=== PATIENT | female | born 1940 | race Caucasian/White ===

== ENCOUNTER 2016-10-16 16:06 | Inpatient (IN) | payer OTHER, MEDICARE ==
[2016-10-16] VITALS (23 sets, daily range): BP systolic 86–201; BP diastolic 48–141; PULSE 66–171; RESP 16–25; TEMP 99.4–104.2; O2SAT 72–100
[~2016-10-16 16:06] MED LIST: ATEN1TAB71 PO; DOCU250C PO; FLUO20TA20 PO; FOSA70TA PO; GLIP5 PO; LISI40TA PO; PERC5TAB12 PO; PRAV80 PO
[2016-10-16] MEDS ORDERED: metroNIDAZOLE 500 MG INJ 100 ML IV STA (16:11)
[2016-10-16] MEDS ORDERED: AZTREONAM INJ 2,000 MG in SODIUM CHLORIDE 0.9% INJ 100 ML IV STA (16:11)
[2016-10-16] MEDS ORDERED: AZITHROMYCIN INJ 500 MG in SODIUM CHLOR 0.9% 250 ML INJ 250 ML IV STA (16:11)
[2016-10-16] MEDS ORDERED: CEFEPIME INJ 2,000 MG in SODIUM CHLORIDE 0.9% INJ 100 ML IV STA (16:11)
[2016-10-16] MEDS ORDERED: VANCOMYCIN INJ 1 MG in SODIUM CHLOR 0.9% 250 ML INJ 250 ML IV STA (16:11)
[2016-10-16] MEDS ORDERED: DILTIAZEM INJ 125 MG in SODIUM CHLORIDE 0.9% INJ 100 ML IV SCH (16:15)
[2016-10-16] MEDS ORDERED: ACETAMINOPHEN 650 MG SUPP RECTAL ONE (16:30)
--- NOTE | 2016-10-16 16:32 | RADHPO ---
EXAM DATE/TIME: 10/16/2016 16:20 [facility] COMPARISON: No previous studies available for comparison. INDICATIONS : Post endotracheal tube placement. Syncope. MEDICAL HISTORY : Non-responsive SURGICAL HISTORY : Non-responsive ENCOUNTER: Initial ACUITY: 1 day PAIN SCORE: Non-responsive. LOCATION: Bilateral chest FINDINGS: The endotracheal tube has its tip in good position approximately 3 cm above the trev. Left perihil ar infiltrate is noted. The heart is mildly enlarged. Degenerative changes are noted throughout the thoracic spine. CONCLUSION: 1. Endotracheal tube approximately 3 cm above the trev in good position. 2. Left perihilar infiltrate is noted. 3. Mild cardiomegaly. 4. Degenerative changes involving the thoracic spine. Fahad Najera MD on October 16, 2016 at 16:27 Board Certified Radiologist. This report was verified electronically.
--- NOTE | 2016-10-16 16:54 | PD ---
HPI Chief Complaint: unresponsive Time Seen by Provider: 16:09 Travel History International Travel<30 days: No Contact w/Intl Traveler<30days: No Traveled to known affect area: No History of Present Illness HPI [phone] 76-year-old female was apparently found unresponsive in her home. Neighbors had reportedly noted that they had not seen her for 2-3 days. These papers were filed up outside the door. Paramedics found her unresponsive in respiratory distress. I have spoken with her daughter, Lizette Lriiano ) who indicates that she is not aware of history of heart disease or stroke in her mother. She does have a history of diabetes and was unresponsive once because of hypoglycemia. Her doctor is Dr. Miranda. The daughter is trying to find a list of her medication PFS Past Medical History Arthritis: Yes Blood Disorders: No Cancer: No Cardiovascular Problems: Yes High Cholesterol: Yes Diabetes: Yes Diminished Hearing: No Endocrine: Yes Genitourinary: No Hypertension: Yes Immune Disorder: No Musculoskeletal: Yes Neurologic: No Psychiatric: No Reproductive: No Respiratory: No Menopausal: Yes Past Surgical History Gynecologic Surgery: Yes (HYSTERECTOMY) Hysterectomy: Yes Neurologic Surgery: Yes (BACK) Tonsillectomy: Yes Other Surgery: Yes (TONSILS) Social History Alcohol Use: Yes (ocassionally) Tobacco Use: No Substance Use: No Allergies-Medications (Allergen,Severity, Reaction): Coded Allergies: Penicillin (Verified Allergy, Severe, HIVES, 02/06/14) Reported Meds & Prescriptions Reported Meds & Active Scripts Active Colace (Docusate Sodium) 250 Mg Cap 250 Mg PO BID 5 Days Percocet 5-325 mg (Oxycodone/Acetaminophen) Oxycodone 5/325 Acetaminophen Tab 1 Tab PO Q4H PRN Reported Pravachol 80 Mg Tab (Pravastatin Sod) 80 Mg Tab 80 Mg PO DAILY Prinivil (Lisinopril) 40 Mg Tab 40 Mg PO DAILY Fluoxetine Hcl (Fluoxetine HCl) 20 Mg Cap 20 Mg PO DAILY Fosamax (Alendronate Sodium) 70 Mg Tab 70 Mg PO Q7D TAKE 30 MINUTES BEFORE THE MORNING MEAL, ONLY WATER Tenoretic-50 (Atenolol/Chlorthalidone) 1 Tab Tab 2 Tab PO DAILY Glucotrol (Glipizide) 5 Mg Tab 5 Mg PO BID Review of Systems ROS Limitations: Altered Mental Status, Unresponsive Physical Exam Narrative Patient is in marked respiratory distress on arrival. She is unresponsive. Oxygen saturation on arrival is 60% in spite of 100% oxygen GENERAL: Well-developed female in marked respiratory distress. Her temp is 104.8 and heart rate is 120 and irregular SKIN: Warm and dry. HEAD: . Normocephalic. There is a blood-filled blister on her upper lip. EYES: Right pupil is 5 mm on arrival. The left is 4 mm. Neither pupil is reactive No scleral icterus. No injection or drainage. ENT: No nasal bleeding or discharge. Mucous membranes dry. There are multiple bruises on the right side of the tongue NECK: Trachea midline. No JVD. CARDIOVASCULAR: Rapid irregular rate. No murmur appreciated. RESPIRATORY: Coarse rhonchi bilaterally GASTROINTESTINAL: Abdomen soft, non-tender, nondistended. Hepatic and splenic margins not palpable. MUSCULOSKELETAL: No obvious deformities. Left leg is slightly shorter than the right. No clubbing. No cyanosis. No edema. NEUROLOGICAL: Unresponsive. No withdrawal to painful stimuli. There is some grimace. He has noted pupils are unequal with the right larger than the left and neither one reactive Data Data Last Documented VS Vital Signs Date Time Temp Pulse Resp B/P Pulse Ox O2 Delivery O2 Flow Rate FiO2 10/16/16 17:32 99 60 10/16/16 16:15 Non-Rebreather 15 10/16/16 16:10 104.0 171 162/68 Orders Electrocardiogram (10/16/16 16:11) Complete Blood Count With Diff (10/16/16 16:11) Comprehensive Metabolic Panel (10/16/16 16:11) Prothrombin Time / Inr (Pt) (10/16/16 16:11) Act Partial Throm Time (Ptt) (10/16/16 16:11) Lactic Acid Sepsis Protocol (10/16/16 16:11) Magnesium (Mg) (10/16/16 16:11) Troponin I (10/16/16 16:11) Urinalysis - C+S If Indicated (10/16/16 16:11) Influenzae A/B Antigen (10/16/16 16:11) Blood Culture (10/16/16 16:11) Chest, Single Ap (10/16/16 16:11) Arterial Blood Gas (Abg) (10/16/16 16:11) Blood Glucose (10/16/16 16:11) Ecg Monitoring (10/16/16 16:11) Iv Access Insert/Monitor (10/16/16 16:11) Oximetry (10/16/16 16:11) Oxygen Administration (10/16/16 16:11) Ct Brain W/O Iv Contrast(Rout) (10/16/16 16:11) Vancomycin Inj (Vancomycin Inj) (10/16/16 16:11) Metronidazole 500 Mg Inj (Flagyl 500 Mg (10/16/16 16:11) Cefepime Inj (Maxipime Inj) (10/16/16 16:11) Azithromycin Inj (Zithromax Inj) (10/16/16 16:11) Aztreonam Inj (Azactam Inj) (10/16/16 16:11) Blood Pressure (10/16/16 16:11) Vital Signs (10/16/16 16:11) Diltiazem Inj (Cardizem Inj) (10/16/16 16:15) Acetaminophen Supp (Tylenol Supp) (10/16/16 16:30) Sodium Chlor 0.9% 1000 Ml Inj (Ns 1000 M (10/16/16 17:00) Electrocardiogram (10/16/16 17:17) Potassium Chlor 20 Meq Premix (Kcl 20 Me (10/16/16 17:45) Creatine Kinase (Cpk) (10/16/16 16:42) Admit Order (Ed Use Only) (10/16/16 18:16) Aspirin Supp (Aspirin Supp) (10/16/16 18:30) Labs Laboratory Tests Test 10/16/16 10/16/16 10/16/16 16:35 16:42 16:55 Urine Collection Type CATH Urine Color YELLOW Urine Turbidity CLEAR Urine pH 5.5 Urine Specific [place] 1.010 Urine Protein 30 mg/dL Urine Glucose (UA) NEG mg/dL Urine Ketones NEG mg/dL Urine Occult Blood NEG Urine Nitrite NEG Urine Bilirubin NEG Urine Leukocyte Esterase NEG Urine RBC 0-3 /hpf Urine Squamous Epithelial 0-5 /hpf Cells Microscopic Urinalysis Comment CULT NOT INDICATED White Blood Count 14.0 TH/MM3 Red Blood Count 3.37 MIL/MM3 Hemoglobin 9.4 GM/DL Hematocrit 29.2 % Mean Corpuscular Volume 86.7 FL Mean Corpuscular Hemoglobin 28.1 PG Mean Corpuscular Hemoglobin 32.3 % Concent Red Cell Distribution Width 15.3 % Platelet Count 262 TH/MM3 Mean Platelet Volume 7.3 FL Neutrophils (%) (Auto) 90.2 % Lymphocytes (%) (Auto) 5.1 % Monocytes (%) (Auto) 4.4 % Eosinophils (%) (Auto) 0.1 % Basophils (%) (Auto) 0.2 % Neutrophils # (Auto) 12.7 TH/MM3 Lymphocytes # (Auto) 0.7 TH/MM3 Monocytes # (Auto) 0.6 TH/MM3 Eosinophils # (Auto) 0.0 TH/MM3 Basophils # (Auto) 0.0 TH/MM3 CBC Comment DIFF FINAL Differential Comment Prothrombin Time 21.4 SEC Prothromb Time International 1.9 RATIO Ratio Activated Partial 34.4 SEC Thromboplast Time Sodium Level 152 MEQ/L Potassium Level 2.4 MEQ/L Chloride Level 122 MEQ/L Carbon Dioxide Level 16.4 MEQ/L Anion Gap 14 MEQ/L Blood Urea Nitrogen 28 MG/DL Creatinine 1.60 MG/DL Estimat Glomerular Filtration 31 ML/MIN Rate Random Glucose 155 MG/DL Lactic Acid Level 1.9 mmol/L Calcium Level 5.9 MG/DL Protein Corrected Calcium 7.0 MG/DL Magnesium Level 0.9 MG/DL Total Bilirubin 0.8 MG/DL Aspartate Amino Transf 35 U/L (AST/SGOT) Alanine Aminotransferase 31 U/L (ALT/SGPT) Alkaline Phosphatase 48 U/L Total Creatine Kinase 162 U/L Troponin I 5.16 NG/ML Total Protein 4.6 GM/DL Albumin 1.8 GM/DL Blood Gas Puncture Site RT BRACHIAL Blood Gas Patient Temperature 98.6 Blood Gas HCO3 20 mmol/L Blood Gas Base Excess -3.5 mmol/L Blood Gas Oxygen Saturation 96 % Arterial Blood pH 7.46 Arterial Blood Partial 28 mmHG Pressure CO2 Arterial Blood Partial 159 mmHG Pressure O2 Arterial Blood Oxygen Content 16.9 Vol % Arterial Blood 0.0 % Carboxyhemoglobin Arterial Blood Methemoglobin 0.7 % Blood Gas Hemoglobin 12.3 G/DL Oxygen Delivery Device AC 16/VT550/PEEP 5 Blood Gas Inspired Oxygen 80 % [facility] Medical Decision Making Medical Screen Exam Complete: Yes Emergency Medical Condition: Yes Medical Record Reviewed: Yes Differential Diagnosis Differential includes CVA, intracerebral hemorrhage, pneumonia, Narrative Course EKG on arrival shows atrial fibrillation at a rate of 167. She has a left bundle branch block and marked precordial ST depression. She was given 20 mg of Cardizem and her heart rate is come down considerably and as stated in the range of 70-80. Chest x-ray shows a left heart perihilar pneumonia. The endotracheal tube is in good position. A CT scan of the head was obtained. There is a 1.1 cm area of diminished attenuation left side of the cerebellar vermis with diminished density in the sharon extending up into the cerebral peduncle's and right thalamic nuclei. Possibility of infarct or metastatic disease was raised. It was not felt that an infarct in these regions would be compatible with life. I have discussed the case with Dr Maynard and the patient will be transferred to the intensive care unit at [place]. I discussed the case with Dr. Cardenas recommends rectal aspirin Procedures Procedure Narrative On arrival it was apparent the patient required intubation for airway protection. In addition she was quite hypoxic. There was no gag reflex to direct laryngoscopy. This was done without sedation. It was stomach contents in the airway at the time of laryngoscopy and it appears likely the patient has aspirated prior to arrival. Endotracheal tube was inserted and tube position confirmed with x-ray and good bilateral breath sounds. Diagnosis Primary Impression: Cerebrovascular accident Additional Impression: Pneumonia Admitting Information Admitting Physician Requests: it Renato Lozano MD Oct 16, 2016 16:54
[2016-10-16 16:55] LABS: AUTOMATED NEUTROPHIL # 12.7 TH/MM3 (1.8-7.7); BASOPHIL % 0.2 % (0.0-2.0); EOSINOPHIL % 0.1 % (0.0-4.0); HEMATOCRIT 29.2 % (35.0-46.0); LYMPH % 5.1 % (9.0-44.0); LYMPHOCYTE # 0.7 TH/MM3 (1.0-4.8); MEAN CELL VOLUME 86.7 FL (80.0-100.0); MEAN CORPUSCULAR HEMOGLOBIN 28.1 PG (27.0-34.0); MEAN CORPUSCULAR HGB CONC 32.3 % (32.0-36.0); MONO % 4.4 % (0.0-8.0); NEUT % 90.2 % (16.0-70.0); PLATELET COUNT 262 TH/MM3 (150-450); RED BLOOD COUNT 3.37 MIL/MM3 (4.00-5.30); RED CELL DISTRIBUTION WIDTH 15.3 % (11.6-17.2)
[2016-10-16 17:00] LABS: BLOOD GAS BASE EXCESS -3.5 mmol/L (-2-2); BLOOD GAS HCO3 20 mmol/L (22-26); BLOOD GAS METHEMOGLOBIN 0.7 % (0-2); BLOOD GAS O2 HGB SATURATION 96 % (90-100); BLOOD GAS OXYGEN CONTENT 16.9 Vol % (12.0-20.0); BLOOD GAS PCO2 28 mmHG (38-42); BLOOD GAS PO2 159 mmHG (61-120); BLOOD GAS TOTAL HGB 12.3 G/DL (12.0-16.0); CRITICAL VALUE NO; DRAW SITE RT BRACHIAL; FIO2 80 %; NUMBER OF ARTERIAL PUNCTURES 1; OXYGEN DEVICE AC 16/VT550/PEEP 5; STAT NO; TEMP CORR TO 98.6
[2016-10-16] MEDS ORDERED: SODIUM CHLOR 0.9% 1000 ML INJ 1,000 ML IV ONE ×2 (17:00→19:15)
[2016-10-16 17:03] LABS: BLOOD, URINE NEG (NEG); GLUCOSE,URINE NEG (NEG); KETONE, URINE NEG (NEG); NITRITE,URINE NEG (NEG); PH, URINE 5.5 (5.0-8.5)
[2016-10-16 17:05] LABS: HEMO FLAGS DIFF FINAL
[2016-10-16 17:13] LABS: APTT (PATIENT) 34.4 SEC (24.3-30.1); INTERNATIONAL NORMALIZED RATIO 1.9 RATIO; PROTHROMBIN TIME - PATIENT 21.4 SEC (9.8-11.6)
[2016-10-16 17:16] LABS: METHOD OF COLLECTION CATH; URINE COLOR YELLOW (YELLW/STRAW)
[2016-10-16 17:18] LABS: COMMENT (UR) CULT NOT INDICATED; CULTURE IF INDICATED CULT NOT INDICATED; RBC, URINE 0-3 /hpf (0-3); SQUAMOUS EPITHELIAL CELL URINE 0-5 /hpf (0-5)
[2016-10-16 17:27] LABS: BICARBONATE 16.4 MEQ/L (21.0-32.0); MAGNESIUM 0.9 MG/DL (1.5-2.5); TOTAL BILIRUBIN ADULT 0.8 MG/DL (0.2-1.0)
[2016-10-16 17:31] LABS: POTASSIUM 2.4 MEQ/L (3.5-5.1)
--- NOTE | 2016-10-16 17:40 | RADHPO ---
EXAM DATE/TIME: 10/16/2016 17:11 [facility] COMPARISON: No previous studies available for comparison. INDICATIONS : Altered mental status. RADIATION DOSE: 60.16 CTDIvol (mGy) MEDICAL HISTORY : Hypertension. Carcinoma, breast. SURGICAL HISTORY : None. ENCOUNTER: Initial ACUITY: 1 day PAIN SCALE: Non-responsive LOCATION: cranial TECHNIQUE: Multiple contiguous axial images were obtained of the head. Using automated exposure control and adj ustment of the mA and/or kV according to patient size, radiation dose was kept as low as reasonably a chievable to obtain optimal diagnostic quality images. FINDINGS: CEREBRUM: The ventricles are normal for age. No evidence of midline shift, mass lesion, hemorrhage or acute in farction. No extra-axial fluid collections are seen. POSTERIOR FOSSA: 1.1 cm hypodense area in the left side of the cerebellar vermis. Diffuse hypodensity in the sharon exte nding up into the cerebral peduncles and the right thalamic nuclei. EXTRACRANIAL: The visualized portion of the orbits is intact. Small air-fluid level in the left sphenoid. SKULL: The calvaria is intact. No evidence of skull fracture. CONCLUSION: 1. A 1.1 cm area of diminished attenuation in the left side of the cerebellar vermis with extensive d iminished density in the sharon extending up into the cerebral peduncles and the right thalamic nuclei. An infarct in these regions would be presumably incompatible with life and therefore, I'm concerned that these may represent metastatic deposits. MRI of the brain with and without gadolinium is recomm ended for further characterization. 2. Mild sinusitis in the left sphenoid. Oleg Rey MD on October 16, 2016 at 17:32 Board Certified Radiologist. This report was verified electronically.
[2016-10-16] MEDS ORDERED: ASPIRIN 300 MG SUPP RECTAL ONE (18:30)
[2016-10-16] MEDS ORDERED: DILTIAZEM HCL 25 MG/5 ML VIAL IV ONE (18:30)
[2016-10-16] MEDS ORDERED: DEXT 5%-NACL 0.45% 1000 ML INJ 1,000 ML IV SCH (19:45)
[2016-10-16] MEDS: POTASSIUM CHLOR 20 MEQ PREMIX 100 ML IV SCH ×2 (19:54→22:23)
[2016-10-16] MEDS ORDERED: SODIUM CHLOR 0.9% 1000 ML INJ 1,000 ML IV SCH (20:00)
--- NOTE | 2016-10-16 23:58 | HHI.HP ---
HPI Service Critical Care Medicine Primary Care Physician Unknown Admission Diagnosis CVA, PNEUMONIA, RESPIRATORY FAILURE Diagnosis: Travel History International Travel<30 Days: No Contact w/Intl Traveler <30 Da: No Traveled to Known Affected Are: No History of Present Illness 76-year-old female was found unresponsive in her home. Neighbors had noted that they had not seen her for 2-3 days. Paramedics found her unresponsive in respiratory distress. She does have a history of diabetes and was unresponsive once because of hypoglycemia. Review of Systems ROS Unable to obtain patient is intubated Past Family Social History Allergies: Coded Allergies: Penicillin (Verified Allergy, Severe, HIVES, 10/16/16) Past Medical History Hypertension Dyslipidemia Diabetes mellitus Past Surgical History Hysterectomy Tonsillectomy Reported Medications Reported Meds & Active Scripts Active Active Prescriptions or Reported Medications Unobtainable Active Ordered Medications Current Medications Medications (Trade) Dose Ordered Sig/Moris Route PRN Reason Start Time Stop Time Status Last Admin Dose Admin Sodium Chloride (NS 1000 ml Inj) 1,000 ml @ 200 mls/hr Q5H IV 10/16/16 20:00 10/16/16 19:54 Family History Noncontributory Social History Unknown Physical Exam Vital Signs Vital Signs Date Time Temp Pulse Resp B/P Pulse Ox O2 Delivery O2 Flow Rate FiO2 10/16/16 21:15 99.7 74 25 137/60 100 10/16/16 21:12 100 60 10/16/16 20:20 70 20 116/59 98 Ventilator 10/16/16 20:10 68 20 110/53 97 Ventilator 10/16/16 20:00 70 20 100/51 97 Ventilator 10/16/16 19:50 66 20 94/49 97 Ventilator 10/16/16 19:40 68 20 95/48 96 Ventilator 10/16/16 19:30 68 20 99/49 96 Ventilator 10/16/16 19:20 97 Ventilator 10/16/16 19:20 78 22 109/59 97 Ventilator 10/16/16 19:19 96 60 10/16/16 19:10 74 22 103/58 93 Ventilator 10/16/16 19:10 90 10/16/16 19:00 99.4 69 20 112/54 92 Ventilator 10/16/16 18:31 102.2 71 16 126/58 99 Ventilator 10/16/16 17:32 99 60 10/16/16 17:26 71 111/48 97 Ventilator 10/16/16 17:00 99 100 10/16/16 16:48 69 86/51 97 Ventilator 10/16/16 16:43 72 116/51 100 Ventilator 10/16/16 16:23 69 125/48 100 Ventilator 10/16/16 16:16 72 101/52 100 Ventilator 10/16/16 16:15 72 Non-Rebreather 15 10/16/16 16:10 104.0 171 162/68 72 10/16/16 16:06 80 10/16/16 16:06 104.2 171 16 201/141 96 Ventilator 10/16/16 16:00 97 80 Physical Exam GENERAL: Well-nourished, well-developed patient. SKIN: Warm and dry. HEAD: Normocephalic. EYES: No scleral icterus. No injection or drainage. NECK: Supple, trachea midline. No JVD or lymphadenopathy. CARDIOVASCULAR: Regular rate and rhythm without murmurs, gallops, or rubs. RESPIRATORY: Breath sounds equal bilaterally. No accessory muscle use. GASTROINTESTINAL: Abdomen soft, non-tender, nondistended. MUSCULOSKELETAL: No cyanosis, or edema. BACK: Nontender without obvious deformity. No CVA tenderness. EXTREMITIES: No clubbing cyanosis or edema Laboratory Laboratory Tests Test 10/16/16 10/16/16 10/16/16 16:35 16:42 16:55 Urine Collection Type CATH Urine Color YELLOW Urine Turbidity CLEAR Urine pH 5.5 Urine Specific [place] 1.010 Urine Protein 30 Urine Glucose (UA) NEG Urine Ketones NEG Urine Occult Blood NEG Urine Nitrite NEG Urine Bilirubin NEG Urine Leukocyte Esterase NEG Urine RBC 0-3 Urine Squamous Epithelial 0-5 Cells Microscopic Urinalysis Comment CULT NOT INDICATED White Blood Count 14.0 Red Blood Count 3.37 Hemoglobin 9.4 Hematocrit 29.2 Mean Corpuscular Volume 86.7 Mean Corpuscular Hemoglobin 28.1 Mean Corpuscular Hemoglobin 32.3 Concent Red Cell Distribution Width 15.3 Platelet Count 262 Mean Platelet Volume 7.3 Neutrophils (%) (Auto) 90.2 Lymphocytes (%) (Auto) 5.1 Monocytes (%) (Auto) 4.4 Eosinophils (%) (Auto) 0.1 Basophils (%) (Auto) 0.2 Neutrophils # (Auto) 12.7 Lymphocytes # (Auto) 0.7 Monocytes # (Auto) 0.6 Eosinophils # (Auto) 0.0 Basophils # (Auto) 0.0 CBC Comment DIFF FINAL Differential Comment Prothrombin Time 21.4 Prothromb Time International 1.9 Ratio Activated Partial 34.4 Thromboplast Time Sodium Level 152 Potassium Level 2.4 Chloride Level 122 Carbon Dioxide Level 16.4 Anion Gap 14 Blood Urea Nitrogen 28 Creatinine 1.60 Estimat Glomerular Filtration 31 Rate Random Glucose 155 Lactic Acid Level 1.9 Calcium Level 5.9 Protein Corrected Calcium 7.0 Magnesium Level 0.9 Total Bilirubin 0.8 Aspartate Amino Transf 35 (AST/SGOT) Alanine Aminotransferase 31 (ALT/SGPT) Alkaline Phosphatase 48 Total Creatine Kinase 162 Troponin I 5.16 Total Protein 4.6 Albumin 1.8 Blood Gas Puncture Site RT BRACHIAL Blood Gas Patient Temperature 98.6 Blood Gas HCO3 20 Blood Gas Base Excess -3.5 Blood Gas Oxygen Saturation 96 Arterial Blood pH 7.46 Arterial Blood Partial 28 Pressure CO2 Arterial Blood Partial 159 Pressure O2 Arterial Blood Oxygen Content 16.9 Arterial Blood 0.0 Carboxyhemoglobin Arterial Blood Methemoglobin 0.7 Blood Gas Hemoglobin 12.3 Oxygen Delivery Device AC 16/VT550/PEEP 5 Blood Gas Inspired Oxygen 80 Date/Time Procedure Status Source Growth 10/16/16 19:10 Gram Stain Received Sputum Endotracheal Pending 10/16/16 19:10 Sputum Culture Received Sputum Endotracheal Pending 10/16/16 16:50 Aerobic Blood Culture Received Blood Peripheral Pending 10/16/16 16:50 Anaerobic Blood Culture Received Blood Peripheral Pending 10/16/16 16:46 Influenza Types A,B Antigen ([place]) - Final Complete Nasal Aspirate NEGATIVE FOR FLU A AND B ANTIGEN.... Result Diagram: 10/16/16 1642 10/16/16 1642 Imaging Last [address] 10/16/16 1611 Signed Impressions: Service Date/Time: Sunday, October 16, 2016 17:11 - CONCLUSION: 1. A 1.1 cm area of diminished attenuation in the left side of the cerebellar vermis with extensive diminished density in the sharon extending up into the cerebral peduncles and the right thalamic nuclei. An infarct in these regions would be presumably incompatible with life and therefore, I'm concerned that these may represent metastatic deposits. MRI of the brain with and without gadolinium is recommended for further characterization. 2. Mild sinusitis in the left sphenoid. Oleg Rey MD Assessment and Plan Problem List: (1) Cerebrovascular accident ICD Code: I63.9 Status: Acute (2) Pneumonia ICD Code: J18.9 Status: Acute (3) Respiratory failure ICD Code: J96.90 Status: Acute (4) Coma ICD Code: R40.20 Status: Acute Assessment and Plan Acute respiratory failure - Intubated for an airway protection - Continue mechanical ventilation - Continue duo nebs as needed - No weaning until neurologically improved Altered mental status - Multiple strokes including brainstem - Workup per neurology - Aspirin statins - Blood pressure control to avoid hypertension Elevated troponins - Due to multiple strokes including brainstem will not start patient on anticoagulation other than prophylaxis due to high risk of hemorrhagic conversion - Aspirin and statins - Consult cardiology only if neurologically improved - If there is neurological improvement and potential off meaningful recovery patient will need cardiac catheterization or stress test prior to discharge Acute kidney injury - Due to dehydration - Aggressive IV fluid resuscitation - Monitor urine output electrolytes and renal functions Pneumonia - Community-acquired versus aspiration - Cover with broad-spectrum antibiotics - Follow-up cultures and de-escalate DVT GI prophylaxis - Subcutaneous heparin and Pepcid Critical Care: The total critical care time was 35 minutes. Time to perform other separately billable procedures was not included in the critical care time. Jason Maynard MD Oct 16, 2016 23:58
[2016-10-17] VITALS (22 sets, daily range): BP systolic 128–187; BP diastolic 55–80; PULSE 73–152; RESP 16–30; TEMP 98–102.6; O2SAT 97–100
[2016-10-17] MEDS ORDERED: CHLORHEXIDINE GLUCONATE 2 % 1 PACK (2 CLOTHS) TOP PRN (00:45)
[2016-10-17] MEDS ORDERED: RESP: ALBUTEROL 2.5 MG/IPRATROPIUM 0.5 MG NEB (PRN) INH (00:45)
[2016-10-17] MEDS ORDERED: MISCELLANEOUS NURSING INFORMATION XX SCH (00:45)
[2016-10-17] MEDS ORDERED: SODIUM CHLORIDE 0.9% FLUSH 10 ML FLUSH PRN (00:45)
[2016-10-17] MEDS ORDERED: METOCLOPRAMIDE HCL 10 MG/2 ML VIAL IV PRN (00:45)
[2016-10-17] MEDS ORDERED: ACETAMINOPHEN 325 MG TAB PO PRN (00:45)
[2016-10-17] MEDS ORDERED: ONDANSETRON HCL 4 MG/2 ML VIAL IV PRN (00:45)
[2016-10-17] MEDS ORDERED: GADOBENATE DIM PF 529 MG/ML 5 ML VIAL (for RAD MRI) IV ONE (01:18)
--- NOTE | 2016-10-17 01:33 | RADRPT ---
EXAM DATE/TIME: 10/17/2016 00:42 [facility] COMPARISON: CT BRAIN W/O CONTRAST, October 16, 2016, 17:11. INDICATIONS : Metastatic disease. CONTRAST: 14 cc Multihance (gadobenate) IV MEDICAL HISTORY : Hypercholesterolemia. Hypertension. Arthritis. Diabetes. SURGICAL HISTORY : Hysterectomy. Tonsillectomy. Back. Cataracts. ENCOUNTER: Subsequent ACUITY: 4-6 days PAIN SCORE: Nonresponsive. LOCATION: cranial TECHNIQUE: Multiplanar, multisequence MRI of the brain was performed both prior to and following the administrat ion of paramagnetic contrast. FINDINGS: Abnormal signal is seen involving the occipital lobe, parietal lobe, and temporal lobe on the right. Abnormal signal is also seen throughout the right thalamus, to a lesser degree left thalamus, sharon, b ilateral cerebral peduncles, and cerebellar vermis. Small foci of abnormal signal are also seen scatt ered throughout the left cerebellar hemisphere. All of these areas show restricted diffusion. These a reas show considerable loss of signal on the ADC map. No acute hemorrhage observed. There is no midli ne shift or herniation. See the MRA report separately. CONCLUSION: 1. Multifocal nonhemorrhagic acute infarctions involving the right MCA territory as well as the thala mi, sharon, cerebral peduncles, and cerebellum as detailed above. 2. See the MRA report separately. Venkatesh Peña Jr., MD on October 17, 2016 at 1:26 Board Certified Radiologist. This report was verified electronically.
--- NOTE | 2016-10-17 01:35 | RADRPT ---
EXAM DATE/TIME: 10/17/2016 00:42 [facility] COMPARISON: No previous studies available for comparison. INDICATIONS : Stroke. MEDICAL HISTORY : Hypertension. Hypercholesterolemia. Arthritis. Diabetes. SURGICAL HISTORY : Hysterectomy. Tonsillectomy. Back. Cataracts. ENCOUNTER: Subsequent ACUITY: 4-6 days PAIN SCORE: Nonresponsive. LOCATION: cranial Please note a normal MRA of the brain does not entirely exclude the possibility of a small aneurysm, nor the possibility of distal intracranial vessel disease. TECHNIQUE: 3D time of flight MRA was performed. Source images, multiplanar STS MIP, and 3D volume MIP reconstru ctions were reviewed. FINDINGS: Markedly abnormal MRA. There is absence of signal throughout the visualized portions of the extracran ial as well as the intracranial ICA on the right. There is reconstitution of signal within the suprac linoid ICA on the right via the anterior commuting artery. There is loss of signal involving the M1 a nd proximal M2 branches on the left. Absence of signal throughout the right posterior cerebral artery . A left posterior communicating artery is noted. A focal area of either high-grade stenosis or short segment occlusion involving the proximal M2 branch on the right. Signal is seen throughout the left ICA. Patchy heterogeneous signal throughout the basilar artery. The right vertebral artery supplies t he basilar. Left vertebral artery terminates in a PICA distribution. 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 Venkatesh Peña Jr., MD on October 17, 2016 at 1:32 Board Certified Radiologist. This report was verified electronically.
[2016-10-17] MEDS: SODIUM CHLOR 0.9% 1000 ML INJ 1,000 ML IV SCH ×3 (01:38→16:31)
[2016-10-17] MEDS: AZTREONAM INJ 2,000 MG in SODIUM CHLORIDE 0.9% INJ 100 ML IV SCH ×2 (01:38→07:56)
[2016-10-17] MEDS: HEPARIN SODIUM - SQ 10,000 UNITS/ML VIAL SQ SCH ×2 (01:38→13:10)
[2016-10-17] MEDS: CHLORHEXIDINE GLUCONATE 2 % 1 PACK (2 CLOTHS) TOP SCH (01:38)
[2016-10-17 04:38] LABS: BLOOD GAS BASE EXCESS -7.7 mmol/L (-2-2); BLOOD GAS HCO3 16 mmol/L (22-26); BLOOD GAS METHEMOGLOBIN 1.9 % (0-2); BLOOD GAS O2 HGB SATURATION 96 % (90-100); BLOOD GAS OXYGEN CONTENT 14.5 Vol % (12.0-20.0); BLOOD GAS PCO2 26 mmHg (38-42); BLOOD GAS PO2 147 mmHg (61-120); BLOOD GAS TOTAL HGB 10.6 G/DL (12.0-16.0); TEMP CORR TO 98.6
[2016-10-17 04:39] LABS: CRITICAL VALUE YES; OXYGEN DEVICE VENTILATOR
[2016-10-17 04:40] LABS: DRAW SITE RT RADIAL; FIO2 50 %; NUMBER OF ARTERIAL PUNCTURES 1; STAT NO; ULNAR PULSE PRESENT; VENT SETTINGS AC14/550/5PEEP
[2016-10-17 05:05] LABS: HEMATOCRIT 33.9 % (35.0-46.0); MEAN CELL VOLUME 86.7 FL (80.0-100.0); MEAN CORPUSCULAR HEMOGLOBIN 27.9 PG (27.0-34.0); MEAN CORPUSCULAR HGB CONC 32.2 % (32.0-36.0); PLATELET COUNT 200 TH/MM3 (150-450); RED BLOOD COUNT 3.91 MIL/MM3 (4.00-5.30); RED CELL DISTRIBUTION WIDTH 15.4 % (11.6-17.2); REVIEW FLAG FINAL; WHITE BLOOD COUNT 21.3 TH/MM3 (4.0-11.0)
[2016-10-17 05:33] LABS: ALT (GPT) 38 U/L (10-53); ANION GAP 15 MEQ/L (5-15); AST (GOT) 37 U/L (15-37); BICARBONATE 18.3 MEQ/L (21.0-32.0); BLOOD UREA NITROGEN 41 MG/DL (7-18); CHLORIDE 115 MEQ/L (98-107); GLOMERULAR FILTRATION RATE 20 ML/MIN (>89); MAGNESIUM 1.1 MG/DL (1.5-2.5); POTASSIUM 3.7 MEQ/L (3.5-5.1); SODIUM (NA) 148 MEQ/L (136-145)
[2016-10-17 05:37] LABS: ALKALINE PHOSPHATASE 56 U/L (45-117); CREATINE KINASE 233 U/L (26-192)
[2016-10-17 06:01] LABS: CKMB 6.8 NG/ML (0.5-3.6)
[2016-10-17] MEDS: DOCUSATE SODIUM 100 MG/10 ML UDC G-TUBE SCH ×2 (07:58→20:14)
[2016-10-17] MEDS: FAMOTIDINE 20 MG/2 ML VIAL IV PUSH SCH ×2 (07:58→20:12)
[2016-10-17] MEDS: ARTIFICIAL TEARS OPTH SOLN 15 ML BTL EACH EYE SCH ×3 (07:59→16:49)
[2016-10-17] MEDS: SODIUM CHLORIDE 0.9% FLUSH 10 ML FLUSH SCH ×2 (08:21→20:14)
[2016-10-17] MEDS: BENEPROTEIN POWDER 1 PACK G-TUBE SCH ×3 (09:00→17:11)
[2016-10-17] MEDS ORDERED: GLUCAGON 1 MG/ML VIAL OTHER PRN (09:00)
[2016-10-17] MEDS ORDERED: FUROSEMIDE 20 MG/2 ML VIAL IV PUSH ONE (09:00)
[2016-10-17] MEDS: INSULIN NovoLIN REGULAR SUPPLEMENTAL SCALE SQ SCH ×3 (09:00→20:12)
[2016-10-17] MEDS ORDERED: DEXTROSE 50% IN WATER 50 ML VIAL(D50) IV PUSH PRN (09:00)
[2016-10-17] MEDS ORDERED: MAGNESIUM SULFATE 1 GM PREMIX 100 ML IV ONE ×2 (09:15→14:00)
--- NOTE | 2016-10-17 09:18 | HHI.CCPN ---
Subjective Remarks/Hospital Course 76-year-old female was found unresponsive in her home. Neighbors had noted that they had not seen her for 2-3 days. Paramedics found her unresponsive in respiratory distress. She does have a history of diabetes and was unresponsive once because of hypoglycemia. 10/17 Patient is intubated unresponsive on no sedation. Afebrile. MRI brain showed multifocal nonhemorrhagic acute infarctions involving the right MCA territory as well as the thalami, sharon, cerebral peduncles, and cerebellum. MRA nain showed occlusion of the right carotid artery, right posterior cerebral artery, and left middle cerebral artery. Objective Vital Signs Date Time Temp Pulse Resp B/P Pulse Ox O2 Delivery O2 Flow Rate FiO2 10/17/16 08:19 98 40 10/17/16 06:00 73 10/17/16 04:00 98.0 16 151/65 10/16/16 20:20 Ventilator 10/16/16 16:15 15 Intake and Output 10/16/16 10/16/16 10/17/16 08:00 16:00 00:00 Intake Total 3250 ml Output Total 600 ml Balance 2650 ml Result Diagram: 10/17/16 0442 10/17/16 0442 Other Results Laboratory Tests Test 10/16/16 10/16/16 10/16/16 10/17/16 16:35 16:42 16:55 04:28 Urine Collection Type CATH Urine Color YELLOW Urine Turbidity CLEAR Urine pH 5.5 Urine Specific [place] 1.010 Urine Protein 30 mg/dL Urine Glucose (UA) NEG mg/dL Urine Ketones NEG mg/dL Urine Occult Blood NEG Urine Nitrite NEG Urine Bilirubin NEG Urine Leukocyte Esterase NEG Urine RBC 0-3 /hpf Urine Squamous Epithelial 0-5 /hpf Cells Microscopic Urinalysis Comment CULT NOT INDICATED White Blood Count 14.0 TH/MM3 Red Blood Count 3.37 MIL/MM3 Hemoglobin 9.4 GM/DL Hematocrit 29.2 % Mean Corpuscular Volume 86.7 FL Mean Corpuscular Hemoglobin 28.1 PG Mean Corpuscular Hemoglobin 32.3 % Concent Red Cell Distribution Width 15.3 % Platelet Count 262 TH/MM3 Mean Platelet Volume 7.3 FL Neutrophils (%) (Auto) 90.2 % Lymphocytes (%) (Auto) 5.1 % Monocytes (%) (Auto) 4.4 % Eosinophils (%) (Auto) 0.1 % Basophils (%) (Auto) 0.2 % Neutrophils # (Auto) 12.7 TH/MM3 Lymphocytes # (Auto) 0.7 TH/MM3 Monocytes # (Auto) 0.6 TH/MM3 Eosinophils # (Auto) 0.0 TH/MM3 Basophils # (Auto) 0.0 TH/MM3 CBC Comment DIFF FINAL Differential Comment Prothrombin Time 21.4 SEC Prothromb Time International 1.9 RATIO Ratio Activated Partial 34.4 SEC Thromboplast Time Sodium Level 152 MEQ/L Potassium Level 2.4 MEQ/L Chloride Level 122 MEQ/L Carbon Dioxide Level 16.4 MEQ/L Anion Gap 14 MEQ/L Blood Urea Nitrogen 28 MG/DL Creatinine 1.60 MG/DL Estimat Glomerular Filtration 31 ML/MIN Rate Random Glucose 155 MG/DL Lactic Acid Level 1.9 mmol/L Calcium Level 5.9 MG/DL Protein Corrected Calcium 7.0 MG/DL Magnesium Level 0.9 MG/DL Total Bilirubin 0.8 MG/DL Aspartate Amino Transf 35 U/L (AST/SGOT) Alanine Aminotransferase 31 U/L (ALT/SGPT) Alkaline Phosphatase 48 U/L Total Creatine Kinase 162 U/L Troponin I 5.16 NG/ML Total Protein 4.6 GM/DL Albumin 1.8 GM/DL Blood Gas Puncture Site RT BRACHIAL RT RADIAL Blood Gas Patient Temperature 98.6 98.6 Blood Gas HCO3 20 mmol/L 16 mmol/L Blood Gas Base Excess -3.5 mmol/L -7.7 mmol/L Blood Gas Oxygen Saturation 96 % 96 % Arterial Blood pH 7.46 7.41 Arterial Blood Partial 28 mmHG 26 mmHg Pressure CO2 Arterial Blood Partial 159 mmHG 147 mmHg Pressure O2 Arterial Blood Oxygen Content 16.9 Vol % 14.5 Vol % Arterial Blood 0.0 % 1.0 % Carboxyhemoglobin Arterial Blood Methemoglobin 0.7 % 1.9 % Blood Gas Hemoglobin 12.3 G/DL 10.6 G/DL Oxygen Delivery Device AC VENTILATOR 16/VT550/PEEP 5 Blood Gas Inspired Oxygen 80 % 50 % Blood Gas Ventilator Setting AC14/550/5PEEP Test 10/17/16 04:42 White Blood Count 21.3 TH/MM3 Red Blood Count 3.91 MIL/MM3 Hemoglobin 10.9 GM/DL Hematocrit 33.9 % Mean Corpuscular Volume 86.7 FL Mean Corpuscular Hemoglobin 27.9 PG Mean Corpuscular Hemoglobin 32.2 % Concent Red Cell Distribution Width 15.4 % Platelet Count 200 TH/MM3 Mean Platelet Volume 8.4 FL Sodium Level 148 MEQ/L Potassium Level 3.7 MEQ/L Chloride Level 115 MEQ/L Carbon Dioxide Level 18.3 MEQ/L Anion Gap 15 MEQ/L Blood Urea Nitrogen 41 MG/DL Creatinine 2.35 MG/DL Estimat Glomerular Filtration 20 ML/MIN Rate Random Glucose 174 MG/DL Calcium Level 7.5 MG/DL Phosphorus Level 2.4 MG/DL Magnesium Level 1.1 MG/DL Total Bilirubin 1.0 MG/DL Aspartate Amino Transf 37 U/L (AST/SGOT) Alanine Aminotransferase 38 U/L (ALT/SGPT) Alkaline Phosphatase 56 U/L Total Creatine Kinase 233 U/L Creatine Kinase MB 6.8 NG/ML Creatine Kinase MB % 2.9 % Troponin I 5.79 NG/ML Total Protein 5.6 GM/DL Albumin 2.1 GM/DL Imaging Last Impressions Head CT 10/16/16 1611 Signed Impressions: Service Date/Time: Sunday, October 16, 2016 17:11 - CONCLUSION: 1. A 1.1 cm area of diminished attenuation in the left side of the cerebellar vermis with extensive diminished density in the sharon extending up into the cerebral peduncles and the right thalamic nuclei. An infarct in these regions would be presumably incompatible with life and therefore, I'm concerned that these may represent metastatic deposits. MRI of the brain with and without gadolinium is recommended for further characterization. 2. Mild sinusitis in the left sphenoid. 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 Venkatesh Peña Jr., MD Brain MRI 10/16/16 0000 Signed Impressions: Service Date/Time: Monday, October 17, 2016 00:42 - CONCLUSION: 1. 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 2. See the MRA report separately. Venkatesh Peña Jr., MD Objective Remarks GENERAL: Patient is lying in bed intubated and unresponsive. SKIN: Warm and dry. HEAD: Normocephalic. EYES: No scleral icterus. No injection or drainage. NECK: Supple, trachea midline. No JVD or lymphadenopathy. CARDIOVASCULAR: Regular rate and rhythm without murmurs, gallops, or rubs. RESPIRATORY: Breath sounds equal bilaterally. No accessory muscle use. GASTROINTESTINAL: Abdomen soft, non-tender, nondistended. MUSCULOSKELETAL: No cyanosis, or edema. Neuro: Unresponsive, intubated does not follow commands. A/P Problem List: (1) Cerebrovascular accident ICD Code: I63.9 Status: Acute (2) Pneumonia ICD Code: J18.9 Status: Acute (3) Respiratory failure ICD Code: J96.90 Status: Acute (4) Coma ICD Code: R40.20 Status: Acute Assessment and Plan VDRF Encephalopathy Multiple khan including brain stem. Elevated trop/NSTEMI ARF Coagulopathy Hypernatremia Leukocytosis Pneumonia Plan Neuro: On no sedation unresponsive. Monitor neuro status and avoid sedatives. MRA brain: Occlusion of the right carotid artery, right posterior cerebral artery, and left middle cerebral artery. MRI brain: showed multifocal nonhemorrhagic acute infarctions involving the right MCA territory as well as the thalami, sharon, cerebral peduncles, and cerebellum Neuro consulted: Dr. Arnold, For EEG today. Given ASA 300mg x1 last night. Continue with ASA discussed with Neuro. Pulm: Continue with vent support keep sat >92% Bronchodilators. Decrease TV 450. SBT daily as mundo her mental status will preclude her from extubation CV: Monitor HR and BP keep MAP>65mm Hg Monitor CK/trop, check 2D echo to eval LV function. Cards eval. Check Lipid panel. Add Pravastatin 20mg daily, ASA 325mg daily. Due to multiple strokes including brainstem will not start patient on anticoagulation other than prophylaxis due to high risk of hemorrhagic conversion : Monitor renal function, I/O's, avoid nephrotoxins. Check renal US, renal eval. On NS@125ml/hr, diurese with Lasix 20mg x1 GI: Start TF- Nepro with goal rate 40ml/hr, on Pepcid 10mg IV Q12 ID: Continue with abx ( Azithromycin, Aztreonam) monitor for signs of infections ( Fever, WBC) Follow up on sputum, blood and urine cxs. Nasal washing negative for Influenza. Check strep pneumonia and Legionella urinary Ag Endo: SSI with accucheks for glycemic control Heme: Monitor CBC and Coags GI prophylaxis- On Pepcid 10mg IV Q12 DVT prophylaxis- SCD, Heparin SQ Palliative care eval to asses with goals of care. Prognosis guarded. Patient is critically ill with resp failure, encephalopathy, multiple CVA's including brain stem, NSTEMI, renal failure and pneumonia. CCT 30 mins Katelyn Perkins MD Oct 17, 2016 09:18 DVT GI prophylaxis - Subcutaneous heparin and Pepcid Critical Care: The total critical care time was 35 minutes. Time to perform other separately billable procedures was not included in the critical care time. Katelyn Perkins MD Oct 17, 2016 09:18
[2016-10-17] MEDS ORDERED: PRAVASTATIN SOD 20 MG TAB PO SCH (09:30)
[2016-10-17 09:37] LABS: HDL CHOLESTEROL 32.3 MG/DL (40.0-60.0)
[2016-10-17] MEDS: ASPIRIN 325 MG TAB PO SCH (10:26)
[2016-10-17 10:45] LABS: BLOOD GAS BASE EXCESS -7.1 mmol/L (-2-2); BLOOD GAS CARBOXYHEMOGLOBIN 0.2 % (0-4); BLOOD GAS HCO3 16 mmol/L (22-26); BLOOD GAS O2 HGB SATURATION 96 % (90-100); BLOOD GAS OXYGEN CONTENT 14.5 Vol % (12.0-20.0); BLOOD GAS PCO2 25 mmHg (38-42); BLOOD GAS PO2 144 mmHg (61-120); BLOOD GAS TOTAL HGB 10.6 G/DL (12.0-16.0); CRITICAL VALUE YES; OXYGEN DEVICE VENTILATOR; TEMP CORR TO 98.6
[2016-10-17 10:46] LABS: DRAW SITE RT RADIAL; FIO2 40 %; NUMBER OF ARTERIAL PUNCTURES 1; STAT NO; VENT SETTINGS A/C14/450/PEEP5
[2016-10-17] MEDS: RESP: ALBUTEROL 2.5 MG/IPRATROPIUM 0.5 MG NEB (SCH) NEB ×3 (11:15→20:47)
[2016-10-17 12:10] LABS: APTT (PATIENT) 31.4 SEC (24.3-30.1); INTERNATIONAL NORMALIZED RATIO 1.3 RATIO; PROTHROMBIN TIME - PATIENT 14.5 SEC (9.8-11.6)
[2016-10-17 12:21] LABS: AUTOMATED NEUTROPHIL # 16.1 TH/MM3 (1.8-7.7); BASOPHIL % 0.2 % (0.0-2.0); HEMO FLAGS DIFF FINAL; LYMPH % 6.3 % (9.0-44.0); LYMPHOCYTE # 1.1 TH/MM3 (1.0-4.8); MEAN CELL VOLUME 86.5 FL (80.0-100.0); MEAN CORPUSCULAR HEMOGLOBIN 28.4 PG (27.0-34.0); MEAN CORPUSCULAR HGB CONC 32.9 % (32.0-36.0); MONO % 2.3 % (0.0-8.0); NEUT % 91.2 % (16.0-70.0); PLATELET COUNT 205 TH/MM3 (150-450); RED CELL DISTRIBUTION WIDTH 15.6 % (11.6-17.2); WHITE BLOOD COUNT 17.6 TH/MM3 (4.0-11.0)
[2016-10-17 12:36] LABS: ANION GAP 10 MEQ/L (5-15); BICARBONATE 22.4 MEQ/L (21.0-32.0); BLOOD UREA NITROGEN 46 MG/DL (7-18); CHLORIDE 115 MEQ/L (98-107); CREATINE KINASE 192 U/L (26-192); GLOMERULAR FILTRATION RATE 22 ML/MIN (>89); MAGNESIUM 1.4 MG/DL (1.5-2.5); POTASSIUM 3.4 MEQ/L (3.5-5.1); SODIUM (NA) 147 MEQ/L (136-145)
--- NOTE | 2016-10-17 12:36 | PD.CONS ---
History of Present Illness Service Neurology Consult Requested By er Reason for Consult possible stroke Primary Care Physician Unknown History of Present Illness 76-year-old female was found unresponsive in her home. Neighbors had noted that they had not seen her for 2-3 days. Paramedics found her unresponsive in respiratory distress. sent to po er. noted to be obtunded. ct brain showed brainstem lesions. intubated and sent to [facility]. not tpa candidate. mri brain with multiple strokes. pt is unresponsive. Review of Systems ROS Unable to obtain patient is intubated Past Family Social History Allergies: Coded Allergies: Penicillin (Verified Allergy, Severe, HIVES, 10/16/16) Past Medical History Hypertension Dyslipidemia Diabetes mellitus Past Surgical History Hysterectomy Tonsillectomy Reported Medications Reported Meds & Active Scripts Family History Noncontributory Social History Unknown Review of Systems All other ROS: Unable to obtain Past Family Social History Allergies: Coded Allergies: Penicillin (Verified Allergy, Severe, HIVES, 10/16/16) Active Ordered Medications Current Medications Medications (Trade) Dose Ordered Sig/Moris Route Start Time Stop Time Status Last Admin (NS 1000 ml Inj) 1,000 ml @ 125 mls/hr Q8H IV 10/17/16 00:31 10/17/16 08:20 (NS Flush) 2 ml UNSCH PRN .XX 10/17/16 00:45 (NS Flush) 2 ml BID .XX 10/17/16 09:00 (Tylenol) 650 mg Q6H PRN PO 10/17/16 00:45 (Morphine Inj) 2 mg Q2H PRN IV 10/17/16 00:45 (Pepcid Inj) 10 mg Q12HR IV PUSH 10/17/16 09:00 10/17/16 07:58 (Ativan Inj) 1 mg Q1H PRN IV 10/17/16 00:45 (Tears Naturale Opth Soln) 1 drop TID EACH EYE 10/17/16 09:00 (Zofran Inj) 4 mg Q6H PRN IV 10/17/16 00:45 (Reglan Inj) 5 mg Q6H PRN IV 10/17/16 00:45 (Colace Liq) 100 mg Q12HR G-TUBE 10/17/16 09:00 10/17/16 07:58 (Heparin Inj) 5,000 units Q12H SQ 10/17/16 01:00 10/17/16 01:38 Miscellaneous Information 1 Q361D XX 10/17/16 00:45 (Chlorhexidine 2% Cloth) 3 pack Taper DAILY@04 TOP 10/17/16 04:00 10/13/17 03:59 10/17/16 01:38 Chlorhexidine Gluconate 3 pack 3 pack UNSCH PRN TOP 10/17/16 00:45 Azithromycin 500 mg/Sodium Chloride 250 ml @ 250 mls/hr Q24H IV 10/17/16 19:00 (Azactam Inj/NS Inj) 100 ml @ 200 mls/hr Q8H IV 10/17/16 01:00 10/17/16 07:56 (Beneprotein Powder) 2 pack TID G-TUBE 10/17/16 09:00 10/17/16 09:00 (D50w (Vial) Inj) 25 ml UNSCH PRN IV PUSH 10/17/16 09:00 (Glucagon Inj) 1 mg UNSCH PRN OTHER 10/17/16 09:00 (NovoLIN R SUPPLEMENTAL SCALE) 1 Q6H SQ 10/17/16 09:00 10/17/16 09:00 (Pravachol) 20 mg DAILY PO 10/17/16 09:30 10/17/16 10:02 (Aspirin) 325 mg DAILY PO 10/17/16 10:15 10/17/16 10:26 Exam I&O / VS 10/16/16 10/16/16 10/17/16 15:00 23:00 07:00 Intake Total 3250 ml 2549 ml Output Total 600 ml 800 ml Balance 2650 ml 1749 ml Intake IV Total 3250 ml 2549 ml Output Urine Total 600 ml 800 ml # Voids 0 Vital Signs Date Time Temp Pulse Resp B/P Pulse Ox O2 Delivery O2 Flow Rate FiO2 10/17/16 11:15 100 40 10/17/16 10:00 78 10/17/16 08:19 98 40 10/17/16 08:00 99.7 81 21 175/74 97 10/17/16 08:00 81 10/17/16 06:00 73 10/17/16 04:50 100 40 10/17/16 04:00 79 10/17/16 04:00 98.0 79 16 151/65 100 10/17/16 03:53 100 50 10/17/16 02:00 75 10/17/16 01:34 100 60 10/17/16 00:10 100 10/17/16 00:00 77 10/17/16 00:00 98.4 77 24 128/55 100 10/16/16 21:15 99.7 74 25 137/60 100 10/16/16 21:12 100 60 10/16/16 20:20 70 20 116/59 98 Ventilator 10/16/16 20:10 68 20 110/53 97 Ventilator 10/16/16 20:00 70 20 100/51 97 Ventilator 10/16/16 19:50 66 20 94/49 97 Ventilator 10/16/16 19:40 68 20 95/48 96 Ventilator 10/16/16 19:30 68 20 99/49 96 Ventilator 10/16/16 19:20 97 Ventilator 10/16/16 19:20 78 22 109/59 97 Ventilator 10/16/16 19:19 96 60 10/16/16 19:10 74 22 103/58 93 Ventilator 10/16/16 19:10 90 10/16/16 19:00 99.4 69 20 112/54 92 Ventilator 10/16/16 18:31 102.2 71 16 126/58 99 Ventilator 10/16/16 17:32 99 60 10/16/16 17:26 71 111/48 97 Ventilator 10/16/16 17:00 99 100 10/16/16 16:48 69 86/51 97 Ventilator 10/16/16 16:43 72 116/51 100 Ventilator 10/16/16 16:23 69 125/48 100 Ventilator 10/16/16 16:16 72 101/52 100 Ventilator 10/16/16 16:15 72 Non-Rebreather 15 10/16/16 16:10 104.0 171 162/68 72 10/16/16 16:06 80 10/16/16 16:06 104.2 171 16 201/141 96 Ventilator 10/16/16 16:00 97 80 Exam Comments intubated, no sedation. coma state, non-verbal, not following, ou 5mm fixed, eom impaired. +corneal reflex, can overbreath vent per rn, extensor posture of both ue, +enid le babinski Review/Management Diagnosis/Plan: (1) Acute ischemic multifocal posterior circulation stroke Plan: multifocal infarcts; midbrain and thalamic bilateral strokes multi-focal vessel occlusion recs: severe brainstem strokes. very high probability of /or severe neurological disability; in addition has renal failure and elevated trops aspirin/hep dvt prophylaxis high risk for ICH transformation with stronger anticoagulant unable to get a hold of daughter at present palliative care consult appreciate ccm and nursing care d/w ccm/rn (2) Coma (3) Atrial fibrillation (4) Respiratory failure Problem Qualifiers (1) Acute ischemic multifocal posterior circulation stroke: Qualified Code: I63.539 - Acute ischemic multifocal posterior circulation stroke, unspecified laterality (2) Coma: (3) Atrial fibrillation: Qualified Code: I48.91 - Atrial fibrillation, unspecified type (4) Respiratory failure: Sean Cardenas MD Oct 17, 2016 12:36
--- NOTE | 2016-10-17 12:41 | PD.CONS ---
HPI Service Nephrology Consult Requested By Reason for Consult Acute renal insufficiency Primary Care Physician Unknown History of Present Illness Patient is a 76-year-old white female who was found unresponsive and brought to emergency intubated and has been discovered to have right carotid artery occlusion and severe compromise in her cerebral circulation with multiple infarction involving the brainstem including palms cerebellar area involving right posterior cerebral artery occlusion, right middle cerebral artery areas and she is in deep coma, on ventilator, I was consulted due to acute renal insufficiency creatinine is higher at 2.3 from 1.6 she had the atrial fibrillation identified as a possible cause of stroke. Review of Systems ROS Limitations: Clinical Condition Past Family Social History Allergies: Coded Allergies: Penicillin (Verified Allergy, Severe, HIVES, 10/16/16) Past Medical History Hypertension Hyperlipidemia Diabetes Past Surgical History Tonsillectomy Hysterectomy Reported Medications Reported Meds & Active Scripts Active Active Prescriptions or Reported Medications Unobtainable Family History Noncontributory Social History Unknown Physical Exam Vital Signs Vital Signs Date Time Temp Pulse Resp B/P Pulse Ox O2 Delivery O2 Flow Rate FiO2 10/17/16 11:15 100 40 10/17/16 10:00 78 10/17/16 08:19 98 40 10/17/16 08:00 99.7 81 21 175/74 97 10/17/16 08:00 81 10/17/16 06:00 73 10/17/16 04:50 100 40 10/17/16 04:00 79 10/17/16 04:00 98.0 79 16 151/65 100 10/17/16 03:53 100 50 10/17/16 02:00 75 10/17/16 01:34 100 60 10/17/16 00:10 100 10/17/16 00:00 77 10/17/16 00:00 98.4 77 24 128/55 100 10/16/16 21:15 99.7 74 25 137/60 100 10/16/16 21:12 100 60 10/16/16 20:20 70 20 116/59 98 Ventilator 10/16/16 20:10 68 20 110/53 97 Ventilator 10/16/16 20:00 70 20 100/51 97 Ventilator 10/16/16 19:50 66 20 94/49 97 Ventilator 10/16/16 19:40 68 20 95/48 96 Ventilator 10/16/16 19:30 68 20 99/49 96 Ventilator 10/16/16 19:20 97 Ventilator 10/16/16 19:20 78 22 109/59 97 Ventilator 10/16/16 19:19 96 60 10/16/16 19:10 74 22 103/58 93 Ventilator 10/16/16 19:10 90 10/16/16 19:00 99.4 69 20 112/54 92 Ventilator 10/16/16 18:31 102.2 71 16 126/58 99 Ventilator 10/16/16 17:32 99 60 10/16/16 17:26 71 111/48 97 Ventilator 10/16/16 17:00 99 100 10/16/16 16:48 69 86/51 97 Ventilator 10/16/16 16:43 72 116/51 100 Ventilator 10/16/16 16:23 69 125/48 100 Ventilator 10/16/16 16:16 72 101/52 100 Ventilator 10/16/16 16:15 72 Non-Rebreather 15 10/16/16 16:10 104.0 171 162/68 72 10/16/16 16:06 80 10/16/16 16:06 104.2 171 16 201/141 96 Ventilator 10/16/16 16:00 97 80 Physical Exam GENERAL: Well-nourished, sick patient. SKIN: Warm and dry. HEAD: Normocephalic. EYES: No scleral icterus. No injection or drainage. NECK: Supple, trachea midline. Intubated CARDIOVASCULAR: Irregular RESPIRATORY: Breath sounds equal bilaterally. No accessory muscle use. GASTROINTESTINAL: Abdomen soft, non-tender, nondistended. EXTREMITIES: No cyanosis, mild edema. NEUROLOGICAL: Coma Laboratory Laboratory Tests Test 10/16/16 10/16/16 10/16/16 10/17/16 16:35 16:42 16:55 04:28 Urine Collection Type CATH Urine Color YELLOW Urine Turbidity CLEAR Urine pH 5.5 Urine Specific [place] 1.010 Urine Protein 30 Urine Glucose (UA) NEG Urine Ketones NEG Urine Occult Blood NEG Urine Nitrite NEG Urine Bilirubin NEG Urine Leukocyte Esterase NEG Urine RBC 0-3 Urine Squamous Epithelial 0-5 Cells Microscopic Urinalysis Comment CULT NOT INDICATED White Blood Count 14.0 Red Blood Count 3.37 Hemoglobin 9.4 Hematocrit 29.2 Mean Corpuscular Volume 86.7 Mean Corpuscular Hemoglobin 28.1 Mean Corpuscular Hemoglobin 32.3 Concent Red Cell Distribution Width 15.3 Platelet Count 262 Mean Platelet Volume 7.3 Neutrophils (%) (Auto) 90.2 Lymphocytes (%) (Auto) 5.1 Monocytes (%) (Auto) 4.4 Eosinophils (%) (Auto) 0.1 Basophils (%) (Auto) 0.2 Neutrophils # (Auto) 12.7 Lymphocytes # (Auto) 0.7 Monocytes # (Auto) 0.6 Eosinophils # (Auto) 0.0 Basophils # (Auto) 0.0 CBC Comment DIFF FINAL Differential Comment Prothrombin Time 21.4 Prothromb Time International 1.9 Ratio Activated Partial 34.4 Thromboplast Time Sodium Level 152 Potassium Level 2.4 Chloride Level 122 Carbon Dioxide Level 16.4 Anion Gap 14 Blood Urea Nitrogen 28 Creatinine 1.60 Estimat Glomerular Filtration 31 Rate Random Glucose 155 Lactic Acid Level 1.9 Calcium Level 5.9 Protein Corrected Calcium 7.0 Magnesium Level 0.9 Total Bilirubin 0.8 Aspartate Amino Transf 35 (AST/SGOT) Alanine Aminotransferase 31 (ALT/SGPT) Alkaline Phosphatase 48 Total Creatine Kinase 162 Troponin I 5.16 Total Protein 4.6 Albumin 1.8 Blood Gas Puncture Site RT BRACHIAL RT RADIAL Blood Gas Patient Temperature 98.6 98.6 Blood Gas HCO3 20 16 Blood Gas Base Excess -3.5 -7.7 Blood Gas Oxygen Saturation 96 96 Arterial Blood pH 7.46 7.41 Arterial Blood Partial 28 26 Pressure CO2 Arterial Blood Partial 159 147 Pressure O2 Arterial Blood Oxygen Content 16.9 14.5 Arterial Blood 0.0 1.0 Carboxyhemoglobin Arterial Blood Methemoglobin 0.7 1.9 Blood Gas Hemoglobin 12.3 10.6 Oxygen Delivery Device AC VENTILATOR 16/VT550/PEEP 5 Blood Gas Inspired Oxygen 80 50 Blood Gas Ventilator Setting AC14/550/5PEEP Test 10/17/16 10/17/16 10/17/16 04:42 10:35 11:31 White Blood Count 21.3 17.6 Red Blood Count 3.91 3.70 Hemoglobin 10.9 10.5 Hematocrit 33.9 32.0 Mean Corpuscular Volume 86.7 86.5 Mean Corpuscular Hemoglobin 27.9 28.4 Mean Corpuscular Hemoglobin 32.2 32.9 Concent Red Cell Distribution Width 15.4 15.6 Platelet Count 200 205 Mean Platelet Volume 8.4 8.4 Sodium Level 148 Potassium Level 3.7 Chloride Level 115 Carbon Dioxide Level 18.3 Anion Gap 15 Blood Urea Nitrogen 41 Creatinine 2.35 Estimat Glomerular Filtration 20 Rate Random Glucose 174 Calcium Level 7.5 Phosphorus Level 2.4 Magnesium Level 1.1 Total Bilirubin 1.0 Aspartate Amino Transf 37 (AST/SGOT) Alanine Aminotransferase 38 (ALT/SGPT) Alkaline Phosphatase 56 Total Creatine Kinase 233 Creatine Kinase MB 6.8 Creatine Kinase MB % 2.9 Troponin I 5.79 Total Protein 5.6 Albumin 2.1 Triglycerides Level 123 Cholesterol Level 96 LDL Cholesterol 39 HDL Cholesterol 32.3 Cholesterol/HDL Ratio 2.97 Blood Gas Puncture Site RT RADIAL Blood Gas Patient Temperature 98.6 Blood Gas HCO3 16 Blood Gas Base Excess -7.1 Blood Gas Oxygen Saturation 96 Arterial Blood pH 7.43 Arterial Blood Partial 25 Pressure CO2 Arterial Blood Partial 144 Pressure O2 Arterial Blood Oxygen Content 14.5 Arterial Blood 0.2 Carboxyhemoglobin Arterial Blood Methemoglobin 1.0 Blood Gas Hemoglobin 10.6 Oxygen Delivery Device VENTILATOR Blood Gas Ventilator Setting A/C14/450/PEEP5 Blood Gas Inspired Oxygen 40 Neutrophils (%) (Auto) 91.2 Lymphocytes (%) (Auto) 6.3 Monocytes (%) (Auto) 2.3 Eosinophils (%) (Auto) 0.0 Basophils (%) (Auto) 0.2 Neutrophils # (Auto) 16.1 Lymphocytes # (Auto) 1.1 Monocytes # (Auto) 0.4 Eosinophils # (Auto) 0.0 Basophils # (Auto) 0.0 CBC Comment DIFF FINAL Differential Comment Prothrombin Time 14.5 Prothromb Time International 1.3 Ratio Activated Partial 31.4 Thromboplast Time Date/Time Procedure Status Source Growth 10/17/16 10:36 Urine Culture Received Urine Catheterized Urine Pending 10/17/16 10:36 Legionella Antigen - Final Complete Urine Catheterized Urine PRESUMPTIVE NEGATIVE FOR LEGIONELLA P... 10/17/16 10:36 Streptococcus pneumoniae Antigen (M - Final Complete Urine Catheterized Urine PRESUMPTIVE NEGATIVE FOR STREPTOCOCCU... 10/17/16 04:50 Gram Stain Received Sputum Endotracheal Pending 10/17/16 04:50 Sputum Culture Received Sputum Endotracheal Pending 10/16/16 19:10 Gram Stain - Final Resulted Sputum Endotracheal 10/16/16 19:10 Sputum Culture Resulted Sputum Endotracheal Pending 10/16/16 16:50 Aerobic Blood Culture - Preliminary Resulted Blood Peripheral NO GROWTH IN 1 DAY 10/16/16 16:50 Anaerobic Blood Culture - Preliminary Resulted Blood Peripheral NO GROWTH IN 1 DAY 10/16/16 16:46 Influenza Types A,B Antigen ([place]) - Final Complete Nasal Aspirate NEGATIVE FOR FLU A AND B ANTIGEN.... Result Diagram: 10/17/16 1131 10/17/16 0442 Imaging Last Impressions Head CT 10/16/16 1611 Signed Impressions: Service Date/Time: Sunday, October 16, 2016 17:11 - CONCLUSION: 1. A 1.1 cm area of diminished attenuation in the left side of the cerebellar vermis with extensive diminished density in the sharon extending up into the cerebral peduncles and the right thalamic nuclei. An infarct in these regions would be presumably incompatible with life and therefore, I'm concerned that these may represent metastatic deposits. MRI of the brain with and without gadolinium is recommended for further characterization. 2. Mild sinusitis in the left sphenoid. 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 Venkatesh Peña Jr., MD Brain MRI 10/16/16 0000 Signed Impressions: Service Date/Time: Monday, October 17, 2016 00:42 - CONCLUSION: 1. 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 2. See the MRA report separately. Venkatesh Peña Jr., MD Assessment and Plan Problem List: (1) Acute renal failure Plan: Likely due to recent CVA and dehydration continue to hydrate at 125 cc an hour of normal saline we will continue to monitor output and follow BMP She has massive stroke and family is coming in with possible withdrawal from life support plan (2) Acute ischemic multifocal posterior circulation stroke Plan: Massive stroke involving right middle cerebral artery and posterior cerebral arteries (3) Respiratory failure Plan: Continue supportive care (4) Coma Plan: Due to CVA (5) Atrial fibrillation Problem Qualifiers (1) Acute ischemic multifocal posterior circulation stroke: Qualified Code: I63.539 - Acute ischemic multifocal posterior circulation stroke, unspecified laterality (2) Respiratory failure: (3) Coma: (4) Atrial fibrillation: Qualified Code: I48.91 - Atrial fibrillation, unspecified type Ele Gamino MD Oct 17, 2016 12:41 Ele Gamino MD Oct 17, 2016 12:41
[2016-10-17 12:51] LABS: CALCIUM-PROTEIN CORRECTED 7.9 MG/DL (8.5-10.1); CKMB 5.3 NG/ML (0.5-3.6)
--- NOTE | 2016-10-17 13:00 | RADRPT ---
EXAM DATE/TIME: 10/17/2016 10:35 [facility] COMPARISON: No previous studies available for comparison. INDICATIONS : Acute renal failure. MEDICAL HISTORY : Arthritis. Hypercholesterolemia. Hypertension. Diabetes. SURGICAL HISTORY : Tonsillectomy. Hysterectomy. Back surgery. ENCOUNTER: Initial ACUITY: 1 day PAIN SCORE: Nonresponsive. LOCATION: Bilateral flank MEASUREMENTS: RIGHT KIDNEY: 10.8 x 6.1 x 5.4 cm LEFT KIDNEY: 10.1 x 4.4 x 5.3 cm FINDINGS: RIGHT KIDNEY: Renal cortex is normal in thickness. The echotexture appears mildly increased. No hydronephrosis, st one, or mass. LEFT KIDNEY: Renal cortex is normal in thickness. The echotexture appears mildly increased. No hydronephrosis, st one, or mass. BLADDER: There was a Barnard catheter within the bladder. CONCLUSION: 1. No findings to indicate renal obstruction. 2. Increased echotexture of the renal cortex suggesting underlying medical renal disease. Jaret Carranza MD on October 17, 2016 at 12:57 Board Certified Radiologist. This report was verified electronically.
[2016-10-17] MEDS ORDERED: CALCIUM GLUCONATE INJ 1 GM in SODIUM CHLORIDE 0.9% INJ 100 ML IV ONE (15:00)
[2016-10-17] MEDS ORDERED: POTASSIUM PHOSPHATE INJ 15 MMOL in SODIUM CHLORIDE 0.9% INJ 150 ML IV ONE (15:00)
[2016-10-17] MEDS: AZTREONAM 1,000 MG/NS 100 ML IV SCH ×2 (15:17)
--- NOTE | 2016-10-17 16:48 | EKG ---
Date Performed: 10/16/2016 Time Performed: 15:57:52 PTAGE: 76 years EKG: Probable atrial fibrillation with uncontrolled ventricular response. Left axis deviation Le ft bundle branch block Atrial fibrillation is new Compared to previous tracing Abnormal ECG NO PREVIOUS TRACING DOCTOR: Parker Mckeon Interpretating Date/Time 10/17/2016 16:46:28
--- NOTE | 2016-10-17 16:50 | EKG ---
Date Performed: 10/16/2016 Time Performed: 17:36:26 PTAGE: 76 years EKG: Atrial fibrillation. Left axis deviation Left bundle branch block Ventricular rate is swathi r controlled Compared to previous tracing Abnormal ECG PREVIOUS TRACING : 10/16/2016 15.57 DOCTOR: Parker Mckeon Interpretating Date/Time 10/17/2016 16:48:34
[2016-10-17] MEDS ORDERED: AZITHROMYCIN INJ 500 MG in SODIUM CHLOR 0.9% 250 ML INJ 250 ML IV SCH (19:00)
[2016-10-17] MEDS: MORPHINE SULFATE 4 MG/ML INJ IV PRN ×2 (19:21→21:37)
[2016-10-17] MEDS: LORazepam 2 MG/ML VIAL IV PRN ×2 (19:45→21:37)
--- NOTE | 2016-10-17 20:02 | EC ---
Study Study Date:10/17/2016 STUDY CONCLUSIONS SUMMARY - Left ventricle: The cavity size was mildly dilated. Wall thickness was normal. Systolic function was moderately reduced. The estimated ejection fraction was 35%. Wall motion was normal; there were no regional wall motion abnormalities. - Mitral valve: Mild to moderate regurgitation. - Left atrium: The atrium was dilated. - Right ventricle: The cavity size was mildly dilated. Wall thickness was normal. - Right atrium: The atrium was dilated. - Tricuspid valve: Mild-moderate regurgitation. - Pulmonary arteries: Systolic pressure was moderately to severely increased. PA peak pressure: 74mm Hg (S). If LV function is below 40, please consider prescribing an ACEI or ARB or document rationale for non-use. PROCEDURE DATA STUDY STATUS: Elective. Procedure: Transthoracic echocardiography. Image quality was good. Scanning was performed from the parasternal, apical, and subcostal acoustic windows. Study completion: The patient tolerated the procedure well. Transthoracic echocardiography. M-mode, complete 2D, complete spectral Doppler, and color Doppler. Weight: Weight: 161.7lb. Patient status: Inpatient. CARDIAC ANATOMY LEFT VENTRICLE: The cavity size was mildly dilated. Wall thickness was normal. Systolic function was moderately reduced. The estimated ejection fraction was 35%. Wall motion was normal; there were no regional wall motion abnormalities. AORTIC VALVE: Trileaflet; normal thickness leaflets. Doppler: Transvalvular velocity was within the normal range. There was no stenosis. No regurgitation. Valve area: 0.94cm^2(VTI). Valve area: 1.49cm^2 (Vmax). Mean gradient: 3mm Hg (S). AORTA: Aortic root: The aortic root was normal in size. MITRAL VALVE: Structurally normal valve. Doppler: Transvalvular velocity was within the normal range. There was no evidence for stenosis. Mild to moderate regurgitation. Peak gradient: 2mm Hg (D). LEFT ATRIUM: The atrium was dilated. RIGHT VENTRICLE: The cavity size was mildly dilated. Wall thickness was normal. PULMONIC VALVE: Doppler: Transvalvular velocity was within the normal range. There was no evidence for stenosis. No regurgitation. TRICUSPID VALVE: Structurally normal valve. Doppler: Transvalvular velocity was within the normal range. Mild-moderate regurgitation. PULMONARY ARTERY: The main pulmonary artery was normal-sized. Systolic pressure was moderately to severely increased. RIGHT ATRIUM: The atrium was dilated. PERICARDIUM: There was no pericardial effusion. SYSTEMIC VEINS: Inferior vena cava: The vessel was normal in size. Patient weight: 161.7lb _Ejection fraction:_ 65-75% _Fractional shortening:_ 32% up to 5Kg 5-11.5Kg 11.6-22.9Kg 23-45Kg 45-57Kg Aortic Root 7-13 <17 13-22 17-27 17-27 LA diam 6-13 <23 24-38 33-47 37-40 RVID 10-17 7-15 7-15 7-18 8-17 LVIDd 12-22 <32 24-38 33-47 37-40 LVPW 2-4 3-6 5-7 6-8 7-8 IVS 2-4 3-6 5-7 6-8 7-8 BASIC MEASUREMENTS ADULT NORMAL Left ventricle LV internal dimension, ED, chordal level, *52.4 mm 43-52 PLAX LV internal dimension, ES, chordal level, *44.6 mm 23-38 PLAX Fractional shortening, chordal level, PLAX *15 % >29 LV posterior wall thickness, ED 11.1 mm IVS/LVPW ratio, ED 1.01 <1.3 Ventricular septum Septal thickness, ED 11.2 mm Aortic valve Leaflet separation 18 mm 15-26 Aorta Root diameter, ED 30 mm Left atrium Anterior-posterior dimension 38 mm BASIC MEASUREMENTS ADULT NORMAL Aortic valve Leaflet separation 18 mm 15-26 DOPPLER MEASUREMENTS ADULT NORMAL Main pulmonary artery Pressure, S *74 mm Hg =30 Aortic valve Peak velocity, S 118 cm/s Mean velocity, S 77.7 cm/s VTI, S 19.6 cm Mean gradient, S 3 mm Hg Valve area, VTI 0.94 cm^2 Valve area, Vmax 1.49 cm^2 Mitral valve Peak E-wave velocity 74.8 cm/s Deceleration time *90 ms 150-230 Peak gradient, D 2 mm Hg Tricuspid valve Regurgitant peak velocity 404 cm/s Peak RV-RA gradient, S 65 mm Hg Maximal regurgitant velocity 404 cm/s Systemic veins Estimated CVP 10 mm Hg Right ventricle RV pressure, S *75 mm Hg <30 Pulmonic valve Peak velocity, S 57.6 cm/s LEGEND: Mean values are shown as u=mean value. Asterisk (*) barragan values outside specified normal range. Amended Eboni Lea [id number]
--- NOTE | 2016-10-17 23:00 | MG ---
cc: ALEX THOMAS MD Lab No: [id number] Date: 10/17/16 Age: 76 Sex: F Race: 1940 A 76 year old female history of coma state. Generalized delta activity 1-3 Hz, 20-40 microvolts with occasional theta activity. Asymmetric right hemispheric slowing. No driving with photic stimulation. Single lead EKG showing tachycardia with some irregularity. INTERPRETATION Moderate encephalopathy. Clinical correlation. MD CONY Morin/ /10:49 PM /10:56 PM
[2016-10-18] VITALS (19 sets, daily range): BP systolic 104–150; BP diastolic 56–84; PULSE 101–142; RESP 21–26; TEMP 99.4–102.3; O2SAT 92–100
[2016-10-18] MEDS: AZTREONAM 1,000 MG/NS 100 ML IV SCH ×8 (00:40→23:04)
[2016-10-18] MEDS: HEPARIN SODIUM - SQ 10,000 UNITS/ML VIAL SQ SCH ×2 (00:40→13:03)
[2016-10-18] MEDS: SODIUM CHLOR 0.9% 1000 ML INJ 1,000 ML IV SCH ×2 (00:40→08:31)
[2016-10-18] MEDS: INSULIN NovoLIN REGULAR SUPPLEMENTAL SCALE SQ SCH ×4 (03:00→20:11)
[2016-10-18] MEDS: RESP: ALBUTEROL 2.5 MG/IPRATROPIUM 0.5 MG NEB (SCH) NEB ×4 (03:50→19:43)
[2016-10-18] MEDS: CHLORHEXIDINE GLUCONATE 2 % 1 PACK (2 CLOTHS) TOP SCH (04:00)
[2016-10-18 04:17] LABS: BICARBONATE 18.8 MEQ/L (21.0-32.0); CALCIUM-PROTEIN CORRECTED 8.1 MG/DL (8.5-10.1); POTASSIUM 4.1 MEQ/L (3.5-5.1); TOTAL BILIRUBIN ADULT 0.5 MG/DL (0.2-1.0)
--- NOTE | 2016-10-18 04:29 | RADRPT ---
EXAM DATE/TIME: 10/18/2016 03:23 [facility] COMPARISON: CHEST SINGLE AP, October 16, 2016, 16:20. INDICATIONS : Shortness of breath, possible pulmonary disease. MEDICAL HISTORY : Arthritis. Hypercholesterolemia. Hypertension. Diabetes SURGICAL HISTORY : Tonsillectomy. Hysterectomy. ENCOUNTER: Subsequent ACUITY: 2 days PAIN SCORE: Non-responsive. LOCATION: Bilateral chest FINDINGS: A single portable frontal view of the chest shows development of a new right midlung infiltrate. Left lung infiltrate is more pronounced from the prior study. No effusions. Heart is mildly enlarged but stable. Tip of the endotracheal tube 1 cm cephalad to the trev. Nasogastric tube coiled within the fundus of the stomach. CONCLUSION: Worsening left lung infiltrate with new right lung infiltrate. Venkatesh Peña Jr., MD on October 18, 2016 at 4:26 Board Certified Radiologist. This report was verified electronically.
[2016-10-18 04:58] LABS: AUTOMATED NEUTROPHIL # 17.5 TH/MM3 (1.8-7.7); BASOPHIL # 0.1 TH/MM3 (0-0.2); BASOPHIL % 0.3 % (0.0-2.0); EOSINOPHIL # 0.1 TH/MM3 (0-0.4); EOSINOPHIL % 0.5 % (0.0-4.0); HEMATOCRIT 35.6 % (35.0-46.0); HEMO FLAGS DIFF FINAL; LYMPH % 8.5 % (9.0-44.0); LYMPHOCYTE # 1.7 TH/MM3 (1.0-4.8); MEAN CELL VOLUME 92.1 FL (80.0-100.0); MEAN CORPUSCULAR HEMOGLOBIN 28.2 PG (27.0-34.0); MEAN CORPUSCULAR HGB CONC 30.6 % (32.0-36.0); MONO % 4.6 % (0.0-8.0); NEUT % 86.1 % (16.0-70.0); PLATELET COUNT 239 TH/MM3 (150-450); RED BLOOD COUNT 3.86 MIL/MM3 (4.00-5.30); RED CELL DISTRIBUTION WIDTH 16.8 % (11.6-17.2); WHITE BLOOD COUNT 20.3 TH/MM3 (4.0-11.0)
[2016-10-18] MEDS ORDERED: Vancomycin Consult Pharmacy 1 EA OTHER SCH (08:30)
[2016-10-18] MEDS ORDERED: VANCOMYCIN INJ 1,000 MG in SODIUM CHLOR 0.9% 250 ML INJ 250 ML IV ONE (08:30)
[2016-10-18] MEDS: SODIUM CHLORIDE 0.9% FLUSH 10 ML FLUSH SCH ×2 (08:35→20:10)
--- NOTE | 2016-10-18 08:35 | HHI.CCPN ---
Subjective Remarks/Hospital Course 76-year-old female was found unresponsive in her home. Neighbors had noted that they had not seen her for 2-3 days. Paramedics found her unresponsive in respiratory distress. She does have a history of diabetes and was unresponsive once because of hypoglycemia. 10/17 Patient is intubated unresponsive on no sedation. Afebrile. MRI brain showed multifocal nonhemorrhagic acute infarctions involving the right MCA territory as well as the thalami, sharon, cerebral peduncles, and cerebellum. MRA nain showed occlusion of the right carotid artery, right posterior cerebral artery, and left middle cerebral artery. 10/18 Patient remains intubated unresponsive on no sedation. T: 102.6 last night. In Afib with RVR Objective Vital Signs Date Time Temp Pulse Resp B/P Pulse Ox O2 Delivery O2 Flow Rate FiO2 10/18/16 07:48 100 40 10/18/16 06:00 119 10/18/16 04:00 100.7 26 132/69 10/16/16 20:20 Ventilator 10/16/16 16:15 15 Intake and Output 10/17/16 10/17/16 10/18/16 08:00 16:00 00:00 Intake Total 2549 ml 2064 ml 1860 ml Output Total 800 ml 700 ml 475 ml Balance 1749 ml 1364 ml 1385 ml Result Diagram: 10/18/16 0345 10/18/16 0345 Other Results Laboratory Tests Test 10/17/16 10/17/16 10/17/16 10/17/16 10:35 11:31 17:45 22:55 Blood Gas Puncture Site RT RADIAL Blood Gas Patient Temperature 98.6 Blood Gas HCO3 16 mmol/L Blood Gas Base Excess -7.1 mmol/L Blood Gas Oxygen Saturation 96 % Arterial Blood pH 7.43 Arterial Blood Partial 25 mmHg Pressure CO2 Arterial Blood Partial 144 mmHg Pressure O2 Arterial Blood Oxygen Content 14.5 Vol % Arterial Blood 0.2 % Carboxyhemoglobin Arterial Blood Methemoglobin 1.0 % Blood Gas Hemoglobin 10.6 G/DL Oxygen Delivery Device VENTILATOR Blood Gas Ventilator Setting A/C14/450/PEEP5 Blood Gas Inspired Oxygen 40 % White Blood Count 17.6 TH/MM3 Red Blood Count 3.70 MIL/MM3 Hemoglobin 10.5 GM/DL Hematocrit 32.0 % Mean Corpuscular Volume 86.5 FL Mean Corpuscular Hemoglobin 28.4 PG Mean Corpuscular Hemoglobin 32.9 % Concent Red Cell Distribution Width 15.6 % Platelet Count 205 TH/MM3 Mean Platelet Volume 8.4 FL Neutrophils (%) (Auto) 91.2 % Lymphocytes (%) (Auto) 6.3 % Monocytes (%) (Auto) 2.3 % Eosinophils (%) (Auto) 0.0 % Basophils (%) (Auto) 0.2 % Neutrophils # (Auto) 16.1 TH/MM3 Lymphocytes # (Auto) 1.1 TH/MM3 Monocytes # (Auto) 0.4 TH/MM3 Eosinophils # (Auto) 0.0 TH/MM3 Basophils # (Auto) 0.0 TH/MM3 CBC Comment DIFF FINAL Differential Comment Prothrombin Time 14.5 SEC Prothromb Time International 1.3 RATIO Ratio Activated Partial 31.4 SEC Thromboplast Time Sodium Level 147 MEQ/L Potassium Level 3.4 MEQ/L Chloride Level 115 MEQ/L Carbon Dioxide Level 22.4 MEQ/L Anion Gap 10 MEQ/L Blood Urea Nitrogen 46 MG/DL Creatinine 2.15 MG/DL Estimat Glomerular Filtration 22 ML/MIN Rate Random Glucose 170 MG/DL Calcium Level 7.1 MG/DL Protein Corrected Calcium 7.9 MG/DL Phosphorus Level 2.3 MG/DL Magnesium Level 1.4 MG/DL Total Creatine Kinase 192 U/L Creatine Kinase MB 5.3 NG/ML Troponin I 5.48 NG/ML 5.59 NG/ML 5.89 NG/ML Total Protein 5.6 GM/DL Test 10/18/16 03:45 White Blood Count 20.3 TH/MM3 Red Blood Count 3.86 MIL/MM3 Hemoglobin 10.9 GM/DL Hematocrit 35.6 % Mean Corpuscular Volume 92.1 FL Mean Corpuscular Hemoglobin 28.2 PG Mean Corpuscular Hemoglobin 30.6 % Concent Red Cell Distribution Width 16.8 % Platelet Count 239 TH/MM3 Mean Platelet Volume 9.5 FL Neutrophils (%) (Auto) 86.1 % Lymphocytes (%) (Auto) 8.5 % Monocytes (%) (Auto) 4.6 % Eosinophils (%) (Auto) 0.5 % Basophils (%) (Auto) 0.3 % Neutrophils # (Auto) 17.5 TH/MM3 Lymphocytes # (Auto) 1.7 TH/MM3 Monocytes # (Auto) 0.9 TH/MM3 Eosinophils # (Auto) 0.1 TH/MM3 Basophils # (Auto) 0.1 TH/MM3 CBC Comment DIFF FINAL Differential Comment Sodium Level 147 MEQ/L Potassium Level 4.1 MEQ/L Chloride Level 116 MEQ/L Carbon Dioxide Level 18.8 MEQ/L Anion Gap 12 MEQ/L Blood Urea Nitrogen 57 MG/DL Creatinine 2.15 MG/DL Estimat Glomerular Filtration 22 ML/MIN Rate Random Glucose 180 MG/DL Lactic Acid Level 2.7 mmol/L Calcium Level 7.4 MG/DL Protein Corrected Calcium 8.1 MG/DL Total Bilirubin 0.5 MG/DL Aspartate Amino Transf 194 U/L (AST/SGOT) Alanine Aminotransferase 128 U/L (ALT/SGPT) Alkaline Phosphatase 90 U/L Total Protein 5.8 GM/DL Albumin 2.0 GM/DL Imaging Last Impressions Chest X-Ray 10/18/16 0000 Signed Impressions: Service Date/Time: Tuesday, October 18, 2016 03:23 - CONCLUSION: Worsening left lung infiltrate with new right lung infiltrate. Venkatesh Peña Jr., MD Renal Ultrasound 10/17/16 0000 Signed Impressions: Service Date/Time: Monday, October 17, 2016 10:35 - CONCLUSION: 1. No findings to indicate renal obstruction. 2. Increased echotexture of the renal cortex suggesting underlying medical renal disease. Jaret Carranza MD Head CT 10/16/16 1611 Signed Impressions: Service Date/Time: Sunday, October 16, 2016 17:11 - CONCLUSION: 1. A 1.1 cm area of diminished attenuation in the left side of the cerebellar vermis with extensive diminished density in the sharon extending up into the cerebral peduncles and the right thalamic nuclei. An infarct in these regions would be presumably incompatible with life and therefore, I'm concerned that these may represent metastatic deposits. MRI of the brain with and without gadolinium is recommended for further characterization. 2. Mild sinusitis in the left sphenoid. 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 Venkatesh Peña Jr., MD Brain MRI 10/16/16 0000 Signed Impressions: Service Date/Time: Saturday, October 17, 2016 00:42 - CONCLUSION: 1. 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 2. See the MRA report separately. Venkatesh Peña Jr., MD Objective Remarks GENERAL: Patient is lying in bed intubated and unresponsive. SKIN: Warm and dry. HEAD: Normocephalic. EYES: No scleral icterus. No injection or drainage. NECK: Supple, trachea midline. No JVD or lymphadenopathy. CARDIOVASCULAR: Tachycardic, irregular without murmurs, gallops, or rubs. RESPIRATORY: Breath sounds equal bilaterally. Few coarse BS GASTROINTESTINAL: Abdomen soft, non-tender, nondistended. MUSCULOSKELETAL: No cyanosis, or edema. Neuro: Unresponsive, intubated does not follow commands. A/P Problem List: (1) Cerebrovascular accident ICD Code: I63.9 Status: Acute (2) Pneumonia ICD Code: J18.9 Status: Acute (3) Respiratory failure ICD Code: J96.90 Status: Acute (4) Coma ICD Code: R40.20 Status: Acute Assessment and Plan VDRF Encephalopathy Multiple khan including brain stem. Afib RVR Elevated trop/NSTEMI Cardiomyopathy ARF Coagulopathy Elevated LFT;s Hypernatremia Leukocytosis Left sided Pneumonia Plan Neuro: On no sedation unresponsive. Monitor neuro status and avoid sedatives. MRA brain: Occlusion of the right carotid artery, right posterior cerebral artery, and left middle cerebral artery. MRI brain: showed multifocal nonhemorrhagic acute infarctions involving the right MCA territory as well as the thalami, sharon, cerebral peduncles, and cerebellum Neuro consulted: Dr. Arnold, Continue with ASA discussed with Neuro. 10/17 EEG : Moderate encephalopathy Pulm: Continue with vent support keep sat >92% Bronchodilators. Check ABG SBT daily as mundo her mental status will preclude her from extubation CV: Place on Lopressor 25mg Q12 for rate control. Monitor HR and BP keep MAP> 65mm Hg Cards is following- Dr. Lea. On ASA 325mg daily. Hold Statins due to elevated LFT's Echo showed EF 35%, severe pulm HTN with PAP 74mmHg. Due to multiple strokes including brainstem will not start patient on anticoagulation other than prophylaxis due to high risk of hemorrhagic conversion : Monitor renal function, I/O's, avoid nephrotoxins. Cr: 2.15 today with UO: 1425 ml. Renal US: No renal obstruction, nephro is following- Dr. Mcarthur IVF DW1/2NS@75ml/hr, diurese with Bumex 1mg x[address] Place on Free H20 250ml Q12 GI:On TF- Nepro with goal rate 40ml/hr, on Pepcid 10mg IV Q12 Monitor LFT's , check US Liver ID: Continue with abx ( Azithromycin, Aztreonam) Add Vancomycin, monitor for signs of infections ( Fever, WBC). ID eval. Follow up on sputum and urine cxs. Nasal washing negative for Influenza. strep pneumonia and Legionella urinary Ag negative. 10/16 BC 07/29 bottles: GPC, recheck BC x 2 sets, check C-diff PCR Endo: SSI with accucheks for glycemic control Heme: Monitor CBC and Coags GI prophylaxis- On Pepcid 10mg IV Q12 DVT prophylaxis- SCD, Heparin SQ Palliative care eval to asses with goals of care. Prognosis guarded. Patient is critically ill with resp failure, encephalopathy, multiple CVA's including brain stem, NSTEMI, renal failure and pneumonia. CCT 30 mins Problem Qualifiers (1) Respiratory failure: (2) Coma: Katelyn Perkins MD Oct 18, 2016 08:34
[2016-10-18] MEDS: BENEPROTEIN POWDER 1 PACK G-TUBE SCH ×3 (08:36→18:00)
[2016-10-18] MEDS: DOCUSATE SODIUM 100 MG/10 ML UDC G-TUBE SCH ×2 (08:36→20:10)
[2016-10-18] MEDS: ARTIFICIAL TEARS OPTH SOLN 15 ML BTL EACH EYE SCH ×3 (08:36→18:00)
[2016-10-18] MEDS: ASPIRIN 325 MG TAB PO SCH (08:38)
[2016-10-18] MEDS: FAMOTIDINE 20 MG/2 ML VIAL IV PUSH SCH ×2 (08:38→20:10)
[2016-10-18] MEDS: MORPHINE SULFATE 4 MG/ML INJ IV PRN ×4 (08:40→22:51)
[2016-10-18] MEDS: LORazepam 2 MG/ML VIAL IV PRN ×2 (08:41→12:15)
[2016-10-18] MEDS: FREE WATER G-TUBE SCH ×2 (09:00→20:11)
[2016-10-18] MEDS ORDERED: BUMETANIDE INJ 1 MG/4 ML VIAL IV PUSH ONE (09:00)
[2016-10-18 09:32] LABS: BLOOD GAS BASE EXCESS -8.7 mmol/L (-2-2); BLOOD GAS HCO3 16 mmol/L (22-26); BLOOD GAS METHEMOGLOBIN 0.9 % (0-2); BLOOD GAS O2 HGB SATURATION 95 % (90-100); BLOOD GAS OXYGEN CONTENT 13.6 Vol % (12.0-20.0); BLOOD GAS PCO2 31 mmHg (38-42); BLOOD GAS PO2 115 mmHg (61-120); BLOOD GAS TOTAL HGB 10.1 G/DL (12.0-16.0); CRITICAL VALUE YES; OXYGEN DEVICE VENTILATOR
[2016-10-18 09:33] LABS: DRAW SITE RT RADIAL; FIO2 40 %; NUMBER OF ARTERIAL PUNCTURES 1; STAT NO; TEMP CORR TO 98.6; ULNAR PULSE PRESENT; VENT SETTINGS 400/AC12/PEEP5
[2016-10-18] MEDS: METOPROLOL TARTRATE 25 MG TAB PO SCH ×2 (09:33→20:10)
--- NOTE | 2016-10-18 09:58 | HHI.PR ---
Review/Management Diagnosis/Plan: (1) Acute ischemic multifocal posterior circulation stroke Plan: multifocal infarcts; midbrain and thalamic bilateral strokes multi-focal vessel occlusion recs: severe brainstem strokes. very high probability of /or severe neurological disability; in addition has renal failure and elevated trops aspirin/hep dvt prophylaxis spoke with daughter on the phone this am. she is waiting for brothers. d/w dx/ prognosis d/w rn (2) Coma (3) Atrial fibrillation (4) Respiratory failure Subjective Subjective Comments No acute events reported Active Medications Current Medications Medications (Trade) Dose Ordered Sig/Moris Route Start Time Stop Time Status Last Admin (NS 1000 ml Inj) 1,000 ml @ 75 mls/hr [id number] IV 10/17/16 00:31 10/18/16 08:31 (NS Flush) 2 ml UNSCH PRN .XX 10/17/16 00:45 (NS Flush) 2 ml BID .XX 10/17/16 09:00 10/18/16 08:35 (Tylenol) 650 mg Q6H PRN PO 10/17/16 00:45 10/17/16 20:13 (Morphine Inj) 2 mg Q2H PRN IV 10/17/16 00:45 10/18/16 08:40 (Pepcid Inj) 10 mg Q12HR IV PUSH 10/17/16 09:00 10/18/16 08:38 (Ativan Inj) 1 mg Q1H PRN IV 10/17/16 00:45 10/18/16 08:41 (Tears Naturale Opth Soln) 1 drop TID EACH EYE 10/17/16 09:00 (Zofran Inj) 4 mg Q6H PRN IV 10/17/16 00:45 (Reglan Inj) 5 mg Q6H PRN IV 10/17/16 00:45 (Colace Liq) 100 mg Q12HR G-TUBE 10/17/16 09:00 10/17/16 07:58 (Heparin Inj) 5,000 units Q12H SQ 10/17/16 01:00 10/18/16 00:40 Miscellaneous Information 1 Q361D XX 10/17/16 00:45 (Chlorhexidine 2% Cloth) 3 pack Taper DAILY@04 TOP 10/17/16 04:00 10/13/17 03:59 10/18/16 04:00 Chlorhexidine Gluconate 3 pack 3 pack UNSCH PRN TOP 10/17/16 00:45 (Zithromax Inj/ NS 250 ml Inj) 250 ml @ 250 mls/hr Q24H IV 10/17/16 19:00 10/17/16 17:11 (Beneprotein Powder) 2 pack TID G-TUBE 10/17/16 09:00 10/18/16 08:36 (D50w (Vial) Inj) 25 ml UNSCH PRN IV PUSH 10/17/16 09:00 (Glucagon Inj) 1 mg UNSCH PRN OTHER 10/17/16 09:00 (NovoLIN R SUPPLEMENTAL SCALE) 1 Q6H SQ 10/17/16 09:00 10/18/16 08:41 Aspirin 325 mg 325 mg DAILY PO 10/17/16 10:15 10/18/16 08:38 Aztreonam 1000 mg/ Sodium Chloride 100 ml @ 200 mls/hr Q8H IV 10/17/16 16:00 10/18/16 08:32 (Vancomycin Consult Pharmacy) 0 ml @ 0 mls/hr UNSCH OTHER 10/18/16 08:30 (Lopressor) 25 mg Q12HR PO 10/18/16 09:00 10/18/16 09:33 Water 250 ml 250 ml Q12HR G-TUBE 10/18/16 09:00 10/18/16 09:00 (Vancomycin Inj/ NS 250 ml Inj) 262.5 ml @ 250 mls/hr ONCE ONCE IV 10/18/16 10:00 10/18/16 11:02 10/18/16 09:42 Allergies Allergies Coded Allergies Penicillin (Verified Allergy, Severe, HIVES, 10/16/16) Review of Systems All other ROS: Unable to obtain Exam I&O / VS 10/17/16 10/17/16 10/18/16 15:00 23:00 07:00 Intake Total 2064 ml 1860 ml 1274 ml Output Total 700 ml 475 ml 250 ml Balance 1364 ml 1385 ml 1024 ml Intake Oral 0 ml IV Total 1244 ml 1400 ml 980 ml Tube Feeding 700 ml 260 ml 294 ml Other 120 ml 200 ml Output Urine Total 700 ml 475 ml 250 ml # Bowel Movements 1 1 Vital Signs Date Time Temp Pulse Resp B/P Pulse Ox O2 Delivery O2 Flow Rate FiO2 10/18/16 09:10 24 3/26/17 08:00 99.4 110 24 128/71 100 10/18/16 08:00 110 10/18/16 07:48 100 40 10/18/16 06:00 119 10/18/16 04:00 126 10/18/16 04:00 100.7 126 26 132/69 98 10/18/16 04:00 40 10/18/16 03:50 98 40 10/18/16 02:00 116 10/18/16 00:00 40 10/18/16 00:00 102.3 125 24 104/75 99 10/18/16 00:00 125 10/17/16 23:31 100 40 10/17/16 22:00 125 10/17/16 20:48 100 40 10/17/16 20:00 102.6 152 30 157/76 98 10/17/16 20:00 40 10/17/16 20:00 152 10/17/16 18:00 116 10/17/16 17:42 99 40 10/17/16 16:00 100.1 99 27 150/77 98 10/17/16 16:00 99 10/17/16 16:00 40 10/17/16 14:34 98 40 10/17/16 14:00 92 10/17/16 13:39 98 40 10/17/16 12:00 92 10/17/16 12:00 99.4 92 24 187/80 99 10/17/16 11:15 100 40 10/17/16 10:00 78 Exam Comments intubated, no sedation. coma state, non-verbal, not following, ou 5mm fixed, eom impaired. +corneal reflex, extensor posture of both ue, +enid le babinski Objective Micro and Labs Laboratory Tests Test 10/17/16 10/17/16 10/17/16 10/17/16 10:35 11:31 17:45 22:55 Blood Gas Puncture Site RT RADIAL Blood Gas Patient Temperature 98.6 Blood Gas HCO3 16 Blood Gas Base Excess -7.1 Blood Gas Oxygen Saturation 96 Arterial Blood pH 7.43 Arterial Blood Partial 25 Pressure CO2 Arterial Blood Partial 144 Pressure O2 Arterial Blood Oxygen Content 14.5 Arterial Blood 0.2 Carboxyhemoglobin Arterial Blood Methemoglobin 1.0 Blood Gas Hemoglobin 10.6 Oxygen Delivery Device VENTILATOR Blood Gas Ventilator Setting A/C14/450/PEEP5 Blood Gas Inspired Oxygen 40 White Blood Count 17.6 Red Blood Count 3.70 Hemoglobin 10.5 Hematocrit 32.0 Mean Corpuscular Volume 86.5 Mean Corpuscular Hemoglobin 28.4 Mean Corpuscular Hemoglobin 32.9 Concent Red Cell Distribution Width 15.6 Platelet Count 205 Mean Platelet Volume 8.4 Neutrophils (%) (Auto) 91.2 Lymphocytes (%) (Auto) 6.3 Monocytes (%) (Auto) 2.3 Eosinophils (%) (Auto) 0.0 Basophils (%) (Auto) 0.2 Neutrophils # (Auto) 16.1 Lymphocytes # (Auto) 1.1 Monocytes # (Auto) 0.4 Eosinophils # (Auto) 0.0 Basophils # (Auto) 0.0 CBC Comment DIFF FINAL Differential Comment Prothrombin Time 14.5 Prothromb Time International 1.3 Ratio Activated Partial 31.4 Thromboplast Time Sodium Level 147 Potassium Level 3.4 Chloride Level 115 Carbon Dioxide Level 22.4 Anion Gap 10 Blood Urea Nitrogen 46 Creatinine 2.15 Estimat Glomerular Filtration 22 Rate Random Glucose 170 Calcium Level 7.1 Protein Corrected Calcium 7.9 Phosphorus Level 2.3 Magnesium Level 1.4 Total Creatine Kinase 192 Creatine Kinase MB 5.3 Troponin I 5.48 5.59 5.89 Total Protein 5.6 Test 10/18/16 10/18/16 03:45 09:27 White Blood Count 20.3 Red Blood Count 3.86 Hemoglobin 10.9 Hematocrit 35.6 Mean Corpuscular Volume 92.1 Mean Corpuscular Hemoglobin 28.2 Mean Corpuscular Hemoglobin 30.6 Concent Red Cell Distribution Width 16.8 Platelet Count 239 Mean Platelet Volume 9.5 Neutrophils (%) (Auto) 86.1 Lymphocytes (%) (Auto) 8.5 Monocytes (%) (Auto) 4.6 Eosinophils (%) (Auto) 0.5 Basophils (%) (Auto) 0.3 Neutrophils # (Auto) 17.5 Lymphocytes # (Auto) 1.7 Monocytes # (Auto) 0.9 Eosinophils # (Auto) 0.1 Basophils # (Auto) 0.1 CBC Comment DIFF FINAL Differential Comment Sodium Level 147 Potassium Level 4.1 Chloride Level 116 Carbon Dioxide Level 18.8 Anion Gap 12 Blood Urea Nitrogen 57 Creatinine 2.15 Estimat Glomerular Filtration 22 Rate Random Glucose 180 Lactic Acid Level 2.7 Calcium Level 7.4 Protein Corrected Calcium 8.1 Total Bilirubin 0.5 Aspartate Amino Transf 194 (AST/SGOT) Alanine Aminotransferase 128 (ALT/SGPT) Alkaline Phosphatase 90 Total Protein 5.8 Albumin 2.0 Blood Gas Puncture Site RT RADIAL Blood Gas Patient Temperature 98.6 Blood Gas HCO3 16 Blood Gas Base Excess -8.7 Blood Gas Oxygen Saturation 95 Arterial Blood pH 7.33 Arterial Blood Partial 31 Pressure CO2 Arterial Blood Partial 115 Pressure O2 Arterial Blood Oxygen Content 13.6 Arterial Blood 0.0 Carboxyhemoglobin Arterial Blood Methemoglobin 0.9 Blood Gas Hemoglobin 10.1 Oxygen Delivery Device VENTILATOR Blood Gas Ventilator Setting 400/AC12/PEEP5 Blood Gas Inspired Oxygen 40 Date/Time Procedure Status Source Growth 10/17/16 10:36 Urine Culture Received Urine Catheterized Urine Pending 10/17/16 10:36 Legionella Antigen - Final Complete Urine Catheterized Urine PRESUMPTIVE NEGATIVE FOR LEGIONELLA P... 10/17/16 10:36 Streptococcus pneumoniae Antigen (M - Final Complete Urine Catheterized Urine PRESUMPTIVE NEGATIVE FOR STREPTOCOCCU... 10/17/16 04:50 Gram Stain - Final Resulted Sputum Endotracheal 10/17/16 04:50 Sputum Culture Resulted Sputum Endotracheal Pending 10/16/16 16:50 Aerobic Blood Culture - Preliminary Resulted Blood Peripheral NO GROWTH IN 1 DAY 10/16/16 16:50 Anaerobic Blood Culture - Preliminary Resulted Blood Peripheral NO GROWTH IN 1 DAY 10/16/16 16:46 Influenza Types A,B Antigen ([place]) - Final Complete Nasal Aspirate NEGATIVE FOR FLU A AND B ANTIGEN.... Problem Qualifiers (1) Acute ischemic multifocal posterior circulation stroke: Qualified Code: I63.539 - Acute ischemic multifocal posterior circulation stroke, unspecified laterality (2) Coma: (3) Atrial fibrillation: Qualified Code: I48.91 - Atrial fibrillation, unspecified type (4) Respiratory failure: Sean Cardenas MD Oct 18, 2016 09:58
[2016-10-18] MEDS ORDERED: VANCOMYCIN INJ 1,250 MG in SODIUM CHLOR 0.9% 250 ML INJ 250 ML IV ONE (10:00)
[2016-10-18] MEDS ORDERED: SODIUM BICARBONATE 8.4% INJ 50 MEQ/50 ML SYR IV PUSH ONE (10:00)
--- NOTE | 2016-10-18 12:15 | HHI.NPPN ---
Subjective History of Present Illness 76 year old female with massive CVA brain stem and cerebral Objective Data Data 10/17/16 10/18/16 19:00 07:00 Intake Total 2064 ml 3134 ml Output Total 700 ml 725 ml Balance 1364 ml 2409 ml Intake Oral 0 ml IV Total 1244 ml 2380 ml Tube Feeding 700 ml 554 ml Other 120 ml 200 ml Output Urine Total 700 ml 725 ml # Bowel Movements 1 1 Vital Signs Date Time Temp Pulse Resp B/P Pulse Ox O2 Delivery O2 Flow Rate FiO2 10/18/16 10:10 92 40 10/18/16 10:00 118 10/18/16 09:10 24 10/18/16 08:00 99.4 110 24 128/71 100 10/18/16 08:00 40 10/18/16 08:00 110 10/18/16 07:48 100 40 10/18/16 06:00 119 10/18/16 04:00 126 10/18/16 04:00 100.7 126 26 132/69 98 10/18/16 04:00 40 10/18/16 03:50 98 40 10/18/16 02:00 116 10/18/16 00:00 40 10/18/16 00:00 102.3 125 24 104/75 99 10/18/16 00:00 125 10/17/16 23:31 100 40 10/17/16 22:00 125 10/17/16 20:48 100 40 10/17/16 20:00 102.6 152 30 157/76 98 10/17/16 20:00 40 10/17/16 20:00 152 10/17/16 18:00 116 10/17/16 17:42 99 40 10/17/16 16:00 100.1 99 27 150/77 98 10/17/16 16:00 99 10/17/16 16:00 40 10/17/16 14:34 98 40 10/17/16 14:00 92 10/17/16 13:39 98 40 -: 10/18/16 0345 10/18/16 0345 Microbiology 10/18/16 Aerobic Blood Culture, Received Pending 10/18/16 Anaerobic Blood Culture, Received Pending 10/18/16 Aerobic Blood Culture, Received Pending 10/18/16 Anaerobic Blood Culture, Received Pending Medication Review Current Medications Medications (Trade) Dose Ordered Sig/Moris Route Start Time Stop Time Status Last Admin (NS 1000 ml Inj) 1,000 ml @ 75 mls/hr [id number] IV 10/17/16 00:31 10/18/16 08:31 (NS Flush) 2 ml UNSCH PRN .XX 10/17/16 00:45 (NS Flush) 2 ml BID .XX 10/17/16 09:00 10/18/16 08:35 (Tylenol) 650 mg Q6H PRN PO 10/17/16 00:45 10/17/16 20:13 (Morphine Inj) 2 mg Q2H PRN IV 10/17/16 00:45 10/18/16 08:40 (Pepcid Inj) 10 mg Q12HR IV PUSH 10/17/16 09:00 10/18/16 08:38 (Ativan Inj) 1 mg Q1H PRN IV 10/17/16 00:45 10/18/16 08:41 (Tears Naturale Opth Soln) 1 drop TID EACH EYE 10/17/16 09:00 (Zofran Inj) 4 mg Q6H PRN IV 10/17/16 00:45 (Reglan Inj) 5 mg Q6H PRN IV 10/17/16 00:45 (Colace Liq) 100 mg Q12HR G-TUBE 10/17/16 09:00 10/17/16 07:58 (Heparin Inj) 5,000 units Q12H SQ 10/17/16 01:00 10/18/16 00:40 Miscellaneous Information 1 Q361D XX 10/17/16 00:45 (Chlorhexidine 2% Cloth) 3 pack Taper DAILY@04 TOP 10/17/16 04:00 10/13/17 03:59 10/18/16 04:00 Chlorhexidine Gluconate 3 pack 3 pack UNSCH PRN TOP 10/17/16 00:45 (Zithromax Inj/ NS 250 ml Inj) 250 ml @ 250 mls/hr Q24H IV 10/17/16 19:00 10/17/16 17:11 (Beneprotein Powder) 2 pack TID G-TUBE 10/17/16 09:00 10/18/16 08:36 (D50w (Vial) Inj) 25 ml UNSCH PRN IV PUSH 10/17/16 09:00 (Glucagon Inj) 1 mg UNSCH PRN OTHER 10/17/16 09:00 (NovoLIN R SUPPLEMENTAL SCALE) 1 Q6H SQ 10/17/16 09:00 10/18/16 08:41 Aspirin 325 mg 325 mg DAILY PO 10/17/16 10:15 10/18/16 08:38 Aztreonam 1000 mg/ Sodium Chloride 100 ml @ 200 mls/hr Q8H IV 10/17/16 16:00 10/18/16 08:32 (Vancomycin Consult Pharmacy) 0 ml @ 0 mls/hr UNSCH OTHER 10/18/16 08:30 (Lopressor) 25 mg Q12HR PO 10/18/16 09:00 10/18/16 09:33 (Free Water) 250 ml Q12HR G-TUBE 10/18/16 09:00 10/18/16 09:00 Physical Exam General Appearance: Well Developed Neck Neck Exam: Neck Supple Neck Remarks intubated Pulmonary Resp Exam: Clear Bilaterally Cardiology CV Exam: Arrhythmia Gastrointestinal/Abdomen GI Exam: Soft, Non-Tender, Bowel Sounds Present Extremeties Extremities Exam: Trace Edema Assessment/Plan Problem List: (1) Acute renal failure Plan: Likely due to recent CVA and dehydration continue to hydrate change to D5W 1/2 NS add bicarbonate She has massive stroke and family is coming in with possible withdrawal from life support plan (2) Acute ischemic multifocal posterior circulation stroke Plan: Massive stroke involving right middle cerebral artery and posterior cerebral arteries (3) Respiratory failure Plan: Continue supportive care (4) Coma Plan: Due to CVA (5) Atrial fibrillation (6) Pneumonia Plan: on rx (7) Cerebrovascular accident Problem Qualifiers (1) Acute ischemic multifocal posterior circulation stroke: Qualified Code: I63.539 - Acute ischemic multifocal posterior circulation stroke, unspecified laterality (2) Respiratory failure: (3) Coma: (4) Atrial fibrillation: Qualified Code: I48.91 - Atrial fibrillation, unspecified type Ele Gamino MD Oct 18, 2016 12:15
--- NOTE | 2016-10-18 12:55 | PD.ID.CON ---
History of Present Illness Service ID Consult Requested By Reason for Consult Evaluation and Mment of Sepsis in patient with recent stroke. Primary Care Physician Unknown Diagnoses: History of Present Illness is a 76 y/o CF who was found unresponsive in her home. Neighbors had noted that they had not seen her for 2-3 days and found newspapers outside her home. Paramedics found her unresponsive in respiratory distress. She does have a history of diabetes and was unresponsive once because of hypoglycemia. She underwent stroke evaluation and was found to have multiinfarct post cerebral circulation. Patient was s/b neurology and determined as not suitable candidate for TPA. Neurology has opined she is at high risk of and severe neurological deficit. Palliative care consult is ordered and pending at time of my evaluation. At time of my evaluation patient is in the ICU, intubated . Patient could have aspirated in the field prior to admission and now has worsening infiltrates and increasing WBC. Upon discussion with RN, patient is not on pressors, urine output is low, secretions are thick and yellow, no diarrhea. ID is consulted for evaluation and Mment of sepsis possible worsening pneumonia despite antibiotics. Below is summary of her imaging reflecting the severity of her infarcts. Last Impressions Chest X-Ray 10/18/16 0000 Signed Impressions: Service Date/Time: Tuesday, October 18, 2016 03:23 - CONCLUSION: Worsening left lung infiltrate with new right lung infiltrate. Venkatesh Peña Jr., MD Renal Ultrasound 10/17/16 0000 Signed Impressions: Service Date/Time: Monday, October 17, 2016 10:35 - CONCLUSION: 1. No findings to indicate renal obstruction. 2. Increased echotexture of the renal cortex suggesting underlying medical renal disease. Jaret Carranza MD Head CT 10/16/16 1611 Signed Impressions: Service Date/Time: Sunday, October 16, 2016 17:11 - CONCLUSION: 1. A 1.1 cm area of diminished attenuation in the left side of the cerebellar vermis with extensive diminished density in the sharon extending up into the cerebral peduncles and the right thalamic nuclei. An infarct in these regions would be presumably incompatible with life and therefore, I'm concerned that these may represent metastatic deposits. MRI of the brain with and without gadolinium is recommended for further characterization. 2. Mild sinusitis in the left sphenoid. 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 Venkatesh Peña Jr., MD Brain MRI 10/16/16 0000 Signed Impressions: Service Date/Time: Monday, October 17, 2016 00:42 - CONCLUSION: 1. 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 2. See the MRA report separately. Venkatesh Peña Jr., MD Review of Systems ROS Limitations: Altered Mental Status Past Family Social History Allergies: Coded Allergies: Penicillin (Verified Allergy, Severe, HIVES, 10/16/16) Past Medical History Hypertension Dyslipidemia Diabetes mellitus Past Surgical History Hysterectomy Tonsillectomy Reported Medications Reported Meds & Active Scripts Active Active Prescriptions or Reported Medications Unobtainable Active Ordered Medications Current Medications Medications (Trade) Dose Ordered Sig/Moris Route Start Time Stop Time Status Last Admin (NS Flush) 2 ml UNSCH PRN .XX 10/17/16 00:45 (NS Flush) 2 ml BID .XX 10/17/16 09:00 10/18/16 08:35 (Tylenol) 650 mg Q6H PRN PO 10/17/16 00:45 10/17/16 20:13 (Morphine Inj) 2 mg Q2H PRN IV 10/17/16 00:45 10/18/16 12:15 (Pepcid Inj) 10 mg Q12HR IV PUSH 10/17/16 09:00 10/18/16 08:38 (Ativan Inj) 1 mg Q1H PRN IV 10/17/16 00:45 10/18/16 12:15 (Tears Naturale Opth Soln) 1 drop TID EACH EYE 10/17/16 09:00 (Zofran Inj) 4 mg Q6H PRN IV 10/17/16 00:45 (Reglan Inj) 5 mg Q6H PRN IV 10/17/16 00:45 (Colace Liq) 100 mg Q12HR G-TUBE 10/17/16 09:00 10/17/16 07:58 (Heparin Inj) 5,000 units Q12H SQ 10/17/16 01:00 10/18/16 00:40 Miscellaneous Information 1 Q361D XX 10/17/16 00:45 (Chlorhexidine 2% Cloth) 3 pack Taper DAILY@04 TOP 10/17/16 04:00 10/13/17 03:59 10/18/16 04:00 Chlorhexidine Gluconate 3 pack 3 pack UNSCH PRN TOP 10/17/16 00:45 (Zithromax Inj/ NS 250 ml Inj) 250 ml @ 250 mls/hr Q24H IV 10/17/16 19:00 10/17/16 17:11 (Beneprotein Powder) 2 pack TID G-TUBE 10/17/16 09:00 10/18/16 08:36 (D50w (Vial) Inj) 25 ml UNSCH PRN IV PUSH 10/17/16 09:00 (Glucagon Inj) 1 mg UNSCH PRN OTHER 10/17/16 09:00 (NovoLIN R SUPPLEMENTAL SCALE) 1 Q6H SQ 10/17/16 09:00 10/18/16 08:41 Aspirin 325 mg 325 mg DAILY PO 10/17/16 10:15 10/18/16 08:38 Aztreonam 1000 mg/ Sodium Chloride 100 ml @ 200 mls/hr Q8H IV 10/17/16 16:00 10/18/16 08:32 (Vancomycin Consult Pharmacy) 0 ml @ 0 mls/hr UNSCH OTHER 10/18/16 08:30 (Lopressor) 25 mg Q12HR PO 10/18/16 09:00 10/18/16 09:33 Water 250 ml 250 ml Q12HR G-TUBE 10/18/16 09:00 10/18/16 09:00 (Sodium Bicarbonate 8.4% Inj/D5W-1/2 NS 1000 ml Inj) 1,050 ml @ 75 mls/hr Q14H IV 10/18/16 14:00 Family History could not be obtained. No family in room. Social History could not be obtained. Was an avid swimmer, lived alone and was independent in [facility]. Physical Exam Vital Signs Vital Signs Date Time Temp Pulse Resp B/P Pulse Ox O2 Delivery O2 Flow Rate FiO2 10/18/16 12:20 20 10/18/16 12:00 100.3 119 24 150/84 99 10/18/16 12:00 40 10/18/16 12:00 119 10/18/16 10:10 92 40 10/18/16 10:00 118 10/18/16 08:00 99.4 110 24 128/71 100 10/18/16 08:00 40 10/18/16 08:00 110 10/18/16 07:48 100 40 10/18/16 06:00 119 10/18/16 04:00 126 10/18/16 04:00 100.7 126 26 132/69 98 10/18/16 04:00 40 10/18/16 03:50 98 40 10/18/16 02:00 116 10/18/16 00:00 40 10/18/16 00:00 102.3 125 24 104/75 99 10/18/16 00:00 125 10/17/16 23:31 100 40 10/17/16 22:00 125 10/17/16 20:48 100 40 10/17/16 20:00 102.6 152 30 157/76 98 10/17/16 20:00 40 10/17/16 20:00 152 10/17/16 18:00 116 10/17/16 17:42 99 40 10/17/16 16:00 100.1 99 27 150/77 98 10/17/16 16:00 99 10/17/16 16:00 40 10/17/16 14:34 98 40 10/17/16 14:00 92 10/17/16 13:39 98 40 Physical Exam GENERAL: This is a well-nourished, well-developed patient, in no apparent distress. SKIN: No rashes, ecchymoses or lesions. Cool and dry. HEAD: Atraumatic. Normocephalic. No temporal or scalp tenderness. EYES: No scleral icterus. No injection or drainage. ENT: Nose without bleeding, purulent drainage or septal hematoma. Throat without erythema, tonsillar hypertrophy or exudate. Uvula midline. Airway patent. NECK: Trachea midline. Supple, nontender, no meningeal signs. CARDIOVASCULAR: RRR. No murmur appreciated. RESPIRATORY: Clear to auscultation. Breath sounds equal bilaterally. No wheezes , rales, or rhonchi. GASTROINTESTINAL: Abdomen soft, non-tender, nondistended. MUSCULOSKELETAL: Extremities without clubbing, cyanosis, or edema. NEUROLOGICAL: Withdraws minimally bilateral LE at ankle joint to painful stimuli. No spontaneous eye opening. Psych: could not be assessed IV line sites with no e.o infection. Laboratory Laboratory Tests Test 10/17/16 10/17/16 10/18/16 10/18/16 17:45 22:55 03:45 09:27 Troponin I 5.59 5.89 White Blood Count 20.3 Red Blood Count 3.86 Hemoglobin 10.9 Hematocrit 35.6 Mean Corpuscular Volume 92.1 Mean Corpuscular Hemoglobin 28.2 Mean Corpuscular Hemoglobin 30.6 Concent Red Cell Distribution Width 16.8 Platelet Count 239 Mean Platelet Volume 9.5 Neutrophils (%) (Auto) 86.1 Lymphocytes (%) (Auto) 8.5 Monocytes (%) (Auto) 4.6 Eosinophils (%) (Auto) 0.5 Basophils (%) (Auto) 0.3 Neutrophils # (Auto) 17.5 Lymphocytes # (Auto) 1.7 Monocytes # (Auto) 0.9 Eosinophils # (Auto) 0.1 Basophils # (Auto) 0.1 CBC Comment DIFF FINAL Differential Comment Sodium Level 147 Potassium Level 4.1 Chloride Level 116 Carbon Dioxide Level 18.8 Anion Gap 12 Blood Urea Nitrogen 57 Creatinine 2.15 Estimat Glomerular Filtration 22 Rate Random Glucose 180 Lactic Acid Level 2.7 Calcium Level 7.4 Protein Corrected Calcium 8.1 Total Bilirubin 0.5 Aspartate Amino Transf 194 (AST/SGOT) Alanine Aminotransferase 128 (ALT/SGPT) Alkaline Phosphatase 90 Total Protein 5.8 Albumin 2.0 Blood Gas Puncture Site RT RADIAL Blood Gas Patient Temperature 98.6 Blood Gas HCO3 16 Blood Gas Base Excess -8.7 Blood Gas Oxygen Saturation 95 Arterial Blood pH 7.33 Arterial Blood Partial 31 Pressure CO2 Arterial Blood Partial 115 Pressure O2 Arterial Blood Oxygen Content 13.6 Arterial Blood 0.0 Carboxyhemoglobin Arterial Blood Methemoglobin 0.9 Blood Gas Hemoglobin 10.1 Oxygen Delivery Device VENTILATOR Blood Gas Ventilator Setting 400/AC12/PEEP5 Blood Gas Inspired Oxygen 40 Date/Time Procedure Status Source Growth 10/18/16 09:42 Aerobic Blood Culture Received Blood Peripheral Pending 10/18/16 09:42 Anaerobic Blood Culture Received Blood Peripheral Pending 10/17/16 10:36 Urine Culture - Preliminary Resulted Urine Catheterized Urine NO GROWTH IN 24 HOURS. 10/17/16 10:36 Legionella Antigen - Final Complete Urine Catheterized Urine PRESUMPTIVE NEGATIVE FOR LEGIONELLA P... 10/17/16 10:36 Streptococcus pneumoniae Antigen (M - Final Complete Urine Catheterized Urine PRESUMPTIVE NEGATIVE FOR STREPTOCOCCU... 10/17/16 04:50 Gram Stain - Final Resulted Sputum Endotracheal 10/17/16 04:50 Sputum Culture - Preliminary Resulted Beta Strep Not Group A 10/16/16 16:50 Aerobic Blood Culture - Preliminary Resulted Blood Peripheral NO GROWTH IN 2 DAYS 10/16/16 16:50 Anaerobic Blood Culture - Preliminary Resulted Blood Peripheral NO GROWTH IN 2 DAYS 10/16/16 16:46 Influenza Types A,B Antigen ([place]) - Final Complete Nasal Aspirate NEGATIVE FOR FLU A AND B ANTIGEN.... Result Diagram: 10/18/16 0345 10/18/16 0345 Imaging Last Impressions Chest X-Ray 10/18/16 0000 Signed Impressions: Service Date/Time: Tuesday, October 18, 2016 03:23 - CONCLUSION: Worsening left lung infiltrate with new right lung infiltrate. Venkatesh Peña Jr., MD Renal Ultrasound 10/17/16 0000 Signed Impressions: Service Date/Time: Monday, October 17, 2016 10:35 - CONCLUSION: 1. No findings to indicate renal obstruction. 2. Increased echotexture of the renal cortex suggesting underlying medical renal disease. Jaret Carranza MD Head CT 10/16/16 1611 Signed Impressions: Service Date/Time: Sunday, October 16, 2016 17:11 - CONCLUSION: 1. A 1.1 cm area of diminished attenuation in the left side of the cerebellar vermis with extensive diminished density in the sharon extending up into the cerebral peduncles and the right thalamic nuclei. An infarct in these regions would be presumably incompatible with life and therefore, I'm concerned that these may represent metastatic deposits. MRI of the brain with and without gadolinium is recommended for further characterization. 2. Mild sinusitis in the left sphenoid. 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 Venkatesh Peña Jr., MD Brain MRI 10/16/16 0000 Signed Impressions: Service Date/Time: Monday, October 17, 2016 00:42 - CONCLUSION: 1. 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 2. See the MRA report separately. Venkatesh Peña Jr., MD Assessment and Plan Assessment and Plan Possible sepsis present on admission. Staph epidermidis: likely contaminant. Await repeat blood cultures. Aspiration pneumonia present on admission. Now ? component of aspiration in health care setting ? HCAP Persistent fevers: infection plus component of central fever (given multiple infarcts in brain) Multi infarct Ischemic strokes extensive based on review of MRI. Acute encephalopathy: stroke, infection. HTN Dyslipidemia DM uncontrolled. Penicillin allergy Recs Continue Azactam IV DC Azithro Start Levaquin IV (better strep and also additional PSAE plus atypical coverage) Continue Vanco IV (target 15-20) for pneumonia. Recheck Sputum cultures Follow cultures Follow clinically Await Palliative care input. Noted Full code at present time. Needs at least code status addressed. Hallie URIARTE and Critical thinking and decision making, reviewed MAR, reviewed and compared radiology. Chantal Rees MD Oct 18, 2016 12:55
[2016-10-18] MEDS ORDERED: DEXT 5%-NACL 0.45% 1000 ML INJ 1,000 ML IV SCH (13:00)
--- NOTE | 2016-10-18 13:25 | MB ---
cc: ARYA DAVIS DATE OF CONSULTATION: 10/18/2016. HISTORY OF PRESENT ILLNESS: Ms. Farias is a 76-year-old white female with a history of hypertension, diabetes mellitus and dyslipidemia. She was found unresponsive in her home. She was in respiratory distress. She was intubated and placed on a ventilator at that time. PAST MEDICAL HISTORY: Her past medical history is positive for: 1. Hypertension. 2. Dyslipidemia. 3. Diabetes mellitus. PAST SURGICAL HISTORY: 1. Hysterectomy. 2. Tonsillectomy. MEDICATIONS: 1. Antibiotics. 2. Aspirin. 3. Pravastatin. 4. Pepcid. 5. Colace. 6. Insulin. ALLERGIES: PENICILLIN. SOCIAL HISTORY: The patient does not smoke. FAMILY HISTORY: Family history is negative for heart disease. REVIEW OF SYSTEMS: The review of systems is otherwise negative. PHYSICAL EXAMINATION: VITAL SIGNS: Blood pressure 150/77, pulse 116 and irregular. GENERAL: Intubated. NECK: 2+ carotid upstrokes, no bruits. LUNGS: Clear. HEART: Irregularly irregular with no murmurs, rubs or gallops. ABDOMEN: Abdomen soft. No bruits. EXTREMITIES: Trace edema. 1+ distal pulses. NEUROLOGIC: Grossly nonfocal. EKGS : EKG was reviewed and showed atrial fibrillation with rapid ventricular response, left axis, left bundle branch block. LABS: Hemoglobin 10.5. Potassium 3.4, creatinine 2.15. Troponin 5.8, 5.5 and 5.6. CK 233 and 192. LDL 39. AST 37, ALT 38. DIAGNOSIS: 1. Acute CVA. 2. Coma. 3. Elevated troponin. 4. Atrial fibrillation with rapid ventricular response. 5. Respiratory failure. 6. Hypertension. 7. Diabetes mellitus. 8. Dyslipidemia. DISPOSITION: Ms. Farias has been unresponsive in the unit. Her MRI shows multiple strokes. Her troponin is not trending in either direction and I doubt it is related to acute coronary syndrome. Her echocardiogram shows moderate left ventricular systolic function with an ejection fraction of 35% and no segmental wall motion abnormalities. Recommend to continue intensive care unit care. Neurologic evaluation is in progress. The patient appears to have significant encephalopathy. Her EEG result is pending. I recommend to proceed with a palliative care consult. No further cardiac evaluation is planned at this time. MD ARMEN Landry /8:16 PM /1:12 PM NATALIYA
[2016-10-18] MEDS ORDERED: LEVOFLOXACIN 500 MG PREMIX INJ 100 ML IV SCH (14:00)
[2016-10-18] MEDS: SODIUM BICARBONATE 8.4% INJ 50 MEQ in DEXT 5%-NACL 0.45% 1000 ML INJ 1,000 ML IV SCH (14:28)
--- NOTE | 2016-10-18 17:35 | PD.CARD.PN ---
Subjective Subjective Remarks Intubated, on the vent, comatose Objective Medications Current Medications Medications (Trade) Dose Ordered Sig/Moris Route Start Time Stop Time Status Last Admin (NS Flush) 2 ml UNSCH PRN .XX 10/17/16 00:45 (NS Flush) 2 ml BID .XX 10/17/16 09:00 10/18/16 08:35 (Tylenol) 650 mg Q6H PRN PO 10/17/16 00:45 10/17/16 20:13 (Morphine Inj) 2 mg Q2H PRN IV 10/17/16 00:45 10/18/16 12:15 (Pepcid Inj) 10 mg Q12HR IV PUSH 10/17/16 09:00 10/18/16 08:38 (Ativan Inj) 1 mg Q1H PRN IV 10/17/16 00:45 10/18/16 12:15 (Tears Naturale Opth Soln) 1 drop TID EACH EYE 10/17/16 09:00 (Zofran Inj) 4 mg Q6H PRN IV 10/17/16 00:45 (Reglan Inj) 5 mg Q6H PRN IV 10/17/16 00:45 (Colace Liq) 100 mg Q12HR G-TUBE 10/17/16 09:00 10/17/16 07:58 (Heparin Inj) 5,000 units Q12H SQ 10/17/16 01:00 10/18/16 13:03 Miscellaneous Information 1 Q361D XX 10/17/16 00:45 (Chlorhexidine 2% Cloth) 3 pack Taper DAILY@04 TOP 10/17/16 04:00 10/13/17 03:59 10/18/16 04:00 (Chlorhexidine 2% Cloth) 3 pack UNSCH PRN TOP 10/17/16 00:45 (Beneprotein Powder) 2 pack TID G-TUBE 10/17/16 09:00 10/18/16 08:36 (D50w (Vial) Inj) 25 ml UNSCH PRN IV PUSH 10/17/16 09:00 (Glucagon Inj) 1 mg UNSCH PRN OTHER 10/17/16 09:00 (NovoLIN R SUPPLEMENTAL SCALE) 1 Q6H SQ 10/17/16 09:00 10/18/16 08:41 Aspirin 325 mg 325 mg DAILY PO 10/17/16 10:15 10/18/16 08:38 Aztreonam 1000 mg/ Sodium Chloride 100 ml @ 200 mls/hr Q8H IV 10/17/16 16:00 10/18/16 15:43 (Vancomycin Consult Pharmacy) 0 ml @ 0 mls/hr UNSCH OTHER 10/18/16 08:30 (Lopressor) 25 mg Q12HR PO 10/18/16 09:00 10/18/16 09:33 Water 250 ml 250 ml Q12HR G-TUBE 10/18/16 09:00 10/18/16 09:00 Sodium Bicarbonate 50 meq/Dextrose/ Sodium Chloride 1,050 ml @ 75 mls/hr Q14H IV 10/18/16 14:00 10/18/16 14:28 (Levaquin 500 Mg Premix Inj) 100 ml @ 100 mls/hr Q24H IV 10/18/16 14:00 10/18/16 14:27 Vital Signs / I&O Vital Signs Date Time Temp Pulse Resp B/P Pulse Ox O2 Delivery O2 Flow Rate FiO2 10/18/16 16:56 98 40 10/18/16 16:00 100.0 122 21 130/56 100 10/18/16 16:00 40 10/18/16 16:00 122 10/18/16 14:00 110 10/18/16 13:16 100 40 10/18/16 12:20 20 10/18/16 12:00 100.3 119 24 150/84 99 10/18/16 12:00 40 10/18/16 12:00 119 10/18/16 10:10 92 40 10/18/16 10:00 118 10/18/16 08:00 99.4 110 24 128/71 100 10/18/16 08:00 40 10/18/16 08:00 110 10/18/16 07:48 100 40 10/18/16 06:00 119 10/18/16 04:00 126 10/18/16 04:00 100.7 126 26 132/69 98 10/18/16 04:00 40 10/18/16 03:50 98 40 10/18/16 02:00 116 10/18/16 00:00 40 10/18/16 00:00 102.3 125 24 104/75 99 10/18/16 00:00 125 10/17/16 23:31 100 40 10/17/16 22:00 125 10/17/16 20:48 100 40 10/17/16 20:00 102.6 152 30 157/76 98 10/17/16 20:00 40 10/17/16 20:00 152 10/17/16 18:00 116 10/17/16 17:42 99 40 I/O 10/17/16 10/17/16 10/17/16 10/18/16 10/18/16 10/18/16 07:00 15:00 23:00 07:00 15:00 23:00 Intake Total 2549 ml 2064 ml 1860 ml 1274 ml 1220 ml Output Total 800 ml 700 ml 475 ml 250 ml 600 ml Balance 1749 ml 1364 ml 1385 ml 1024 ml 620 ml Intake Oral 0 ml 0 ml IV Total 2549 ml 1244 ml 1400 ml 980 ml 875 ml Tube Feeding 700 ml 260 ml 294 ml 105 ml Other 120 ml 200 ml 240 ml Output Urine Total 800 ml 700 ml 475 ml 250 ml 600 ml # Bowel Movements 1 1 0 Physical Exam GENERAL: Intubated, comatose SKIN: Warm and dry. HEAD: Normocephalic. EYES: No scleral icterus. No injection or drainage. NECK: Supple, trachea midline. No JVD or lymphadenopathy. CARDIOVASCULAR: irregular rate and rhythm without murmurs, gallops, or rubs. RESPIRATORY: Breath sounds equal bilaterally. No accessory muscle use. GASTROINTESTINAL: Abdomen soft, non-tender, nondistended. MUSCULOSKELETAL: No cyanosis, or edema. Laboratory Laboratory Tests Test 10/17/16 10/17/16 10/18/16 10/18/16 17:45 22:55 03:45 09:27 Troponin I 5.59 NG/ML 5.89 NG/ML White Blood Count 20.3 TH/MM3 Red Blood Count 3.86 MIL/MM3 Hemoglobin 10.9 GM/DL Hematocrit 35.6 % Mean Corpuscular Volume 92.1 FL Mean Corpuscular Hemoglobin 28.2 PG Mean Corpuscular Hemoglobin 30.6 % Concent Red Cell Distribution Width 16.8 % Platelet Count 239 TH/MM3 Mean Platelet Volume 9.5 FL Neutrophils (%) (Auto) 86.1 % Lymphocytes (%) (Auto) 8.5 % Monocytes (%) (Auto) 4.6 % Eosinophils (%) (Auto) 0.5 % Basophils (%) (Auto) 0.3 % Neutrophils # (Auto) 17.5 TH/MM3 Lymphocytes # (Auto) 1.7 TH/MM3 Monocytes # (Auto) 0.9 TH/MM3 Eosinophils # (Auto) 0.1 TH/MM3 Basophils # (Auto) 0.1 TH/MM3 CBC Comment DIFF FINAL Differential Comment Sodium Level 147 MEQ/L Potassium Level 4.1 MEQ/L Chloride Level 116 MEQ/L Carbon Dioxide Level 18.8 MEQ/L Anion Gap 12 MEQ/L Blood Urea Nitrogen 57 MG/DL Creatinine 2.15 MG/DL Estimat Glomerular Filtration 22 ML/MIN Rate Random Glucose 180 MG/DL Lactic Acid Level 2.7 mmol/L Calcium Level 7.4 MG/DL Protein Corrected Calcium 8.1 MG/DL Total Bilirubin 0.5 MG/DL Aspartate Amino Transf 194 U/L (AST/SGOT) Alanine Aminotransferase 128 U/L (ALT/SGPT) Alkaline Phosphatase 90 U/L Total Protein 5.8 GM/DL Albumin 2.0 GM/DL Blood Gas Puncture Site RT RADIAL Blood Gas Patient Temperature 98.6 Blood Gas HCO3 16 mmol/L Blood Gas Base Excess -8.7 mmol/L Blood Gas Oxygen Saturation 95 % Arterial Blood pH 7.33 Arterial Blood Partial 31 mmHg Pressure CO2 Arterial Blood Partial 115 mmHg Pressure O2 Arterial Blood Oxygen Content 13.6 Vol % Arterial Blood 0.0 % Carboxyhemoglobin Arterial Blood Methemoglobin 0.9 % Blood Gas Hemoglobin 10.1 G/DL Oxygen Delivery Device VENTILATOR Blood Gas Ventilator Setting 400/AC12/PEEP5 Blood Gas Inspired Oxygen 40 % Imaging Last Impressions Chest X-Ray 10/18/16 0000 Signed Impressions: Service Date/Time: Tuesday, October 18, 2016 03:23 - CONCLUSION: Worsening left lung infiltrate with new right lung infiltrate. Venkatesh Peña Jr., MD Renal Ultrasound 10/17/16 0000 Signed Impressions: Service Date/Time: Monday, October 17, 2016 10:35 - CONCLUSION: 1. No findings to indicate renal obstruction. 2. Increased echotexture of the renal cortex suggesting underlying medical renal disease. Jaret Carranza MD Head CT 10/16/16 1611 Signed Impressions: Service Date/Time: Sunday, October 16, 2016 17:11 - CONCLUSION: 1. A 1.1 cm area of diminished attenuation in the left side of the cerebellar vermis with extensive diminished density in the sharon extending up into the cerebral peduncles and the right thalamic nuclei. An infarct in these regions would be presumably incompatible with life and therefore, I'm concerned that these may represent metastatic deposits. MRI of the brain with and without gadolinium is recommended for further characterization. 2. Mild sinusitis in the left sphenoid. 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 Venkatesh Peña Jr., MD Brain MRI 10/16/16 Signed Impressions: Service Date/Time: Monday, October 17, 2016 00:42 - CONCLUSION: 1. 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 2. See the MRA report separately. Venkatesh Peña Jr., MD Assessment and Plan Problem List: (1) Cerebrovascular accident (2) Coma (3) Respiratory failure (4) Atrial fibrillation (5) Acute renal failure Assessment and Plan Remains comatose. Very poor prognosis. Palliative care consulted. D/w patient's family. Problem Qualifiers (1) Coma: (2) Respiratory failure: (3) Atrial fibrillation: Qualified Code: I48.91 - Atrial fibrillation, unspecified type Eboni Lea MD Oct 18, 2016 17:35
--- NOTE | 2016-10-18 18:04 | RADRPT ---
EXAM DATE/TIME: 10/18/2016 16:24 [facility] COMPARISON: No previous studies available for comparison. INDICATIONS : Increased lab values. MEDICAL HISTORY : Hypertension. Hypercholesterolemia. Renal failure, acute. Cerebrovascular accident. Afib. Diabetes. A rthritis. Ostoporosis. SURGICAL HISTORY : Tonsillectomy. Hysterectomy. Back surgery. ENCOUNTER: Subsequent ACUITY: 1 day PAIN SCORE: Nonresponsive. LOCATION: Abdomen. MEASUREMENTS: LIVER: 16.2 cm length COMMON DUCT: 5 mm RIGHT KIDNEY: 10.7 x 5.7 x 5.3 cm SPLEEN: 10.3 cm length FINDINGS: There is a subtle pancreatic edema. Pancreatic duct is also mildly dilated. Liver enlarged to 16.2 cm with fatty infiltration. No gallstones or biliary ductal dilatation. Spleen unremarkable. Trace righ t perinephric fluid. CONCLUSION: 1. Questionable pancreatic edema. 2. Increased liver echogenicity which can reflect fatty infiltration or hepatocellular disease. 3. Trace right perinephric fluid. Vladimir Escalera MD on October 18, 2016 at 18:00 Board Certified Radiologist. This report was verified electronically.
[2016-10-19] VITALS: BP 148/90; PULSE 109; RESP 22; TEMP 101.2; O2SAT 98
[2016-10-19] MEDS: HEPARIN SODIUM - SQ 10,000 UNITS/ML VIAL SQ SCH (01:55)
[2016-10-19 02:00] VITALS: PULSE 103
[2016-10-19] MEDS: INSULIN NovoLIN REGULAR SUPPLEMENTAL SCALE SQ SCH (03:00)
[2016-10-19] MEDS: CHLORHEXIDINE GLUCONATE 2 % 1 PACK (2 CLOTHS) TOP SCH (03:38)
[2016-10-19] MEDS: SODIUM BICARBONATE 8.4% INJ 50 MEQ in DEXT 5%-NACL 0.45% 1000 ML INJ 1,000 ML IV SCH (03:38)
[2016-10-19 04:00] VITALS: BP 153/70; PULSE 103; PULSE 89; RESP 22; TEMP 101.3; O2SAT 98
[2016-10-19 04:04] VITALS: O2SAT 98
[2016-10-19] MEDS: RESP: ALBUTEROL 2.5 MG/IPRATROPIUM 0.5 MG NEB (SCH) NEB ×2 (04:04→08:16)
[2016-10-19] MEDS: LORazepam 2 MG/ML VIAL IV PRN (05:53)
[2016-10-19] MEDS: MORPHINE SULFATE 4 MG/ML INJ IV PRN (05:53)
[2016-10-19 06:00] VITALS: PULSE 155
[2016-10-19] MEDS ORDERED: METOPROLOL TARTRATE 5 MG/5 ML VIAL ONE (06:32)
[2016-10-19] MEDS ORDERED: METOPROLOL TARTRATE 5 MG/5 ML VIAL IV PUSH ONE (07:00)
[2016-10-19 07:36] LABS: HEMATOCRIT 31.1 % (35.0-46.0); MEAN CELL VOLUME 87.9 FL (80.0-100.0); MEAN CORPUSCULAR HEMOGLOBIN 28.4 PG (27.0-34.0); MEAN CORPUSCULAR HGB CONC 32.4 % (32.0-36.0); PLATELET COUNT 175 TH/MM3 (150-450); RED BLOOD COUNT 3.54 MIL/MM3 (4.00-5.30); RED CELL DISTRIBUTION WIDTH 16.5 % (11.6-17.2); WHITE BLOOD COUNT 13.9 TH/MM3 (4.0-11.0)
[2016-10-19 07:38] LABS: HEMO FLAGS AUTO DIFF
[2016-10-19 07:39] LABS: BICARBONATE 19.3 MEQ/L (21.0-32.0); CALCIUM-PROTEIN CORRECTED 7.8 MG/DL (8.5-10.1); POTASSIUM 3.7 MEQ/L (3.5-5.1); TOTAL BILIRUBIN ADULT 0.5 MG/DL (0.2-1.0)
[2016-10-19] MEDS ORDERED: INSULIN NovoLIN REGULAR SUPPLEMENTAL SCALE SQ SCH ×2 (07:45→08:28)
[2016-10-19] MEDS ORDERED: GLUCAGON 1 MG/ML VIAL OTHER PRN (07:45)
[2016-10-19] MEDS ORDERED: DEXTROSE 50% IN WATER 50 ML VIAL(D50) IV PUSH PRN (07:45)
--- NOTE | 2016-10-19 07:52 | HHI.CCPN ---
Subjective Remarks/Hospital Course 76-year-old female was found unresponsive in her home. Neighbors had noted that they had not seen her for 2-3 days. Paramedics found her unresponsive in respiratory distress. She does have a history of diabetes and was unresponsive once because of hypoglycemia. 10/17 Patient is intubated unresponsive on no sedation. Afebrile. MRI brain showed multifocal nonhemorrhagic acute infarctions involving the right MCA territory as well as the thalami, sharon, cerebral peduncles, and cerebellum. MRA nain showed occlusion of the right carotid artery, right posterior cerebral artery, and left middle cerebral artery. 10/18 Patient remains intubated unresponsive on no sedation. T: 102.6 last night. In Afib with RVR 10/19 Patient went to Afib with RVR this morning given Lopressor 2.5mg IV x1. Remains intubated unresponsive with persistent fever Tmax 101.3. Objective Vital Signs Date Time Temp Pulse Resp B/P Pulse Ox O2 Delivery O2 Flow Rate FiO2 10/19/16 06:00 155 10/19/16 04:04 98 40 10/19/16 04:00 101.3 22 153/70 10/16/16 20:20 Ventilator 10/16/16 16:15 15 Intake and Output 10/18/16 10/18/16 10/19/16 08:00 16:00 00:00 Intake Total 1274 ml 1220 ml 1160 ml Output Total 250 ml 600 ml 1000 ml Balance 1024 ml 620 ml 160 ml Result Diagram: 10/18/16 0345 10/18/16 0345 Other Results Laboratory Tests Test 10/18/16 09:27 Blood Gas Puncture Site RT RADIAL Blood Gas Patient Temperature 98.6 Blood Gas HCO3 16 mmol/L Blood Gas Base Excess -8.7 mmol/L Blood Gas Oxygen Saturation 95 % Arterial Blood pH 7.33 Arterial Blood Partial 31 mmHg Pressure CO2 Arterial Blood Partial 115 mmHg Pressure O2 Arterial Blood Oxygen Content 13.6 Vol % Arterial Blood 0.0 % Carboxyhemoglobin Arterial Blood Methemoglobin 0.9 % Blood Gas Hemoglobin 10.1 G/DL Oxygen Delivery Device VENTILATOR Blood Gas Ventilator Setting 400/AC12/PEEP5 Blood Gas Inspired Oxygen 40 % Imaging Last Impressions Liver Ultrasound 10/18/16 0000 Signed Impressions: Service Date/Time: Tuesday, October 18, 2016 16:24 - CONCLUSION: 1. Questionable pancreatic edema. 2. Increased liver echogenicity which can reflect fatty infiltration or hepatocellular disease. 3. Trace right perinephric fluid. Vladimir Escalera MD Chest X-Ray 10/18/16 0000 Signed Impressions: Service Date/Time: Tuesday, October 18, 2016 03:23 - CONCLUSION: Worsening left lung infiltrate with new right lung infiltrate. Venkatesh Peña Jr., MD Renal Ultrasound 10/17/16 0000 Signed Impressions: Service Date/Time: Monday, October 17, 2016 10:35 - CONCLUSION: 1. No findings to indicate renal obstruction. 2. Increased echotexture of the renal cortex suggesting underlying medical renal disease. Jaret Carranza MD Head CT 10/16/16 1611 Signed Impressions: Service Date/Time: Sunday, October 16, 2016 17:11 - CONCLUSION: 1. A 1.1 cm area of diminished attenuation in the left side of the cerebellar vermis with extensive diminished density in the sharon extending up into the cerebral peduncles and the right thalamic nuclei. An infarct in these regions would be presumably incompatible with life and therefore, I'm concerned that these may represent metastatic deposits. MRI of the brain with and without gadolinium is recommended for further characterization. 2. Mild sinusitis in the left sphenoid. 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 Venkatesh Peña Jr., MD Brain MRI 10/16/16 0000 Signed Impressions: Service Date/Time: Monday, October 17, 2016 00:42 - CONCLUSION: 1. 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 2. See the MRA report separately. Venkatesh Peña Jr., MD Objective Remarks GENERAL: Patient is lying in bed intubated and unresponsive. SKIN: Warm and dry. HEAD: Normocephalic. EYES: No scleral icterus. No injection or drainage. NECK: Supple, trachea midline. No JVD or lymphadenopathy. CARDIOVASCULAR: Tachycardic, irregular without murmurs, gallops, or rubs. RESPIRATORY: Breath sounds equal bilaterally. Few coarse BS GASTROINTESTINAL: Abdomen soft, non-tender, nondistended. MUSCULOSKELETAL: No cyanosis, or edema. Neuro: Unresponsive, intubated does not follow commands. A/P Problem List: (1) Cerebrovascular accident ICD Code: I63.9 Status: Acute (2) Pneumonia ICD Code: J18.9 Status: Acute (3) Respiratory failure ICD Code: J96.90 Status: Acute (4) Coma ICD Code: R40.20 Status: Acute Assessment and Plan VDRF Encephalopathy Multiple khan including brain stem. Febrile Illness : infectious process , central fever 2nd CVA Afib RVR Elevated trop/NSTEMI Cardiomyopathy ARF Coagulopathy Elevated LFT;s Hypernatremia Leukocytosis Left sided Pneumonia Plan Neuro: On no sedation unresponsive. Monitor neuro status and avoid sedatives. MRA brain: Occlusion of the right carotid artery, right posterior cerebral artery, and left middle cerebral artery. MRI brain: showed multifocal nonhemorrhagic acute infarctions involving the right MCA territory as well as the thalami, sharon, cerebral peduncles, and cerebellum Neuro consulted: Dr. Arnold, Continue with ASA discussed with Neuro. 10/17 EEG : Moderate encephalopathy Pulm: Continue with vent support keep sat >92% Bronchodilators. SBT daily as mundo her mental status will preclude her from extubation CV: Increase Lopressor 50mg Q12 for rate control. Monitor HR and BP keep MAP> 65mm Hg Cards is following- Dr. Lea. On ASA 325mg daily. Hold Statins due to elevated LFT's Echo showed EF 35%, severe pulm HTN with PAP 74mmHg. Due to multiple strokes including brainstem will not start patient on anticoagulation other than prophylaxis due to high risk of hemorrhagic conversion : Monitor renal function, I/O's, avoid nephrotoxins. Renal US: No renal obstruction, nephro is following- Dr. Mcarthur Renal function improving with Cr: 1.66 today from 2.15, UO:2225 ml in 24 hrs IVF D5W1/2NS+ 50meq bicarb@75ml/hr, on Free H20 250ml Q12 monitor sodium level. GI:On TF- Nepro with goal rate 40ml/hr, on Pepcid 10mg IV Q12 Monitor LFT's ( trending down) , US Liver: Increased liver echogenicity which can reflect fatty infiltration or hepatocellular disease. Trace right perinephric fluid. ID: Continue with abx per ID ( Aztreonam, Levaquin, Vancomycin), monitor for signs of infections ( Fever, WBC). WBC trending down Follow up on sputum and urine cxs. Nasal washing negative for Influenza. strep pneumonia and Legionella urinary Ag negative. 10/16 BC 07/29 bottles: Staph Epi, recheck BC x 2 sets, check C-diff PCR 10/17 Sputum cx: Beta strep not group A. Endo: Increase SSI to medium scale for glycemic control Heme: Monitor CBC GI prophylaxis- On Pepcid 10mg IV Q12 DVT prophylaxis- SCD, Heparin SQ Palliative care eval to asses with goals of care. Prognosis guarded. Patient is critically ill with resp failure, encephalopathy, multiple CVA's including brain stem, NSTEMI, renal failure and pneumonia. CCT 30 mins Problem Qualifiers (1) Respiratory failure: (2) Coma: Katelyn Perkins MD Oct 19, 2016 07:52
[2016-10-19 08:17] VITALS: O2SAT 99
[2016-10-19 08:19] LABS: BANDS 4 % (0-6); NEUTROPHIL # MANUAL DIFF 11.4 TH/MM3 (1.8-7.7); POLYS (SEG NEUTROPHILS) 78 % (16-70); WBC DIFF SAMPLE 100
[2016-10-19 08:21] LABS: PLATELET ESTIMATE SMEAR NORMAL (NORMAL); PLATELET MORPHOLOGY NORMAL (NORMAL); SCAN/DIFF FINAL DIFF MANUAL
[2016-10-19] MEDS ORDERED: METOPROLOL TARTRATE 50 MG TAB PO SCH (09:00)
[2016-10-19] MEDS: ASPIRIN 325 MG TAB PO SCH (09:17)
[2016-10-19] MEDS: AZTREONAM 1,000 MG/NS 100 ML IV SCH ×2 (09:17)
[2016-10-19] MEDS: FAMOTIDINE 20 MG/2 ML VIAL IV PUSH SCH (09:17)
[2016-10-19] MEDS: DOCUSATE SODIUM 100 MG/10 ML UDC G-TUBE SCH (09:17)
--- NOTE | 2016-10-19 09:55 | HHI.PR ---
Review/Management Diagnosis/Plan: (1) Acute ischemic multifocal posterior circulation stroke Plan: multifocal infarcts; midbrain and thalamic bilateral strokes multi-focal vessel occlusion recs: exam unchanged day 4 severe brainstem strokes. very high probability of /or severe neurological disability; in addition has renal failure and elevated trops aspirin/hep dvt prophylaxis daughter waiting for brothers to arrive palliative care (2) Coma (3) Atrial fibrillation (4) Respiratory failure Subjective Subjective Comments No acute events reported Active Medications Current Medications Medications (Trade) Dose Ordered Sig/Moris Route Start Time Stop Time Status Last Admin (NS Flush) 2 ml UNSCH PRN .XX 10/17/16 00:45 (NS Flush) 2 ml BID .XX 10/17/16 09:00 10/18/16 20:10 (Tylenol) 650 mg Q6H PRN PO 10/17/16 00:45 10/17/16 20:13 (Morphine Inj) 2 mg Q2H PRN IV 10/17/16 00:45 10/19/16 05:53 (Pepcid Inj) 10 mg Q12HR IV PUSH 10/17/16 09:00 10/19/16 09:17 (Ativan Inj) 1 mg Q1H PRN IV 10/17/16 00:45 10/19/16 05:53 (Tears Naturale Opth Soln) 1 drop TID EACH EYE 10/17/16 09:00 (Zofran Inj) 4 mg Q6H PRN IV 10/17/16 00:45 (Reglan Inj) 5 mg Q6H PRN IV 10/17/16 00:45 (Colace Liq) 100 mg Q12HR G-TUBE 10/17/16 09:00 10/19/16 09:17 (Heparin Inj) 5,000 units Q12H SQ 10/17/16 01:00 10/19/16 01:55 Miscellaneous Information 1 Q361D XX 10/17/16 00:45 (Chlorhexidine 2% Cloth) 3 pack Taper DAILY@04 TOP 10/17/16 04:00 10/13/17 03:59 10/19/16 03:38 (Chlorhexidine 2% Cloth) 3 pack UNSCH PRN TOP 10/17/16 00:45 (Beneprotein Powder) 2 pack TID G-TUBE 10/17/16 09:00 10/18/16 18:00 Aspirin 325 mg 325 mg DAILY PO 10/17/16 10:15 10/19/16 09:17 Aztreonam 1000 mg/ Sodium Chloride 100 ml @ 200 mls/hr Q8H IV 10/17/16 16:00 10/19/16 09:17 (Vancomycin Consult Pharmacy) 0 ml @ 0 mls/hr UNSCH OTHER 10/18/16 08:30 Water 250 ml 250 ml Q12HR G-TUBE 10/18/16 09:00 10/18/16 20:11 Sodium Bicarbonate 50 meq/Dextrose/ Sodium Chloride 1,050 ml @ 75 mls/hr Q14H IV 10/18/16 14:00 10/19/16 03:38 (Levaquin 500 Mg Premix Inj) 100 ml @ 100 mls/hr Q24H IV 10/18/16 14:00 10/18/16 14:27 (Lopressor) 50 mg Q12HR PO 10/19/16 09:00 (D50w (Vial) Inj) 25 ml UNSCH PRN IV PUSH 10/19/16 07:45 Glucagon 1 mg 1 mg UNSCH PRN OTHER 10/19/16 07:45 (Calcium Gluconate Inj/NS Inj) 110 ml @ 110 mls/hr ONCE ONCE IV 10/19/16 10:00 10/19/16 10:59 Insulin Human Regular 1 1 Q4HR SQ 10/19/16 08:28 (Vancomycin Inj/ NS 250 ml Inj) 262.5 ml @ 262.5 mls/ hr ONCE ONCE IV 10/19/16 11:00 10/19/16 11:59 Allergies Allergies Coded Allergies Penicillin (Verified Allergy, Severe, HIVES, 10/16/16) Review of Systems All other ROS: Unable to obtain Exam I&O / VS 10/18/16 10/18/16 10/19/16 15:00 23:00 07:00 Intake Total 1220 ml 1160 ml 861 ml Output Total 600 ml 1000 ml 625 ml Balance 620 ml 160 ml 236 ml Intake Oral 0 ml IV Total 875 ml 682 ml 573 ml Tube Feeding 105 ml 178 ml 288 ml Other 240 ml 300 ml Output Urine Total 600 ml 1000 ml 625 ml # Bowel Movements 0 Vital Signs Date Time Temp Pulse Resp B/P Pulse Ox O2 Delivery O2 Flow Rate FiO2 10/19/16 08:17 99 40 10/19/16 06:00 155 10/19/16 04:04 98 40 10/19/16 04:00 103 10/19/16 04:00 101.3 89 22 153/70 98 10/19/16 04:00 40 10/19/16 02:00 103 10/19/16 00:00 40 10/19/16 00:00 109 10/19/16 00:00 101.2 109 22 148/90 98 10/18/16 23:36 98 40 10/18/16 22:00 101 10/18/16 20:00 40 10/18/16 20:00 101.0 137 24 106/78 98 10/18/16 20:00 120 10/18/16 19:44 98 40 10/18/16 18:00 142 10/18/16 16:56 98 40 10/18/16 16:00 100.0 122 21 130/56 100 10/18/16 16:00 40 10/18/16 16:00 122 10/18/16 14:00 110 10/18/16 13:16 100 40 10/18/16 12:20 20 10/18/16 12:00 100.3 119 24 150/84 99 10/18/16 12:00 40 10/18/16 12:00 119 10/18/16 10:10 92 40 10/18/16 10:00 118 Exam Comments intubated, no sedation. coma state, non-verbal, not following, ou 5mm fixed, eom impaired. +corneal reflex, no motor movement to tactile, +enid le babinski Objective Micro and Labs Laboratory Tests Test 10/19/16 10/19/16 05:00 05:50 White Blood Count 13.9 Red Blood Count 3.54 Hemoglobin 10.1 Hematocrit 31.1 Mean Corpuscular Volume 87.9 Mean Corpuscular Hemoglobin 28.4 Mean Corpuscular Hemoglobin 32.4 Concent Red Cell Distribution Width 16.5 Platelet Count 175 Mean Platelet Volume 9.2 Neutrophils (%) (Auto) Lymphocytes (%) (Auto) Monocytes (%) (Auto) Eosinophils (%) (Auto) Basophils (%) (Auto) Neutrophils # (Auto) Lymphocytes # (Auto) Monocytes # (Auto) Eosinophils # (Auto) Basophils # (Auto) CBC Comment AUTO DIFF Differential Total Cells 100 Counted Neutrophils % (Manual) 78 Band Neutrophils % 4 Lymphocytes % 14 Monocytes % 4 Neutrophils # (Manual) 11.4 Differential Comment FINAL DIFF MANUAL Platelet Estimate NORMAL Platelet Morphology Comment NORMAL Sodium Level 145 Potassium Level 3.7 Chloride Level 113 Carbon Dioxide Level 19.3 Anion Gap 13 Blood Urea Nitrogen 56 Creatinine 1.66 Estimat Glomerular Filtration 30 Rate Random Glucose 224 Calcium Level 7.2 Protein Corrected Calcium 7.8 Total Bilirubin 0.5 Aspartate Amino Transf 79 (AST/SGOT) Alanine Aminotransferase 110 (ALT/SGPT) Alkaline Phosphatase 82 Total Protein 5.9 Albumin 1.7 Random Vancomycin Level 8.3 Date/Time Procedure Status Source Growth 10/18/16 13:32 Gram Stain - Final Resulted Sputum Endotracheal 10/18/16 13:32 Sputum Culture Resulted Sputum Endotracheal Pending 10/18/16 09:42 Aerobic Blood Culture Received Blood Peripheral Pending 10/18/16 09:42 Anaerobic Blood Culture Received Blood Peripheral Pending 10/17/16 10:36 Urine Culture - Preliminary Resulted Urine Catheterized Urine NO GROWTH IN 24 HOURS. 10/17/16 10:36 Legionella Antigen - Final Complete Urine Catheterized Urine PRESUMPTIVE NEGATIVE FOR LEGIONELLA P... 10/17/16 10:36 Streptococcus pneumoniae Antigen (M - Final Complete Urine Catheterized Urine PRESUMPTIVE NEGATIVE FOR STREPTOCOCCU... 10/16/16 16:50 Aerobic Blood Culture - Preliminary Resulted Blood Peripheral NO GROWTH IN 2 DAYS 10/16/16 16:50 Anaerobic Blood Culture - Preliminary Resulted Blood Peripheral NO GROWTH IN 2 DAYS 10/16/16 16:46 Influenza Types A,B Antigen ([place]) - Final Complete Nasal Aspirate NEGATIVE FOR FLU A AND B ANTIGEN.... Problem Qualifiers (1) Acute ischemic multifocal posterior circulation stroke: Qualified Code: I63.539 - Acute ischemic multifocal posterior circulation stroke, unspecified laterality (2) Coma: (3) Atrial fibrillation: Qualified Code: I48.91 - Atrial fibrillation, unspecified type (4) Respiratory failure: Sean Cardenas MD Oct 19, 2016 09:55
[2016-10-19] MEDS ORDERED: CALCIUM GLUCONATE INJ 1 GM in SODIUM CHLORIDE 0.9% INJ 100 ML IV ONE (10:00)
--- NOTE | 2016-10-19 10:54 | PD.CONS ---
Consult Service Palliative Care Consult Requested By Dr. Roberson . Primary Care Physician Unknown . Reason for Consultation a. To assist with evaluation and management of symptoms including: Dyspnea b. To assist medical decision maker(s) with: better understanding of current medical conditions; weighing benefits/burdens of medical treatment options; making medical treatment decisions. . HPI History of Present Illness This 76-year-old female had not been seen by her neighbors for a couple days, and then was found on her floor unresponsive and severely dyspneic. She was brought to the emergency department where she was noted to be hypoxic, and findings in the emergency department included: * Unresponsive * Pupils unequal * Hypoxic with oxygen saturation 60% on 100% nonrebreather * Temp 104, pulse 170, blood pressure 162/68 * Rhythm was atrial fibrillation * Urinalysis negative * White count 14.0, hemoglobin 9.4 * Sodium 152, creatinine 1.6, albumin 1.8 * Troponin 5.16 * Chest x-ray with left-sided infiltrate * CT brain scan initially read as multiple strokes versus metastatic disease Because of the severe respiratory distress and hypoxia, the patient was INTUBATED (it is noted that no sedation was needed, no gag was present, and gastric contents were noted in the oropharynx). Subsequently, additional workup was undertaken, with MRA revealing included right cerebral artery, right posterior cerebral artery, and left middle cerebral artery. MRI was consistent with multiple strokes, including in the right MCA distribution, thalamus, sharon, cerebral pedicles, and cerebellum. The patient has remained completely unresponsive, on no sedation, since arrival at the hospital. Follow-up EEG revealed moderate encephalopathy, and follow-up chest x-ray revealed worsening infiltrates on the left and new infiltrates on the right. Palliative Care was consulted to assist with symptom management, and to enter into discussions with the patient's family regarding her current illnesses, the prognosis, and the benefits and burdens of the various treatment options. . Function/Cognitive Trajectory The patient lived alone, and was alert/oriented. She had some difficulty ambulating because of chronic back issues, and she used a walker or cane. She did not drive, but she prepares her own food. . Review of Systems ROS Limitations: Clinical Condition (history provided by family) Constitutional: DENIES: Fever, Weight loss Endocrine: DENIES: Polyuria Eyes: DENIES: Eye inflammation Ears, nose, mouth, throat: DENIES: Epistaxis Respiratory: COMPLAINS OF: Shortness of breath Cardiovascular: COMPLAINS OF: Syncope Gastrointestinal: DENIES: Bloody stools, Diarrhea, Vomiting, Vomiting blood Genitourinary: DENIES: Hematuria Musculoskeletal: COMPLAINS OF: Back pain (chronic) Integumentary: DENIES: Rash Hematologic/Lymphatics: DENIES: Bruising Immunologic/Allergic: DENIES: Urticaria Neurologic: DENIES: Seizures Psychiatric: DENIES: Hallucinations, Agitation Past Family Social History Coded Allergies: Penicillin (Verified Allergy, Severe, HIVES, 10/16/16) Past Medical History * Multiple ischemic strokes * Respiratory failure * Pneumonia, aspiration * Acute kidney injury * Diabetes * Chronic back pain * History of T12 compression fracture 2007 * Malnutrition, albumin 1.8 * Hypertension * Hyperlipidemia * Degenerative arthritis * Macular degeneration . Past Surgical History * Tonsils 194 * Hysterectomy 1979 * Lumbar decompressive laminectomy 2007 . Reported Medications She used Percocet at home for her back pain . Current Medications Medications (Trade) Dose Ordered Sig/Moris Route Start Time Stop Time Status Last Admin (NS Flush) 2 ml UNSCH PRN .XX 10/17/16 00:45 (NS Flush) 2 ml BID .XX 10/17/16 09:00 10/18/16 20:10 (Tylenol) 650 mg Q6H PRN PO 10/17/16 00:45 10/17/16 20:13 (Morphine Inj) 2 mg Q2H PRN IV 10/17/16 00:45 10/19/16 05:53 (Pepcid Inj) 10 mg Q12HR IV PUSH 10/17/16 09:00 10/19/16 09:17 (Ativan Inj) 1 mg Q1H PRN IV 10/17/16 00:45 10/19/16 05:53 (Tears Naturale Opth Soln) 1 drop TID EACH EYE 10/17/16 09:00 (Zofran Inj) 4 mg Q6H PRN IV 10/17/16 00:45 (Reglan Inj) 5 mg Q6H PRN IV 10/17/16 00:45 (Colace Liq) 100 mg Q12HR G-TUBE 10/17/16 09:00 10/19/16 09:17 (Heparin Inj) 5,000 units Q12H SQ 10/17/16 01:00 10/19/16 01:55 Miscellaneous Information 1 Q361D XX 10/17/16 00:45 (Chlorhexidine 2% Cloth) 3 pack Taper DAILY@04 TOP 10/17/16 04:00 10/13/17 03:59 10/19/16 03:38 (Chlorhexidine 2% Cloth) 3 pack UNSCH PRN TOP 10/17/16 00:45 (Beneprotein Powder) 2 pack TID G-TUBE 10/17/16 09:00 10/18/16 18:00 Aspirin 325 mg 325 mg DAILY PO 10/17/16 10:15 10/19/16 09:17 Aztreonam 1000 mg/ Sodium Chloride 100 ml @ 200 mls/hr Q8H IV 10/17/16 16:00 10/19/16 09:17 (Vancomycin Consult Pharmacy) 0 ml @ 0 mls/hr UNSCH OTHER 10/18/16 08:30 Water 250 ml 250 ml Q12HR G-TUBE 10/18/16 09:00 10/18/16 20:11 Sodium Bicarbonate 50 meq/Dextrose/ Sodium Chloride 1,050 ml @ 75 mls/hr Q14H IV 10/18/16 14:00 10/19/16 03:38 (Levaquin 500 Mg Premix Inj) 100 ml @ 100 mls/hr Q24H IV 10/18/16 14:00 10/18/16 14:27 (Lopressor) 50 mg Q12HR PO 10/19/16 09:00 (D50w (Vial) Inj) 25 ml UNSCH PRN IV PUSH 10/19/16 07:45 Glucagon 1 mg 1 mg UNSCH PRN OTHER 10/19/16 07:45 (Calcium Gluconate Inj/NS Inj) 110 ml @ 110 mls/hr ONCE ONCE IV 10/19/16 10:00 10/19/16 10:59 10/19/16 10:21 Insulin Human Regular 1 1 Q4HR SQ 10/19/16 08:28 (Vancomycin Inj/ NS 250 ml Inj) 262.5 ml @ 262.5 mls/ hr ONCE ONCE IV 10/19/16 11:00 10/19/16 11:59 10/19/16 10:21 Family History The patient's father at age 56 of an acute stroke. Her mother at age 46 of breast cancer. There is no family history of heart disease or diabetes. . Substance Use Tobacco: None. Alcohol: None. Prescription med abuse: None. Illicits: None. . Psychosocial History The patient was born and raised in [place], and moved to [place] in 1968. 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 She was once, in 2006. She has 3 children, daughter Lizette lives here in this area, son Markus lives in [place], and son Samuel lives in [place]. There are 3 grandchildren and one great-grandchild. . Spiritual/Cultural Factors The patient is Yazidism, and her spirituality has been important for her. The family wants a district wildlife manager to come "for last rights." . Living Will: Copy in medical record Health Care Surrogate: Copy in medical record Durable Power of Jewel Inspector: Never completed Health Care Surrogate(s): Daughter Lizette his primary, son Samuel is secondary . Documented care wishes: The living will is quite explicit . Family/friends goals: The patient's 3 children are all certain that she would not want to be kept alive this way, and that she would want life support withdrawn today to be allowed to naturally. . Ethical and Legal Issues There are no ethical issues that would impact her care or decision-making at this time. The patient lacks capacity for decision making, and she will not regain that capacity. Her daughter Lizette is the designated primary healthcare surrogate, and son Samuel is designated as secondary. . Physical Exam Vital Signs Date Time Temp Pulse Resp B/P Pulse Ox O2 Delivery O2 Flow Rate FiO2 10/19/16 08:17 99 40 10/19/16 06:00 155 10/19/16 04:04 98 40 10/19/16 04:00 103 10/19/16 04:00 101.3 89 22 153/70 98 10/19/16 04:00 40 10/19/16 02:00 103 10/19/16 00:00 40 10/19/16 00:00 109 10/19/16 00:00 101.2 109 22 148/90 98 10/18/16 23:36 98 40 10/18/16 22:00 101 10/18/16 20:00 40 10/18/16 20:00 101.0 137 24 106/78 98 10/18/16 20:00 120 3/26/17 19:44 98 40 10/18/16 18:00 142 10/18/16 16:56 98 40 10/18/16 16:00 100.0 122 21 130/56 100 10/18/16 16:00 40 10/18/16 16:00 122 10/18/16 14:00 110 10/18/16 13:16 100 40 10/18/16 12:20 20 10/18/16 12:00 100.3 119 24 150/84 99 10/18/16 12:00 40 10/18/16 12:00 119 10/18/16 10/19/16 19:00 07:00 Intake Total 1220 ml 2021 ml Output Total 600 ml 1625 ml Balance 620 ml 396 ml Intake Oral 0 ml IV Total 875 ml 1255 ml Tube Feeding 105 ml 466 ml Other 240 ml 300 ml Output Urine Total 600 ml 1625 ml # Bowel Movements 0 Exam CONSTITUTIONAL/GENERAL: This is an adequately nourished patient, in no apparent distress. Unresponsive in IMC, no sedatives TUBES/LINES/DRAINS: ET tube, NG tube, peripheral IV, Barnard catheter, rectal tube, SCDs SKIN: No jaundice, rashes, or lesions. Ecchymoses on upper extremities. No wounds seen anteriorly. Skin temperature appropriate. Not diaphoretic. HEAD: Atraumatic. Normocephalic. EYES: Pupils equal and round but not reactive.No scleral icterus. No injection or drainage. Fundi not examined. ENT: Nose without bleeding or purulent drainage. NECK: Trachea midline. Supple, nontender. No palpable thyroid enlargement or nodularity. CARDIOVASCULAR: Irregular rhythm without murmurs, gallops, or rubs. No JVD. RESPIRATORY/CHEST: Symmetric, unlabored respirations. Scattered rhonchi. GASTROINTESTINAL: Abdomen soft, nondistended. No hepato-splenomegaly, or palpable masses. No guarding. Bowel sounds present. GENITOURINARY: Without palpable bladder distension. Barnard catheter in place. MUSCULOSKELETAL: Extremities without clubbing, cyanosis, or edema. No joint tenderness or effusion noted. No calf tenderness. No mottling or clubbing. LYMPHATICS: No palpable cervical or supraclavicular adenopathy. NEUROLOGICAL: Unresponsive to verbal or painful stimuli PSYCHIATRIC: Unable to assess due to clinical condition. . Diagnostic Tests Laboratory Laboratory Tests Test 10/16/16 10/16/16 10/16/16 10/17/16 16:35 16:42 16:55 04:28 Urine Collection Type CATH Urine Color YELLOW (YELLW/STRAW) Urine Turbidity CLEAR (CLEAR) Urine pH 5.5 (5.0-8.5) Urine Specific Ferguson 1.010 (1.002-1.035) Urine Protein 30 mg/dL (NEG-TRACE) Urine Glucose (UA) NEG mg/dL (NEG) Urine Ketones NEG mg/dL (NEG) Urine Occult Blood NEG (NEG) Urine Nitrite NEG (NEG) Urine Bilirubin NEG (NEG) Urine Leukocyte Esterase NEG (NEG) Urine RBC 0-3 /hpf (0-3) Urine Squamous Epithelial 0-5 /hpf (0-5) Cells Microscopic Urinalysis Comment CULT NOT INDICATED White Blood Count 14.0 TH/MM3 (4.0-11.0) Red Blood Count 3.37 MIL/MM3 (4.00-5.30) Hemoglobin 9.4 GM/DL (11.6-15.3) Hematocrit 29.2 % (35.0-46.0) Mean Corpuscular Volume 86.7 FL (80.0-100.0) Mean Corpuscular Hemoglobin 28.1 PG (27.0-34.0) Mean Corpuscular Hemoglobin 32.3 % Concent (32.0-36.0) Red Cell Distribution Width 15.3 % (11.6-17.2) Platelet Count 262 TH/MM3 (150-450) Mean Platelet Volume 7.3 FL (7.0-11.0) Neutrophils (%) (Auto) 90.2 % (16.0-70.0) Lymphocytes (%) (Auto) 5.1 % (9.0-44.0) Monocytes (%) (Auto) 4.4 % (0.0-8.0) Eosinophils (%) (Auto) 0.1 % (0.0-4.0) Basophils (%) (Auto) 0.2 % (0.0-2.0) Neutrophils # (Auto) 12.7 TH/MM3 (1.8-7.7) Lymphocytes # (Auto) 0.7 TH/MM3 (1.0-4.8) Monocytes # (Auto) 0.6 TH/MM3 (0-0.9) Eosinophils # (Auto) 0.0 TH/MM3 (0-0.4) Basophils # (Auto) 0.0 TH/MM3 (0-0.2) CBC Comment DIFF FINAL Differential Comment Prothrombin Time 21.4 SEC (9.8-11.6) Prothromb Time International 1.9 RATIO Ratio Activated Partial 34.4 SEC Thromboplast Time (24.3-30.1) Sodium Level 152 MEQ/L (136-145) Potassium Level 2.4 MEQ/L (3.5-5.1) Chloride Level 122 MEQ/L (98-107) Carbon Dioxide Level 16.4 MEQ/L (21.0-32.0) Anion Gap 14 MEQ/L (5-15) Blood Urea Nitrogen 28 MG/DL (7-18) Creatinine 1.60 MG/DL (0.50-1.00) Estimat Glomerular Filtration 31 ML/MIN (>89) Rate Random Glucose 155 MG/DL (74-106) Lactic Acid Level 1.9 mmol/L (0.4-2.0) Calcium Level 5.9 MG/DL (8.5-10.1) Protein Corrected Calcium 7.0 MG/DL (8.5-10.1) Magnesium Level 0.9 MG/DL (1.5-2.5) Total Bilirubin 0.8 MG/DL (0.2-1.0) Aspartate Amino Transf 35 U/L (15-37) (AST/SGOT) Alanine Aminotransferase 31 U/L (10-53) (ALT/SGPT) Alkaline Phosphatase 48 U/L (45-117) Total Creatine Kinase 162 U/L (26-192) Troponin I 5.16 NG/ML (0.02-0.05) Total Protein 4.6 GM/DL (6.4-8.2) Albumin 1.8 GM/DL (3.4-5.0) Blood Gas Puncture Site RT BRACHIAL RT RADIAL Blood Gas Patient Temperature 98.6 98.6 Blood Gas HCO3 20 mmol/L 16 mmol/L (22-26) (22-26) Blood Gas Base Excess -3.5 mmol/L -7.7 mmol/L (-2-2) (-2-2) Blood Gas Oxygen Saturation 96 % (90-100) 96 % (90-100) Arterial Blood pH 7.46 7.41 (7.380-7.420) (7.380-7.420) Arterial Blood Partial 28 mmHG (38-42) 26 mmHg (38-42) Pressure CO2 Arterial Blood Partial 159 mmHG 147 mmHg Pressure O2 (61-120) (61-120) Arterial Blood Oxygen Content 16.9 Vol % 14.5 Vol % (12.0-20.0) (12.0-20.0) Arterial Blood 0.0 % (0-4) 1.0 % (0-4) Carboxyhemoglobin Arterial Blood Methemoglobin 0.7 % (0-2) 1.9 % (0-2) Blood Gas Hemoglobin 12.3 G/DL 10.6 G/DL (12.0-16.0) (12.0-16.0) Oxygen Delivery Device AC VENTILATOR 16/VT550/PEEP 5 Blood Gas Inspired Oxygen 80 % 50 % Blood Gas Ventilator Setting AC14/550/5PEEP Test 10/17/16 10/17/16 10/17/16 10/17/16 04:42 07:43 10:35 11:31 White Blood Count 21.3 TH/MM3 17.6 TH/MM3 (4.0-11.0) (4.0-11.0) Red Blood Count 3.91 MIL/MM3 3.70 MIL/MM3 (4.00-5.30) (4.00-5.30) Hemoglobin 10.9 GM/DL 10.5 GM/DL (11.6-15.3) (11.6-15.3) Hematocrit 33.9 % 32.0 % (35.0-46.0) (35.0-46.0) Mean Corpuscular Volume 86.7 FL 86.5 FL (80.0-100.0) (80.0-100.0) Mean Corpuscular Hemoglobin 27.9 PG 28.4 PG (27.0-34.0) (27.0-34.0) Mean Corpuscular Hemoglobin 32.2 % 32.9 % Concent (32.0-36.0) (32.0-36.0) Red Cell Distribution Width 15.4 % 15.6 % (11.6-17.2) (11.6-17.2) Platelet Count 200 TH/MM3 205 TH/MM3 (150-450) (150-450) Mean Platelet Volume 8.4 FL 8.4 FL (7.0-11.0) (7.0-11.0) Sodium Level 148 MEQ/L 147 MEQ/L (136-145) (136-145) Potassium Level 3.7 MEQ/L 3.4 MEQ/L (3.5-5.1) (3.5-5.1) Chloride Level 115 MEQ/L 115 MEQ/L (98-107) (98-107) Carbon Dioxide Level 18.3 MEQ/L 22.4 MEQ/L (21.0-32.0) (21.0-32.0) Anion Gap 15 MEQ/L (5-15) 10 MEQ/L (5-15) Blood Urea Nitrogen 41 MG/DL (7-18) 46 MG/DL (7-18) Creatinine 2.35 MG/DL 2.15 MG/DL (0.50-1.00) (0.50-1.00) Estimat Glomerular Filtration 20 ML/MIN (>89) 22 ML/MIN (>89) Rate Random Glucose 174 MG/DL 170 MG/DL (74-106) (74-106) Calcium Level 7.5 MG/DL 7.1 MG/DL (8.5-10.1) (8.5-10.1) Phosphorus Level 2.4 MG/DL 2.3 MG/DL (2.5-4.9) (2.5-4.9) Magnesium Level 1.1 MG/DL 1.4 MG/DL (1.5-2.5) (1.5-2.5) Total Bilirubin 1.0 MG/DL (0.2-1.0) Aspartate Amino Transf 37 U/L (15-37) (AST/SGOT) Alanine Aminotransferase 38 U/L (10-53) (ALT/SGPT) Alkaline Phosphatase 56 U/L (45-117) Total Creatine Kinase 233 U/L 192 U/L (26-192) (26-192) Creatine Kinase MB 6.8 NG/ML 5.3 NG/ML (0.5-3.6) (0.5-3.6) Creatine Kinase MB % 2.9 % (0.0-4.0) Troponin I 5.79 NG/ML 5.48 NG/ML (0.02-0.05) (0.02-0.05) Total Protein 5.6 GM/DL 5.6 GM/DL (6.4-8.2) (6.4-8.2) Albumin 2.1 GM/DL (3.4-5.0) Triglycerides Level 123 MG/DL (42-150) Cholesterol Level 96 MG/DL (120-200) LDL Cholesterol 39 MG/DL (0-99) HDL Cholesterol 32.3 MG/DL (40.0-60.0) Cholesterol/HDL Ratio 2.97 RATIO Nasal Screen MRSA (PCR) NEGATIVE (NEGATIVE) Blood Gas Puncture Site RT RADIAL Blood Gas Patient Temperature 98.6 Blood Gas HCO3 16 mmol/L (22-26) Blood Gas Base Excess -7.1 mmol/L (-2-2) Blood Gas Oxygen Saturation 96 % (90-100) Arterial Blood pH 7.43 (7.380-7.420) Arterial Blood Partial 25 mmHg (38-42) Pressure CO2 Arterial Blood Partial 144 mmHg Pressure O2 (61-120) Arterial Blood Oxygen Content 14.5 Vol % (12.0-20.0) Arterial Blood 0.2 % (0-4) Carboxyhemoglobin Arterial Blood Methemoglobin 1.0 % (0-2) Blood Gas Hemoglobin 10.6 G/DL (12.0-16.0) Oxygen Delivery Device VENTILATOR Blood Gas Ventilator Setting A/C14/450/PEEP5 Blood Gas Inspired Oxygen 40 % Neutrophils (%) (Auto) 91.2 % (16.0-70.0) Lymphocytes (%) (Auto) 6.3 % (9.0-44.0) Monocytes (%) (Auto) 2.3 % (0.0-8.0) Eosinophils (%) (Auto) 0.0 % (0.0-4.0) Basophils (%) (Auto) 0.2 % (0.0-2.0) Neutrophils # (Auto) 16.1 TH/MM3 (1.8-7.7) Lymphocytes # (Auto) 1.1 TH/MM3 (1.0-4.8) Monocytes # (Auto) 0.4 TH/MM3 (0-0.9) Eosinophils # (Auto) 0.0 TH/MM3 (0-0.4) Basophils # (Auto) 0.0 TH/MM3 (0-0.2) CBC Comment DIFF FINAL Differential Comment Prothrombin Time 14.5 SEC (9.8-11.6) Prothromb Time International 1.3 RATIO Ratio Activated Partial 31.4 SEC Thromboplast Time (24.3-30.1) Protein Corrected Calcium 7.9 MG/DL (8.5-10.1) Test 10/17/16 10/17/16 10/18/16 10/18/16 17:45 22:55 03:45 09:27 Troponin I 5.59 NG/ML 5.89 NG/ML (0.02-0.05) (0.02-0.05) White Blood Count 20.3 TH/MM3 (4.0-11.0) Red Blood Count 3.86 MIL/MM3 (4.00-5.30) Hemoglobin 10.9 GM/DL (11.6-15.3) Hematocrit 35.6 % (35.0-46.0) Mean Corpuscular Volume 92.1 FL (80.0-100.0) Mean Corpuscular Hemoglobin 28.2 PG (27.0-34.0) Mean Corpuscular Hemoglobin 30.6 % Concent (32.0-36.0) Red Cell Distribution Width 16.8 % (11.6-17.2) Platelet Count 239 TH/MM3 (150-450) Mean Platelet Volume 9.5 FL (7.0-11.0) Neutrophils (%) (Auto) 86.1 % (16.0-70.0) Lymphocytes (%) (Auto) 8.5 % (9.0-44.0) Monocytes (%) (Auto) 4.6 % (0.0-8.0) Eosinophils (%) (Auto) 0.5 % (0.0-4.0) Basophils (%) (Auto) 0.3 % (0.0-2.0) Neutrophils # (Auto) 17.5 TH/MM3 (1.8-7.7) Lymphocytes # (Auto) 1.7 TH/MM3 (1.0-4.8) Monocytes # (Auto) 0.9 TH/MM3 (0-0.9) Eosinophils # (Auto) 0.1 TH/MM3 (0-0.4) Basophils # (Auto) 0.1 TH/MM3 (0-0.2) CBC Comment DIFF FINAL Differential Comment Sodium Level 147 MEQ/L (136-145) Potassium Level 4.1 MEQ/L (3.5-5.1) Chloride Level 116 MEQ/L (98-107) Carbon Dioxide Level 18.8 MEQ/L (21.0-32.0) Anion Gap 12 MEQ/L (5-15) Blood Urea Nitrogen 57 MG/DL (7-18) Creatinine 2.15 MG/DL (0.50-1.00) Estimat Glomerular Filtration 22 ML/MIN (>89) Rate Random Glucose 180 MG/DL (74-106) Lactic Acid Level 2.7 mmol/L (0.4-2.0) Calcium Level 7.4 MG/DL (8.5-10.1) Protein Corrected Calcium 8.1 MG/DL (8.5-10.1) Total Bilirubin 0.5 MG/DL (0.2-1.0) Aspartate Amino Transf 194 U/L (15-37) (AST/SGOT) Alanine Aminotransferase 128 U/L (10-53) (ALT/SGPT) Alkaline Phosphatase 90 U/L (45-117) Total Protein 5.8 GM/DL (6.4-8.2) Albumin 2.0 GM/DL (3.4-5.0) Blood Gas Puncture Site RT RADIAL Blood Gas Patient Temperature 98.6 Blood Gas HCO3 16 mmol/L (22-26) Blood Gas Base Excess -8.7 mmol/L (-2-2) Blood Gas Oxygen Saturation 95 % (90-100) Arterial Blood pH 7.33 (7.380-7.420) Arterial Blood Partial 31 mmHg (38-42) Pressure CO2 Arterial Blood Partial 115 mmHg Pressure O2 (61-120) Arterial Blood Oxygen Content 13.6 Vol % (12.0-20.0) Arterial Blood 0.0 % (0-4) Carboxyhemoglobin Arterial Blood Methemoglobin 0.9 % (0-2) Blood Gas Hemoglobin 10.1 G/DL (12.0-16.0) Oxygen Delivery Device VENTILATOR Blood Gas Ventilator Setting 400/AC12/PEEP5 Blood Gas Inspired Oxygen 40 % Test 10/19/16 10/19/16 05:00 05:50 White Blood Count 13.9 TH/MM3 (4.0-11.0) Red Blood Count 3.54 MIL/MM3 (4.00-5.30) Hemoglobin 10.1 GM/DL (11.6-15.3) Hematocrit 31.1 % (35.0-46.0) Mean Corpuscular Volume 87.9 FL (80.0-100.0) Mean Corpuscular Hemoglobin 28.4 PG (27.0-34.0) Mean Corpuscular Hemoglobin 32.4 % Concent (32.0-36.0) Red Cell Distribution Width 16.5 % (11.6-17.2) Platelet Count 175 TH/MM3 (150-450) Mean Platelet Volume 9.2 FL (7.0-11.0) Neutrophils (%) (Auto) % (16.0-70.0) Lymphocytes (%) (Auto) % (9.0-44.0) Monocytes (%) (Auto) % (0.0-8.0) Eosinophils (%) (Auto) % (0.0-4.0) Basophils (%) (Auto) % (0.0-2.0) Neutrophils # (Auto) TH/MM3 (1.8-7.7) Lymphocytes # (Auto) TH/MM3 (1.0-4.8) Monocytes # (Auto) TH/MM3 (0-0.9) Eosinophils # (Auto) TH/MM3 (0-0.4) Basophils # (Auto) TH/MM3 (0-0.2) CBC Comment AUTO DIFF Differential Total Cells 100 Counted Neutrophils % (Manual) 78 % (16-70) Band Neutrophils % 4 % (0-6) Lymphocytes % 14 % (9-44) Monocytes % 4 % (0-8) Neutrophils # (Manual) 11.4 TH/MM3 (1.8-7.7) Differential Comment FINAL DIFF MANUAL Platelet Estimate NORMAL (NORMAL) Platelet Morphology Comment NORMAL (NORMAL) Sodium Level 145 MEQ/L (136-145) Potassium Level 3.7 MEQ/L (3.5-5.1) Chloride Level 113 MEQ/L (98-107) Carbon Dioxide Level 19.3 MEQ/L (21.0-32.0) Anion Gap 13 MEQ/L (5-15) Blood Urea Nitrogen 56 MG/DL (7-18) Creatinine 1.66 MG/DL (0.50-1.00) Estimat Glomerular Filtration 30 ML/MIN (>89) Rate Random Glucose 224 MG/DL (74-106) Calcium Level 7.2 MG/DL (8.5-10.1) Protein Corrected Calcium 7.8 MG/DL (8.5-10.1) Total Bilirubin 0.5 MG/DL (0.2-1.0) Aspartate Amino Transf 79 U/L (15-37) (AST/SGOT) Alanine Aminotransferase 110 U/L (10-53) (ALT/SGPT) Alkaline Phosphatase 82 U/L (45-117) Total Protein 5.9 GM/DL (6.4-8.2) Albumin 1.7 GM/DL (3.4-5.0) Random Vancomycin Level 8.3 COMMENT Result Diagram: 10/19/16 0500 10/19/16 0550 Microbiology Microbiology Date/Time Procedure Status Source Growth 10/16/16 16:42 Aerobic Blood Culture - Preliminary Resulted Blood Peripheral NO GROWTH IN 2 DAYS 10/16/16 16:42 Anaerobic Blood Culture - Preliminary Resulted Staphylococcus Epidermidis 10/16/16 16:46 Influenza Types A,B Antigen ([place]) - Final Complete Nasal Aspirate NEGATIVE FOR FLU A AND B ANTIGEN.... 10/16/16 16:50 Aerobic Blood Culture - Preliminary Resulted Blood Peripheral NO GROWTH IN 2 DAYS 10/16/16 16:50 Anaerobic Blood Culture - Preliminary Resulted Blood Peripheral NO GROWTH IN 2 DAYS 10/16/16 19:10 Gram Stain - Final Resulted Sputum Endotracheal 10/16/16 19:10 Sputum Culture - Preliminary Resulted Beta Strep Not Group A 10/17/16 04:50 Gram Stain - Final Resulted Sputum Endotracheal 10/17/16 04:50 Sputum Culture - Preliminary Resulted Beta Strep Not Group A 10/17/16 10:36 Urine Culture - Final Complete Urine Catheterized Urine NO GROWTH IN 48 HOURS. 10/17/16 10:36 Legionella Antigen - Final Complete Urine Catheterized Urine PRESUMPTIVE NEGATIVE FOR LEGIONELLA P... 10/17/16 10:36 Streptococcus pneumoniae Antigen (M - Final Complete Urine Catheterized Urine PRESUMPTIVE NEGATIVE FOR STREPTOCOCCU... 10/18/16 09:31 Aerobic Blood Culture Received Blood Peripheral Pending 10/18/16 09:31 Anaerobic Blood Culture Received Blood Peripheral Pending 10/18/16 09:42 Aerobic Blood Culture Received Blood Peripheral Pending 10/18/16 09:42 Anaerobic Blood Culture Received Blood Peripheral Pending 10/18/16 13:32 Gram Stain - Final Resulted Sputum Endotracheal 10/18/16 13:32 Sputum Culture Resulted Sputum Endotracheal Pending Imaging Last Impressions Liver Ultrasound 10/18/16 0000 Signed Impressions: Service Date/Time: Tuesday, October 18, 2016 16:24 - CONCLUSION: 1. Questionable pancreatic edema. 2. Increased liver echogenicity which can reflect fatty infiltration or hepatocellular disease. 3. Trace right perinephric fluid. Vladimir Escalera MD Chest X-Ray 10/18/16 0000 Signed Impressions: Service Date/Time: Tuesday, October 18, 2016 03:23 - CONCLUSION: Worsening left lung infiltrate with new right lung infiltrate. Venkatesh Peña Jr., MD Renal Ultrasound 10/17/16 0000 Signed Impressions: Service Date/Time: Monday, October 17, 2016 10:35 - CONCLUSION: 1. No findings to indicate renal obstruction. 2. Increased echotexture of the renal cortex suggesting underlying medical renal disease. Jaret Carranza MD Head CT 10/16/16 1611 Signed Impressions: Service Date/Time: Sunday, October 16, 2016 17:11 - CONCLUSION: 1. A 1.1 cm area of diminished attenuation in the left side of the cerebellar vermis with extensive diminished density in the sharon extending up into the cerebral peduncles and the right thalamic nuclei. An infarct in these regions would be presumably incompatible with life and therefore, I'm concerned that these may represent metastatic deposits. MRI of the brain with and without gadolinium is recommended for further characterization. 2. Mild sinusitis in the left sphenoid. 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 Venkatesh Peña Jr., MD Brain MRI 10/16/16 0000 Signed Impressions: Service Date/Time: Monday, October 17, 2016 00:42 - CONCLUSION: 1. 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 2. See the MRA report separately. 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 Family Conference Time (mins): 44 Family Conference Location: Consult Room Issues Discussed: * Palliative care role, purpose, approach * Additional medical, psychosocial, and spiritual history * Patients general health, functional status, and cognitive changes in the months leading up to the current hospitalization * Patient/family understanding of the current medical problems * Patient/family understanding of prognosis * Patients goals of care as best understood from advance directives and/or conversations and/or values * Current medical treatment options and benefits/burdens of those options * Likely scenarios comparing ongoing aggressive care with a transition to comfort measures only * Questions answered to the best of my ability * Palliative care contact information provided . 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 Spiritual: The patient is Yazidism, and her spirituality has been important for her. The family wants a district wildlife manager to come "for last rights." Legal: The patient lacks capacity for decision making, and she will not regain that capacity. Her daughter Lizette is the designated primary healthcare surrogate, and vini Baker is designated as secondary. Ethical issues impacting care: None. Important Contacts Daughter Lizette Liriano Home: Son Samuel: [phone] Son Markus: [phone] . Prognosis The patient is terminal. The injuries to her brain and brainstem cannot be overcome. She is appropriate for hospice services if she survives withdrawal of life support. . Code Status: No Code Plan * DO NOT RESUSCITATE * DECISION-MAKING: The patient lacks capacity for decision making, and she will not regain that capacity. Her daughter Lizette is the designated primary healthcare surrogate, and vini Baker is designated as secondary. * SYMPTOMS: The patient did have chronic pain, but is showing no signs of pain at this time. Her dyspnea is currently being managed with the mechanical ventilator, but will be managed with morphine/Ativan after withdrawal of life support. * Director Export notified, district wildlife manager is called to come visit the patient. * GOALS: All 3 children and grandchildren agree that the patient would not want to be kept alive artificially, and that she would want to be allowed to naturally. They request withdrawal of life support and transition to comfort only care today. * Palliative Care will continue to follow the patient during this hospitalization. . Time Spent Total Floor Time (mins): 79 Face to Face Time (mins): 55 >50% Counseling/Coord of Care: Yes (d/w/ Dr. Da benz with RNs) Thank you for the opportunity to participate in the care of Ms. Farias. Attestation To help prompt me to consider important information that might be impacting today's encounter and assessment, information from prior notes written by myself or my colleagues may have been "brought forward" into today's note. My signature on this note, however, is an attestation that I personally performed the exam, history, and/or decision-making noted today, and, unless otherwise indicated, the interactions with patient, family, and staff as well as the review of records all occurred today. I also attest that the listed assessment and stated plan reflect my best clinical judgment today based on the combination of historical information, prior notes, and today's exam/ interactions. When time spent is documented, it refers only to time spent today by the signer, or if indicated, combined time spent today by collaborating physician/nurse practitioner. Nicolasa London MD Oct 19, 2016 10:54
[2016-10-19] MEDS ORDERED: VANCOMYCIN INJ 1,250 MG in SODIUM CHLOR 0.9% 250 ML INJ 250 ML IV ONE (11:00)
[2016-10-19] MEDS ORDERED: MORPHINE SULFATE 8 MG/ML INJ IV PUSH ONE (11:45)
[2016-10-19] MEDS ORDERED: LORazepam 2 MG/ML VIAL IV ONE ×2 (11:45→12:15)
[2016-10-19] MEDS ORDERED: HYOSCYAMINE 0.125 MG TAB PO PRN (11:45)
[2016-10-19] MEDS ORDERED: LORazepam 2 MG/ML VIAL IV PRN ×2 (12:15)
[2016-10-19] MEDS ORDERED: MORPHINE SULFATE 4 MG/ML INJ IV PRN (12:15)
[2016-10-19] MEDS ORDERED: FUROSEMIDE 20 MG/2 ML VIAL IV PRN (12:15)
[2016-10-19] MEDS ORDERED: MORPHINE SULFATE 4 MG/ML INJ IV ONE (12:15)
[2016-10-19] MEDS ORDERED: ACETAMINOPHEN 650 MG SUPP PR PRN (12:15)
[2016-10-19] MEDS ORDERED: BISACODYL 10 MG SUPP PR PRN (12:15)
[2016-10-19] MEDS ORDERED: LORazepam 2 MG/ML VIAL IVS PRN (12:15)
[2016-10-19] MEDS ORDERED: MORPHINE SULFATE 8 MG/ML INJ IV PUSH PRN (12:15)
--- NOTE | 2016-10-19 13:44 | HHI.IDPN ---
Subjective Subjective Remarks Delayed entry patient seen at ~ 9 am Overnight events reviewed Persistent fevers Not much neuro response. No diarrhea No rash Remains on vent. No withdrawal to painful stimuli. Antibiotics Azactam Vanco IV Lines Line sites with no e.o infection. Past Medical History reviewed Allergies: Coded Allergies: Penicillin (Verified Allergy, Severe, HIVES, 10/16/16) Objective . Vital Signs Date Time Temp Pulse Resp B/P Pulse Ox O2 Delivery O2 Flow Rate FiO2 10/19/16 08:17 99 40 10/19/16 06:00 155 10/19/16 04:04 98 40 10/19/16 04:00 103 10/19/16 04:00 101.3 89 22 153/70 98 10/19/16 04:00 40 10/19/16 02:00 103 10/19/16 00:00 40 10/19/16 00:00 109 10/19/16 00:00 101.2 109 22 148/90 98 10/18/16 23:36 98 40 10/18/16 22:00 101 10/18/16 20:00 40 10/18/16 20:00 101.0 137 24 106/78 98 10/18/16 20:00 120 10/18/16 19:44 98 40 10/18/16 18:00 142 10/18/16 16:56 98 40 10/18/16 16:00 100.0 122 21 130/56 100 10/18/16 16:00 40 10/18/16 16:00 122 10/18/16 14:00 110 10/18/16 10/18/16 10/19/16 15:00 23:00 07:00 Intake Total 1220 ml 1160 ml 861 ml Output Total 600 ml 1000 ml 625 ml Balance 620 ml 160 ml 236 ml Intake Oral 0 ml IV Total 875 ml 682 ml 573 ml Tube Feeding 105 ml 178 ml 288 ml Other 240 ml 300 ml Output Urine Total 600 ml 1000 ml 625 ml # Bowel Movements 0 . Laboratory Tests Test 10/18/16 10/19/16 03:45 05:00 White Blood Count 20.3 TH/MM3 13.9 TH/MM3 Red Blood Count 3.86 MIL/MM3 3.54 MIL/MM3 Hemoglobin 10.9 GM/DL 10.1 GM/DL Hematocrit 35.6 % 31.1 % Mean Corpuscular Volume 92.1 FL 87.9 FL Mean Corpuscular Hemoglobin 28.2 PG 28.4 PG Mean Corpuscular Hemoglobin 30.6 % 32.4 % Concent Red Cell Distribution Width 16.8 % 16.5 % Platelet Count 239 TH/MM3 175 TH/MM3 Mean Platelet Volume 9.5 FL 9.2 FL Neutrophils (%) (Auto) 86.1 % % Lymphocytes (%) (Auto) 8.5 % % Monocytes (%) (Auto) 4.6 % % Eosinophils (%) (Auto) 0.5 % % Basophils (%) (Auto) 0.3 % % Neutrophils # (Auto) 17.5 TH/MM3 TH/MM3 Lymphocytes # (Auto) 1.7 TH/MM3 TH/MM3 Monocytes # (Auto) 0.9 TH/MM3 TH/MM3 Eosinophils # (Auto) 0.1 TH/MM3 TH/MM3 Basophils # (Auto) 0.1 TH/MM3 TH/MM3 CBC Comment DIFF FINAL AUTO DIFF Differential Comment FINAL DIFF MANUAL Differential Total Cells 100 Counted Neutrophils % (Manual) 78 % Band Neutrophils % 4 % Lymphocytes % 14 % Monocytes % 4 % Neutrophils # (Manual) 11.4 TH/MM3 Platelet Estimate NORMAL Platelet Morphology Comment NORMAL Laboratory Tests Test 10/17/16 10/17/16 10/18/16 10/19/16 17:45 22:55 03:45 05:50 Troponin I 5.59 NG/ML 5.89 NG/ML Sodium Level 147 MEQ/L 145 MEQ/L Potassium Level 4.1 MEQ/L 3.7 MEQ/L Chloride Level 116 MEQ/L 113 MEQ/L Carbon Dioxide Level 18.8 MEQ/L 19.3 MEQ/L Anion Gap 12 MEQ/L 13 MEQ/L Blood Urea Nitrogen 57 MG/DL 56 MG/DL Creatinine 2.15 MG/DL 1.66 MG/DL Estimat Glomerular Filtration 22 ML/MIN 30 ML/MIN Rate Random Glucose 180 MG/DL 224 MG/DL Lactic Acid Level 2.7 mmol/L Calcium Level 7.4 MG/DL 7.2 MG/DL Protein Corrected Calcium 8.1 MG/DL 7.8 MG/DL Total Bilirubin 0.5 MG/DL 0.5 MG/DL Aspartate Amino Transf 194 U/L 79 U/L (AST/SGOT) Alanine Aminotransferase 128 U/L 110 U/L (ALT/SGPT) Alkaline Phosphatase 90 U/L 82 U/L Total Protein 5.8 GM/DL 5.9 GM/DL Albumin 2.0 GM/DL 1.7 GM/DL Microbiology Date/Time Procedure Status Source Growth 10/16/16 16:42 Aerobic Blood Culture - Preliminary Resulted Blood Peripheral NO GROWTH IN 3 DAYS 10/16/16 16:42 Anaerobic Blood Culture - Preliminary Resulted Staphylococcus Epidermidis 10/16/16 16:46 Influenza Types A,B Antigen ([place]) - Final Complete Nasal Aspirate NEGATIVE FOR FLU A AND B ANTIGEN.... 10/16/16 16:50 Aerobic Blood Culture - Preliminary Resulted Blood Peripheral NO GROWTH IN 3 DAYS 10/16/16 16:50 Anaerobic Blood Culture - Preliminary Resulted Blood Peripheral NO GROWTH IN 3 DAYS 10/16/16 19:10 Gram Stain - Final Complete Sputum Endotracheal 10/16/16 19:10 Sputum Culture - Final Complete Beta Strep Not Group A 10/17/16 04:50 Gram Stain - Final Complete Sputum Endotracheal 10/17/16 04:50 Sputum Culture - Final Complete Beta Strep Not Group A 10/17/16 10:36 Urine Culture - Final Complete Urine Catheterized Urine NO GROWTH IN 48 HOURS. 10/17/16 10:36 Legionella Antigen - Final Complete Urine Catheterized Urine PRESUMPTIVE NEGATIVE FOR LEGIONELLA P... 10/17/16 10:36 Streptococcus pneumoniae Antigen (M - Final Complete Urine Catheterized Urine PRESUMPTIVE NEGATIVE FOR STREPTOCOCCU... 10/18/16 09:31 Aerobic Blood Culture - Preliminary Resulted Blood Peripheral NO GROWTH IN 1 DAY 10/18/16 09:31 Anaerobic Blood Culture - Preliminary Resulted Blood Peripheral NO GROWTH IN 1 DAY 10/18/16 09:42 Aerobic Blood Culture - Preliminary Resulted Blood Peripheral NO GROWTH IN 1 DAY 10/18/16 09:42 Anaerobic Blood Culture - Preliminary Resulted Blood Peripheral NO GROWTH IN 1 DAY 10/18/16 13:32 Gram Stain - Final Resulted Sputum Endotracheal 10/18/16 13:32 Sputum Culture Resulted Sputum Endotracheal Pending Imaging Last Impressions Liver Ultrasound 10/18/16 0000 Signed Impressions: Service Date/Time: Tuesday, October 18, 2016 16:24 - CONCLUSION: 1. Questionable pancreatic edema. 2. Increased liver echogenicity which can reflect fatty infiltration or hepatocellular disease. 3. Trace right perinephric fluid. Vladimir Escalera MD Chest X-Ray 10/18/16 0000 Signed Impressions: Service Date/Time: Tuesday, October 18, 2016 03:23 - CONCLUSION: Worsening left lung infiltrate with new right lung infiltrate. Venkatesh Peña Jr., MD Renal Ultrasound 10/17/16 0000 Signed Impressions: Service Date/Time: Monday, October 17, 2016 10:35 - CONCLUSION: 1. No findings to indicate renal obstruction. 2. Increased echotexture of the renal cortex suggesting underlying medical renal disease. Jaret Carranza MD Head CT 10/16/16 1611 Signed Impressions: Service Date/Time: Sunday, October 16, 2016 17:11 - CONCLUSION: 1. A 1.1 cm area of diminished attenuation in the left side of the cerebellar vermis with extensive diminished density in the sharon extending up into the cerebral peduncles and the right thalamic nuclei. An infarct in these regions would be presumably incompatible with life and therefore, I'm concerned that these may represent metastatic deposits. MRI of the brain with and without gadolinium is recommended for further characterization. 2. Mild sinusitis in the left sphenoid. 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 Venkatesh Peña Jr., MD Brain MRI 10/16/16 0000 Signed Impressions: Service Date/Time: Monday, October 17, 2016 00:42 - CONCLUSION: 1. 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 2. See the MRA report separately. Venkatesh Peña Jr., MD Physical Exam GENERAL: This is a well-nourished, well-developed patient, in no apparent distress. SKIN: No rashes, ecchymoses or lesions. Cool and dry. HEAD: Atraumatic. Normocephalic. No temporal or scalp tenderness. EYES: No scleral icterus. No injection or drainage. ENT: Nose without bleeding, purulent drainage or septal hematoma. Throat without erythema, tonsillar hypertrophy or exudate. Uvula midline. Airway patent. NECK: Trachea midline. Supple, nontender, no meningeal signs. CARDIOVASCULAR: RRR. No murmur appreciated. RESPIRATORY: Clear to auscultation. Breath sounds equal bilaterally. No wheezes , rales, or rhonchi. GASTROINTESTINAL: Abdomen soft, non-tender, nondistended. MUSCULOSKELETAL: Extremities without clubbing, cyanosis, or edema. NEUROLOGICAL: does not withdraw to painful stimuli. No spontaneous eye opening. Psych: could not be assessed IV line sites with no e.o infection. Assessment & Plan Remarks Possible sepsis present on admission. Staph epidermidis: likely contaminant. Await repeat blood cultures. Aspiration pneumonia present on admission. Now ? component of aspiration in health care setting ? HCAP Persistent fevers: infection plus component of central fever (given multiple infarcts in brain) Multi infarct Ischemic strokes extensive based on review of MRI. Acute encephalopathy: stroke, infection. HTN Dyslipidemia DM uncontrolled. Penicillin allergy Recs Continue Azactam IV Continue Levaquin IV (better strep and also additional PSAE plus atypical coverage) Continue Vanco IV (target 15-20) for pneumonia per levels. Not much urine output. Follow clinically Await Palliative care input: family meeting ongoing. Noted Full code at present time. Chantal Garcia RN, MD Oct 19, 2016 13:43
[2016-10-19] MEDS ORDERED: LORazepam 2 MG/ML VIAL IV SCH (16:00)
[2016-10-19] MEDS ORDERED: MORPHINE SULFATE 4 MG/ML INJ IV SCH (16:00)
--- NOTE | 2016-12-08 22:23 | MD ---
cc: SAVANNAH CORONEL ADMISSION DATE: 10/16/2016 DISCHARGE DATE: 10/19/2016 1939 EXPIRATION DATE 10/19/16 The patient is a 76-year-old female with past medical history of hypertension, dyslipidemia, diabetes mellitus who was found unresponsive in her home. The patient had not been seen by her neighbors for approximately 2-3 days and, on arrival of paramedics, she was found unresponsive and in respiratory distress. A CT scan of the brain on arrival showed findings which may represent metastatic deposits. MRI of the brain was obtained which showed multifocal non hemorrhagic acute infarctions involving the right MCA territory as well as thalami, sharon, cerebral, peduncles and cerebellum. MRA of the brain showed occlusion of the right carotid artery, right posterior cerebellar artery and left middle cerebral artery. The patient required intubation and mechanical ventilation. During her hospital course, she went into an atrial fibrillation with RVR and was given Lopressor for rate control. Dr. Cardenas from neurology evaluated the patient and she was placed on aspirin daily. EEG from October 17 showed moderate encephalopathy. The patient remained on Lopressor for rate control and echocardiogram was obtained which showed ejection fraction of 35%, severe pulmonary hypertension with a PA pressure of 74 mmHg. Due to multiple strokes including brain stem, the patient did not start on any anticoagulation due to high risk of hemorrhagic conversion. She was also placed on bicarb drip and free water. Renal ultrasound showed no evidence of any obstruction and was being followed by Dr. Mcarthur. Nutrition support has been provided in the form of tube feeds with Nepro at 40 mL an hour. The patient had elevation of liver enzymes and ultrasound of liver obtained which showed possible fatty infiltration or hepatocellular disease. The patient was placed on broad-spectrum antibiotics in the form of vancomycin, Levaquin and aztreonam and her sputum culture from October 17 was positive for beta strep not group A. She was also on sliding scale insulin for glycemic control and GI prophylaxis. Palliative care met with family and they elected to proceed with withdrawal of life support and transition to comfort care. The patient was critically ill with respiratory failure, encephalopathy, multiple CVAs including brain stem, elevated troponins. renal failure and pneumonia. She on October 19. MD MARI Douglas/ /12:20 PM /10:14 PM
== END 2016-10-19 13:00 | disposition expired | DRG 871 ==
LOC: PHED 16:06 → PHEDA 18:18 → HIMN 21:10
PROVIDERS: ADMIT Internal Medicine Critical Care Medicine; ATTEND Internal Medicine Critical Care Medicine
PROC: 0BH17EZ Insertion of Endotracheal Airway into Trachea, Via Natural or Artificial Opening (ICD-10-PCS; principal; 2016-10-16)
PROC: 5A1945Z Respiratory Ventilation, 24-96 Consecutive Hours (ICD-10-PCS; 2016-10-16)
DX: A41.9 Sepsis, unspecified organism (principal); I63.511 Cerebral infarction due to unspecified occlusion or stenosis of right middle cerebral artery; I21.4 Non-ST elevation (NSTEMI) myocardial infarction; J96.01 Acute respiratory failure with hypoxia; J69.0 Pneumonitis due to inhalation of food and vomit; R40.20 Unspecified coma; I63.531 Cerebral infarction due to unspecified occlusion or stenosis of right posterior cerebral artery; N17.9 Acute kidney failure, unspecified; G93.41 Metabolic encephalopathy; I63.231 Cerebral infarction due to unspecified occlusion or stenosis of right carotid arteries; E46 Unspecified protein-calorie malnutrition; Z68.1 Body mass index [BMI] 19.9 or less, adult; E87.0 Hyperosmolality and hypernatremia; I48.91 Unspecified atrial fibrillation; I10 Essential (primary) hypertension; E86.0 Dehydration; E78.5 Hyperlipidemia, unspecified; I44.7 Left bundle-branch block, unspecified; Z51.5 Encounter for palliative care; H35.30 Unspecified macular degeneration; G89.29 Other chronic pain; Z66 Do not resuscitate; I27.2 Other secondary pulmonary hypertension; E11.65 Type 2 diabetes mellitus with hyperglycemia; Z79.4 Long term (current) use of insulin
CPT/HCPCS: 31500; 36600; 70450; 70544; 70553; 71010; 76705; 76775; 76937; 80048; 80053; 80061; 80202; 81001; 82550; 82552; 82805; 82948; 83605; 83735; 84100; 84155; 84484; 85007; 85025; 85027; 85610; 85730; 87040; 87070; 87086; 87186; 87205; 87449; 87641; 87804; 93005; 93306; 94002; 94003; 94640; 94664; 95819; 96360; 96361; 96374; A9577; J0456; J0610; J1644; J1940; J1956; J2060; J2270; J3370; J3475; J3480; J7030; J7050